=== PATIENT | male | born 1965 | race American Indian/Alaskan Native ===

== ENCOUNTER 2020-07-04 21:43 | Emergency (ER) | payer SELFPAY ==
--- NOTE | 2020-07-04 21:45 | Event Note ---
ED Screening Note Date of service: 07/04/20 Time: 21:45 ED Screening Note: Patient complains of shortness of breath, cough, body aches, and diarrhea x3 days History of hypertension This initial assessment/diagnostic orders/clinical plan/treatment(s) is/are subject to change based on patients health status, clinical progression and re- assessment by fellow clinical providers in the ED. Further treatment and workup at subsequent clinical providers discretion. Patient/guardian urged not to elope from the ED as their condition may be serious if not clinically assessed and managed. Initial orders include: Labs Chest x-ray
[2020-07-04 22:15] LABS: Basophils # (Auto) 0.1 K/mm3 (0.0-0.1); Basophils % (Auto) 0.8 % (0.0-1.8); Hematocrit 46.7 % (35.5-45.6); Hemoglobin 15.5 gm/dl (11.8-15.2); Lymphocytes # (Auto) 2.1 K/mm3 (1.2-5.4); Lymphocytes % (Auto) 32.4 % (13.4-35.0); Mean Corpuscular HGB Conc 33 % (32-34); Mean Corpuscular Volume 95 fl (84-94); Monocytes # (Auto) 0.3 K/mm3 (0.0-0.8); Platelet Count 154 K/mm3 (140-440); Red Cell Distribution Width 12.5 % (13.2-15.2)
[2020-07-04 22:35] LABS: Alanine Aminotransferase 66 units/L (7-56); Albumin 4.4 g/dL (3.9-5); BUN/Creatinine Ratio 13; Blood Urea Nitrogen 17 mg/dL (9-20); Calcium 9.2 mg/dL (8.4-10.2); Hemolysis Index 24
--- NOTE | 2020-07-04 22:54 | XRay Report ---
CHEST 2 VIEWS, 07/04/2020 10:16 PM INDICATION: Shortness of breath COMPARISON: None FINDINGS: Support devices: None. Heart: The cardiac silhouette is normal in size. Lungs/pleura: Low lung volumes are noted bilaterally without focal airspace consolidation or signific ant pleural effusion. Additional findings: No significant acute abnormality. IMPRESSION: 1. No evidence of acute cardiopulmonary process. Signer Name: Ruma Yañez MD Signed: 07/04/2020 10:49 PM Workstation Name: [id number]
--- NOTE | 2020-07-05 06:33 | Emergency Department Report ---
ED General Adult HPI - General Chief complaint: Dyspnea/Respdistress Stated complaint: COVID SYMP Time Seen by Provider: 07/04/20 21:44 Source: patient Mode of arrival: Ambulatory Limitations: No Limitations - History of Present Illness Initial comments: Patient is a 54-year-old hypertensive male presents to emergency department for evaluation of 4 days of nonproductive cough, body aches, and intermittent dyspnea exclusively while coughing. Patient denies chest pain, denies fever. Patient's tested positive for Covid, patient has COVID-19 test scheduled for later today. Patient denies calf pain or swelling. Severity scale (0 -10): 10 - Related Data Previous Rx's Medication Instructions Recorded Last Taken Type Cholecalciferol (Vitamin D3) 1,000 units PO DAILY #10 capsule 07/05/20 Unknown Rx [Vitamin D3] Melatonin [Melatonin 5MG CAP] 5 mg PO QHS #10 capsule 07/05/20 Unknown Rx Zinc Sulfate Heptahydrate [Zinc 1,000 gm MC DAILY #10 tab 07/05/20 Unknown Rx Sulfate] Allergies Allergy/AdvReac Type Severity Reaction Status Date / Time No Known Allergies Allergy Verified 04/08/15 17:46 ED Review of Systems ROS: Stated complaint: COVID SYMP Other details as noted in HPI Comment: All other systems reviewed and negative ED Past Medical Hx - Past Medical History Hx Hypertension: Yes Hx Psychiatric Treatment: No Additional medical history: deejay - Surgical History Additional Surgical History: deejay - Social History Smoking Status: Never Smoker - Medications Home Medications: Home Medications Medication Instructions Recorded Confirmed Last Taken Type Cholecalciferol (Vitamin D3) 1,000 units PO DAILY #10 capsule 07/05/20 Unknown Rx [Vitamin D3] Melatonin [Melatonin 5MG CAP] 5 mg PO QHS #10 capsule 07/05/20 Unknown Rx Zinc Sulfate Heptahydrate [Zinc 1,000 gm MC DAILY #10 tab 07/05/20 Unknown Rx Sulfate] ED Physical Exam - General Limitations: No Limitations General appearance: alert, in no apparent distress - Head Head exam: Present: atraumatic, normocephalic - Eye Eye exam: Present: normal appearance - ENT ENT exam: Present: mucous membranes moist - Neck Neck exam: Present: normal inspection - Respiratory Respiratory exam: Present: normal lung sounds bilaterally. Absent: respiratory distress - Cardiovascular Cardiovascular Exam: Present: regular rate, normal rhythm. Absent: systolic murmur, diastolic murmur, rubs, gallop - GI/Abdominal GI/Abdominal exam: Present: soft, normal bowel sounds - Rectal Rectal exam: Present: deferred - Extremities Exam Extremities exam: Present: normal inspection - Back Exam Back exam: Present: normal inspection - Neurological Exam Neurological exam: Present: alert, oriented X3 - Psychiatric Psychiatric exam: Present: normal affect, normal mood - Skin Skin exam: Present: warm, dry, intact, normal color. Absent: rash ED Course Vital Signs 07/04/20 07/05/20 07/05/20 21:46 06:09 06:16 Temperature 100.6 F H 99.5 F Pulse Rate 107 H 95 H Respiratory 18 24 Rate Blood Pressure 151/89 130/81 [Right] O2 Sat by Pulse 100 96 Oximetry - Reevaluation(s) Reevaluation #1: Patient treated with IV NS for dehydration per lab work and Tylenol 650 p.o. x1 for fever in ER. 07/05/20 06:34 07/05/20 06:35 Reevaluation #2: 07/05/20 06:35 On reevaluation, patient in no acute distress, lungs remain clear to auscultation bilaterally, patient nontoxic-appearing, advised to follow-up with Covid test today as scheduled. ED Medical Decision Making - Lab Data Result diagrams: 07/04/20 22:01 07/04/20 22:01 - EKG Data -: EKG Interpreted by Me (Sinus rhythm at 87, no ST-T changes, normal QRS as read by me) - Radiology Data Radiology results: report reviewed CHEST 2 VIEWS, 07/04/2020 10:16 PM INDICATION: Shortness of breath COMPARISON: None FINDINGS: Support devices: None. Heart: The cardiac silhouette is normal in size. Lungs/pleura: Low lung volumes are noted bilaterally without focal airspace consolidation or significant pleural effusion. Additional findings: No significant acute abnormality. IMPRESSION: 1. No evidence of acute cardiopulmonary process. Signer Name: Ruma Yañez MD Signed: 07/04/2020 10:49 PM Workstation Name: [id number] Transcribed By: EB Dictated By: Ruma Yañez MD Electronically Authenticated By: Ruma Yañez MD Signed Date/Time: 07/04/20 1068 Critical care attestation.: If time is entered above; I have spent that time in minutes in the direct care of this critically ill patient, excluding procedure time. ED Disposition Clinical Impression: Upper respiratory infection Disposition: DC-01 TO HOME OR SELFCARE Is pt being admited?: No Condition: Stable Instructions: COVID-19 Frequently Asked Questions, Upper Respiratory Infection, Adult, [id number] Additional Instructions: Follow-up for COVID-19 testing today as initially scheduled. Return to the emergency department for worsening symptoms. Prescriptions: Melatonin [Melatonin 5MG CAP] 5 mg PO QHS #10 capsule Cholecalciferol (Vitamin D3) [Vitamin D3] 1,000 units PO DAILY #10 capsule Zinc Sulfate Heptahydrate [Zinc Sulfate] 1,000 gm MC DAILY #10 tab Referrals: PRIMARY CARE, [Primary Care Provider] - 3-5 Days
[2020-07-05] MEDS ORDERED: ACETAMINOPHEN 325 MG TAB PO ONE (06:34)
[2020-07-05] MEDS ORDERED: SODIUM CHLORIDE 0.9% 1000 ML 1,000 ML ONE (06:50)
[2020-07-05] MEDS ORDERED: SODIUM CHLORIDE 0.9% 1000 ML 1,000 ML IV ONE (06:53)
[2020-07-05 09:04] VITALS: BP 131/74
== END 2020-07-05 09:02 | disposition home or self-care (01) ==
LOC: ED 21:43
DX: J06.9 Acute upper respiratory infection, unspecified (principal); I10 Essential (primary) hypertension; Z79.899 Other long term (current) drug therapy; Z98.890 Other specified postprocedural states
CPT/HCPCS: 36415; 71046; 80053; 83880; 84484; 85025; 93005; 96360; 96361; 99284; J7030

== ENCOUNTER 2020-07-08 17:26 | Inpatient (IN) | payer OTHER ==
[2020-07-08] MEDS ORDERED: SODIUM CHLORIDE 0.9% 1000 ML IV SOLN IV ONE (17:30)
[2020-07-08] MEDS ORDERED: dexAMETHasone 4 MG/ML VIAL IV ONE (17:33)
[2020-07-08] MEDS ORDERED: ACETAMINOPHEN 325 MG TAB PO ONE (17:33)
[2020-07-08] MEDS ORDERED: cefTRIAXone/NS 2 GM/100 ML 2 GM/100 ML BAG IV ONE (17:33)
--- NOTE | 2020-07-08 17:34 | Event Note ---
ED Screening Note ED Screening Note: Patient was diagnosed with Covid few days ago Now presenting for shortness of breath Patient is hypoxic, tachypneic, febrile, hypotensive This initial assessment/diagnostic orders/clinical plan/treatment(s) is/are subject to change based on patients health status, clinical progression and re-assessment by fellow clinical providers in the ED. Further treatment and workup at subsequent clinical providers discretion. Patient/guardian urged not to elope from the ED as their condition may be serious if not clinically assessed and managed. Initial orders include: Code sepsis initiated Charge nurse notified patient needs room now
--- NOTE | 2020-07-08 17:59 | Emergency Department Report ---
ED Shortness of Breath HPI - General Chief Complaint: Dyspnea/Respdistress Stated Complaint: POSS COVID Time Seen by Provider: 07/08/20 17:30 Source: patient, family Mode of arrival: Wheelchair Limitations: No Limitations - History of Present Illness Initial Comments: Patient is 54 years old male with history of hypertension. Patient presented to the ER complaining of shortness of breath, difficulty in breathing and generalized weakness for the last few days. Patient stated that symptoms get worse today. Patient tested positive for COVID-19 few days ago. Upon arrival to triage patient found to have a blood pressure of 96/50, temperature of 103, respiratory of 60 and an oxygen saturation of 76% on room air. Patient immediately moved to main ED and his oxygen saturation improved to 100% on 3 L of oxygen and respiratory rate came down to 26 after Tylenol and oxygen. Sepsis protocol immediately initiated and patient started on IV fluids, Rocephin, Zithromax and received Decadron 8mg IV. MD Complaint: shortness of breath, cough, chest pain -: days(s) Severity: severe Consistency: constant - Related Data Previous Rx's Medication Instructions Recorded Last Taken Type Cholecalciferol (Vitamin D3) 1,000 units PO DAILY #10 capsule 07/05/20 Unknown Rx [Vitamin D3] Melatonin [Melatonin 5MG CAP] 5 mg PO QHS #10 capsule 07/05/20 Unknown Rx Zinc Sulfate Heptahydrate [Zinc 1,000 gm MC DAILY #10 tab 07/05/20 Unknown Rx Sulfate] Allergies Allergy/AdvReac Type Severity Reaction Status Date / Time No Known Allergies Allergy Verified 04/08/15 17:46 ED Review of Systems ROS: Stated complaint: POSS COVID Other details as noted in HPI Comment: All other systems reviewed and negative Constitutional: chills, fever Respiratory: cough, shortness of breath, SOB with exertion, SOB at rest Cardiovascular: palpitations. denies: chest pain Gastrointestinal: denies: abdominal pain, nausea, vomiting Musculoskeletal: denies: back pain Neurological: denies: headache, weakness ED Past Medical Hx - Past Medical History Previous Medical History?: Yes Hx Hypertension: Yes Hx Psychiatric Treatment: No Additional medical history: deejay - Surgical History Additional Surgical History: deejay - Social History Smoking Status: Never Smoker - Medications Home Medications: Home Medications Medication Instructions Recorded Confirmed Last Taken Type Cholecalciferol (Vitamin D3) 1,000 units PO DAILY #10 capsule 07/05/20 Unknown Rx [Vitamin D3] Melatonin [Melatonin 5MG CAP] 5 mg PO QHS #10 capsule 07/05/20 Unknown Rx Zinc Sulfate Heptahydrate [Zinc 1,000 gm MC DAILY #10 tab 07/05/20 Unknown Rx Sulfate] ED Physical Exam - General Limitations: No Limitations General appearance: alert, in distress - Head Head exam: Present: atraumatic, normocephalic, normal inspection - Eye Eye exam: Present: normal appearance - ENT ENT exam: Present: mucous membranes dry - Neck Neck exam: Present: normal inspection, full ROM. Absent: tenderness, meningismus, lymphadenopathy, thyromegaly - Respiratory Respiratory exam: Present: respiratory distress, rales, accessory muscle use. Absent: wheezes, rhonchi, stridor, decreased breath sounds, prolonged expiratory - Cardiovascular Cardiovascular Exam: Present: tachycardia - GI/Abdominal GI/Abdominal exam: Present: soft, normal bowel sounds. Absent: distended, tenderness, guarding, rebound, rigid, organomegaly, mass, bruit, pulsatile mass, hernia - Extremities Exam Extremities exam: Present: normal inspection, full ROM, normal capillary refill. Absent: pedal edema, calf tenderness - Back Exam Back exam: Present: normal inspection, full ROM. Absent: CVA tenderness (R), CVA tenderness (L) - Neurological Exam Neurological exam: Present: alert, oriented X3, CN II-XII intact, normal gait, reflexes normal. Absent: motor sensory deficit - Psychiatric Psychiatric exam: Present: anxious - Skin Skin exam: Present: warm, dry, intact, normal color ED Course Vital Signs 07/08/20 07/08/20 07/08/20 17:30 17:34 17:50 Temperature 103 F H Pulse Rate 132 H 126 H Respiratory 60 H 60 H 40 H Rate Blood Pressure 130/92 Blood Pressure 96/69 [Right] O2 Sat by Pulse 72 L 92 Oximetry 07/08/20 07/08/20 07/08/20 18:00 18:30 18:44 Temperature Pulse Rate 126 H 127 H Respiratory 40 H 43 H 37 H Rate Blood Pressure 104/85 Blood Pressure 136/96 [Right] O2 Sat by Pulse 94 94 100 Oximetry ED Medical Decision Making - Lab Data Result diagrams: 07/08/20 17:38 12/20/20 17:38 - Radiology Data Radiology results: report reviewed - Medical Decision Making Patient is 54 years old male with history of hypertension. Patient presented to the ER complaining of shortness of breath, difficulty in breathing and generalized weakness for the last few days. Patient stated that symptoms get worse today. Patient tested positive for COVID-19 few days ago. Upon arrival to triage patient found to have a blood pressure of 96/50, temperature of 103, respiratory of 60 and an oxygen saturation of 76% on room air. Patient immediately moved to main ED and his oxygen saturation improved to 100% on 3 L of oxygen and respiratory rate came down to 26 after Tylenol and oxygen. Sepsis protocol immediately initiated and patient started on IV fluids, Rocephin, Zithromax and received Decadron 8mg IV. Chest x-ray showed bilateral diffuse infiltrate. Patient stated that he is feeling better. I discussed the patient with Dr. Núñez, He agreed to admit the patient to medical service for further management. Critical Care Time: Yes Critical care time in (mins) excluding proc time.: 30 Critical care attestation.: If time is entered above; I have spent that time in minutes in the direct care of this critically ill patient, excluding procedure time. ED Disposition Clinical Impression: Acute respiratory failure due to COVID-19, Bilateral pneumonia, Sepsis Disposition: DC-09 OP ADMIT IP TO THIS HOSP Is pt being admited?: Yes Condition: Stable Instructions: Bacterial Pneumonia (ED)
[2020-07-08] MEDS ORDERED: AZITHROMYCIN 500 MG in SODIUM CHLORIDE 0.9% 250ML 250 ML IV ONE (18:00)
--- NOTE | 2020-07-08 18:16 | XRay Report ---
CHEST 1 VIEW 07/08/2020 6:00 PM INDICATION / CLINICAL INFORMATION: SOB, COVID +, hypoxia. COMPARISON: 07/04/2020 FINDINGS: SUPPORT DEVICES: None. HEART / MEDIASTINUM: No significant abnormality. LUNGS / PLEURA: There are patchy airspace opacities bilaterally.. No pneumothorax. ADDITIONAL FINDINGS: No significant additional findings. IMPRESSION: 1. There are patchy airspace opacities bilaterally characteristic of pneumonia. Signer Name: Darrell Vinson MD Signed: 07/08/2020 6:11 PM Workstation Name: [id number]
[2020-07-08 18:49] LABS: Alanine Aminotransferase 32 units/L (7-56); Albumin 3.5 g/dL (3.9-5); BUN/Creatinine Ratio 17; Bilirubin,Direct < 0.2 mg/dL (0-0.2); Blood Urea Nitrogen 22 mg/dL (9-20); Calcium 9.4 mg/dL (8.4-10.2); Hemolysis Index 46
[2020-07-08 18:50] LABS: Bilirubin,Urine NEG (Negative); Blood,Urine NEG (Negative); Color,Urine Amber (Yellow); Mucus,Urine FEW /HPF
[2020-07-08 18:51] LABS: Basophils % (Auto) 0.2 % (0.0-1.8); Hematocrit 47.8 % (35.5-45.6); Hemoglobin 16.1 gm/dl (11.8-15.2); Mean Corpuscular HGB Conc 34 % (32-34); Mean Corpuscular Volume 95 fl (84-94); Monocytes # (Auto) 0.4 K/mm3 (0.0-0.8); Monocytes % (Auto) 4.2 % (0.0-7.3); Platelet Count 214 K/mm3 (140-440); Red Blood Count 5.01 M/mm3 (3.65-5.03); Red Cell Distribution Width 12.4 % (13.2-15.2)
[2020-07-08 19:00] LABS: Protein,Urine >500 mg/dL (Negative)
[2020-07-08] MEDS ORDERED: MORPHINE 2 MG/1 ML INJ IV PRN (21:33)
--- NOTE | 2020-07-08 21:40 | History and Physical Report ---
History of Present Illness Date of examination: 07/08/20 Date of admission: 07/08/2020 Chief complaint: Shortness of breath Cough Fever History of present illness: 54-year-old male with known history of hypertension who tested Covid positive about 3 days ago presenting to the emergency room today complaining of shortness of breath and generalized weakness over the past few days. Shortness of breath is said to have gotten worse today and therefore decided to report to the emergency room. Upon arrival in the emergency room he had a blood pressure of 96/50, temperature of 1 103 F, tachypneic with an O2 saturation of 76% on room air. He was subsequently placed on oxygen 3 L and oxygen saturation improved to about 100%. Work-up in the emergency room today shows bilateral pneumonia on chest x-ray. Lactic acid also elevated at 2.40 Patient was placed on IV fluid per sepsis protocol, IV antibiotics and steroid. He has been admitted with pneumonia possibly secondary to COVID-19. Past History Past Medical History: hypertension Past Surgical History: No surgical history Social history: no significant social history Family history: no significant family history Medications and Allergies Allergies Allergy/AdvReac Type Severity Reaction Status Date / Time No Known Allergies Allergy Verified 04/08/15 17:46 Home Medications Medication Instructions Recorded Confirmed Last Taken Type Cholecalciferol (Vitamin D3) 1,000 units PO DAILY #10 capsule 07/05/20 Unknown Rx [Vitamin D3] Melatonin [Melatonin 5MG CAP] 5 mg PO QHS #10 capsule 07/05/20 Unknown Rx Zinc Sulfate Heptahydrate [Zinc 1,000 gm MC DAILY #10 tab 07/05/20 Unknown Rx Sulfate] Review of Systems Constitutional: fever, chills, fatigue Ears, nose, mouth and throat: no nasal congestion, no sore throat Cardiovascular: no chest pain, no palpitations Respiratory: cough, shortness of breath Gastrointestinal: no abdominal pain, no nausea, no vomiting, no diarrhea Genitourinary Male: no dysuria, no hematuria, no flank pain Musculoskeletal: no neck pain, no low back pain Integumentary: no rash, no pruritis Neurological: no headaches, no confusion Psychiatric: no anxiety, no depression Exam - Constitutional Vitals: Temp Pulse Resp BP Pulse Ox 103 F H 105 H 31 H 114/66 97 07/08/20 17:30 07/08/20 20:39 07/08/20 20:39 07/08/20 20:39 07/08/20 20:39 General appearance: Present: no acute distress, well-nourished - EENT Eyes: Present: PERRL, EOM intact. Absent: scleral icterus ENT: hearing intact, clear oral mucosa, dentition normal - Neck Neck: Present: supple, normal ROM - Respiratory Respiratory effort: normal Respiratory: bilateral: diminished - Cardiovascular Rhythm: regular Heart Sounds: Present: S1 & S2. Absent: gallop, systolic murmur, diastolic murmur, rub - Extremities Extremities: no ischemia, pulses intact, pulses symmetrical, No edema, Full ROM Peripheral Pulses: within normal limits - Abdominal General gastrointestinal: Present: soft, non-tender, non-distended, normal bowel sounds. Absent: mass - Integumentary Integumentary: Present: clear, warm, dry. Absent: rash - Musculoskeletal Musculoskeletal: strength equal bilaterally - Psychiatric Psychiatric: appropriate mood/affect, intact judgment & insight, memory intact, cooperative - Neurologic Neurologic: CNII-XII intact, no focal deficits, moves all extremities Results - Labs CBC & Chem 7: 07/08/20 17:38 07/08/20 17:38 Labs: Abnormal lab results 07/08/20 07/08/20 07/08/20 Range/Units 17:38 17:38 17:38 Hgb 16.1 H (11.8-15.2) gm/dl Hct 47.8 H (35.5-45.6) % MCV 95 H (84-94) fl RDW 12.4 L (13.2-15.2) % Lymph % (Auto) 12.0 L (13.4-35.0) % Lymph # (Auto) 1.0 L (1.2-5.4) K/mm3 Seg Neutrophils % 83.6 H (40.0-70.0) % D-Dimer 284.74 H (0-234) ng/mlDDU Sodium (137-145) mmol/L Chloride (98-107) mmol/L BUN (9-20) mg/dL Glucose (75-100) mg/dL Lactic Acid 2.40 H* (0.7-2.0) mmol/L Ferritin (30.0-300.0) ng/mL AST (5-40) units/L Lactate Dehydrogenase (91-180) units/L C-Reactive Protein (0.00-1.30) mg/dL Total Protein (6.3-8.2) g/dL Albumin (3.9-5) g/dL 07/08/20 07/08/20 07/08/20 Range/Units 17:38 17:38 17:38 Hgb (11.8-15.2) gm/dl Hct (35.5-45.6) % MCV (84-94) fl RDW (13.2-15.2) % Lymph % (Auto) (13.4-35.0) % Lymph # (Auto) (1.2-5.4) K/mm3 Seg Neutrophils % (40.0-70.0) % D-Dimer (0-234) ng/mlDDU Sodium 133 L (137-145) mmol/L Chloride 92.8 L (98-107) mmol/L BUN 22 H (9-20) mg/dL Glucose 131 H 128 H (75-100) mg/dL Lactic Acid (0.7-2.0) mmol/L Ferritin > 2000.0 H (30.0-300.0) ng/mL AST 56 H (5-40) units/L Lactate Dehydrogenase 604 H (91-180) units/L C-Reactive Protein 29.00 H (0.00-1.30) mg/dL Total Protein 8.4 H (6.3-8.2) g/dL Albumin 3.5 L (3.9-5) g/dL Assessment and Plan - Patient Problems (1) Bilateral pneumonia Current Visit: Yes Status: Acute Plan to address problem: Patient started on empiric IV antibiotics. We will await culture results. He however tested positive for COVID-19 few days ago. (2) Acute respiratory failure due to COVID-19 Current Visit: Yes Status: Acute Plan to address problem: Possibly due to the Covid pneumonia. Patient placed on oxygen by nasal cannula and will keep O2 saturation greater or equal to 94%. We will continue on IV antibiotics, placed on IV steroid. Patient also placed on isolation precautions. Infectious disease has been consulted for evaluation. (3) Sepsis Current Visit: Yes Status: Acute Plan to address problem: Secondary to the underlying pneumonia. Patient has been given some IV fluid and IV antibiotics. (4) DVT prophylaxis Current Visit: Yes Status: Acute Plan to address problem: Patient placed on subcutaneous Lovenox. (5) Full code status Current Visit: Yes Status: Acute Plan to address problem: Patient is full code.
[2020-07-08] MEDS ORDERED: SODIUM CHLORIDE 0.9% 1000 ML 1,000 ML IV SCH (21:45)
[2020-07-08] MEDS: ENOXAPARIN 40 MG/0.4 ML INJ SUB-Q SCH (22:42)
[2020-07-09] MEDS: ONDANSETRON 4 MG/2 ML INJ IV PRN (04:37)
[2020-07-09 06:26] LABS: Hematocrit 40.3 % (35.5-45.6); Hemoglobin 13.4 gm/dl (11.8-15.2); Lymphocytes # (Auto) 0.4 K/mm3 (1.2-5.4); Lymphocytes % (Auto) 5.4 % (13.4-35.0); Mean Corpuscular HGB Conc 33 % (32-34); Mean Corpuscular Volume 94 fl (84-94); Monocytes # (Auto) 0.3 K/mm3 (0.0-0.8); Monocytes % (Auto) 5.2 % (0.0-7.3); Red Blood Count 4.28 M/mm3 (3.65-5.03); Red Cell Distribution Width 12.3 % (13.2-15.2)
[2020-07-09 06:41] LABS: INR 1.03 (0.87-1.13)
[2020-07-09 06:43] LABS: BUN/Creatinine Ratio 23; Blood Urea Nitrogen 23 mg/dL (9-20); Calcium 8.4 mg/dL (8.4-10.2); Hemolysis Index 16
[2020-07-09 06:44] LABS: Platelet Count 227 K/mm3 (140-440)
--- NOTE | 2020-07-09 07:44 | Progress Note ---
Assessment and Plan Assessment and plan: 1) Bilateral pneumonia Current Visit: Yes Status: Acute Plan to address problem: Patient started on empiric IV antibiotics. We will await culture results. He however tested positive for COVID-19 few days ago. (2) Acute respiratory failure due to COVID-19 Current Visit: Yes Status: Acute Plan to address problem: Possibly due to the Covid pneumonia. Patient placed on oxygen by nasal cannula and will keep O2 saturation greater or equal to 94%. We will continue on IV antibiotics, placed on IV steroid. Patient also placed on isolation precautions. Infectious disease has been consulted for evaluation. (3) Sepsis Current Visit: Yes Status: Acute Plan to address problem: Secondary to the underlying pneumonia. Patient has been given some IV fluid and IV antibiotics. (4) DVT prophylaxis Current Visit: Yes Status: Acute Plan to address problem: Patient placed on subcutaneous Lovenox. (5) Full code status Current Visit: Yes Status: Acute Plan to address problem: Patient is full code. 07/09/2020; patient is admitted for sepsis secondary to Covid-19 pneumonia versus bacterial pneumonia. Patient is on IV Decadron and ID is consulted for remdesivir treatment. Patient is still short of breath, on 10 L of high flow o xygen. History Interval history: Patient was seen and evaluated this morning Patient is on 15 L of high flow oxygen Hospitalist Physical - Physical exam Narrative exam: Not in cardiopulmonary distress. The patient appeared well nourished and normally developed. Vital signs as documented. Head exam is unremarkable. No scleral icterus . Neck is without jugular venous distension, thyromegaly, or carotid bruits. Lungs are clear to auscultation. Cardiac exam reveals regular rate and Rhythm. Abdominal exam reveals normal bowel sounds, nontender, no organomegaly. Extremities are nonedematous and both femoral and pedal pulses are normal. [employer]: Alert and oriented 3. No focal weakness. - Constitutional Vitals: Temp Pulse Resp BP Pulse Ox 97.6 F 70 26 H 122/75 94 07/09/20 02:00 07/09/20 04:02 07/09/20 04:02 07/09/20 04:02 07/09/20 05:27 General appearance: Present: no acute distress, well-nourished Results - Labs CBC & Chem 7: 07/09/20 06:00 07/09/20 06:00 Labs: Laboratory Last Values WBC 6.7 K/mm3 (4.5-11.0) 07/09/20 06:00 RBC 4.28 M/mm3 (3.65-5.03) 07/09/20 06:00 Hgb 13.4 gm/dl (11.8-15.2) 07/09/20 06:00 Hct 40.3 % (35.5-45.6) D 07/09/20 06:00 MCV 94 fl (84-94) 07/09/20 06:00 MCH 31 pg (28-32) 07/09/20 06:00 MCHC 33 % (32-34) 07/09/20 06:00 RDW 12.3 % (13.2-15.2) L 07/09/20 06:00 Plt Count 227 K/mm3 (140-440) 07/09/20 06:00 Lymph % (Auto) 5.4 % (13.4-35.0) L 07/09/20 06:00 [place] % (Auto) 5.2 % (0.0-7.3) 07/09/20 06:00 Eos % (Auto) 0.0 % (0.0-4.3) 07/09/20 06:00 Baso % (Auto) 0.0 % (0.0-1.8) 07/09/20 06:00 Lymph # (Auto) 0.4 K/mm3 (1.2-5.4) L 07/09/20 06:00 [place] # (Auto) 0.3 K/mm3 (0.0-0.8) 07/09/20 06:00 Eos # (Auto) 0.0 K/mm3 (0.0-0.4) 07/09/20 06:00 Baso # (Auto) 0.0 K/mm3 (0.0-0.1) 07/09/20 06:00 Seg Neutrophils % 89.4 % (40.0-70.0) H 07/09/20 06:00 Seg Neutrophils # 6.0 K/mm3 (1.8-7.7) 07/09/20 06:00 PT 13.3 Sec. (12.2-14.9) 07/09/20 06:00 INR 1.03 (0.87-1.13) 07/09/20 06:00 D-Dimer 284.74 ng/mlDDU (0-234) H 07/08/20 17:38 Sodium 138 mmol/L (137-145) 07/09/20 06:00 Potassium 4.8 mmol/L (3.6-5.0) 07/09/20 06:00 Chloride 101.6 mmol/L (98-107) 07/09/20 06:00 Carbon Dioxide 24 mmol/L (22-30) 07/09/20 06:00 Anion Gap 17 mmol/L 07/09/20 06:00 BUN 23 mg/dL (9-20) H 07/09/20 06:00 Creatinine 1.0 mg/dL (0.8-1.3) 07/09/20 06:00 Estimated GFR > 60 ml/min 07/09/20 06:00 BUN/Creatinine Ratio 23 % 07/09/20 06:00 Glucose 179 mg/dL (75-100) H 07/09/20 06:00 Lactic Acid 1.00 mmol/L (0.7-2.0) 07/08/20 20:58 Calcium 8.4 mg/dL (8.4-10.2) 07/09/20 06:00 Ferritin > 2000.0 ng/mL (30.0-300.0) H 07/08/20 17:38 Total Bilirubin 0.40 mg/dL (0.1-1.2) 07/08/20 17:38 Direct Bilirubin < 0.2 mg/dL (0-0.2) 07/08/20 17:38 Indirect Bilirubin 0.2 mg/dL 07/08/20 17:38 AST 56 units/L (5-40) H 07/08/20 17:38 ALT 32 units/L (7-56) 07/08/20 17:38 Alkaline Phosphatase 57 units/L (35-129) 07/08/20 17:38 Lactate Dehydrogenase 604 units/L (91-180) H 07/08/20 17:38 C-Reactive Protein 29.00 mg/dL (0.00-1.30) H 07/08/20 17:38 Total Protein 8.4 g/dL (6.3-8.2) H 07/08/20 17:38 Albumin 3.5 g/dL (3.9-5) L 07/08/20 17:38 Albumin/Globulin Ratio 0.7 % 07/08/20 17:38 Urine Color Jaclyn (Yellow) 07/08/20 18:30 Urine Turbidity Clear (Clear) 07/08/20 18:30 Urine pH 5.0 (5.0-7.0) 07/08/20 18:30 Ur Specific [place] 1.027 (1.003-1.030) 07/08/20 18:30 Urine Protein >500 mg/dL (Negative) 07/08/20 18:30 Urine Glucose (UA) Neg mg/dL (Negative) 07/08/20 18:30 Urine Ketones Neg mg/dL (Negative) 07/08/20 18:30 Urine Blood Neg (Negative) 07/08/20 18:30 Urine Nitrite Neg (Negative) 07/08/20 18:30 Urine Bilirubin Neg (Negative) 07/08/20 18:30 Urine Urobilinogen 4.0 mg/dL (<2.0) 07/08/20 18:30 Ur Leukocyte Esterase Neg (Negative) 07/08/20 18:30 Urine WBC (Auto) 2.0 /HPF (0.0-6.0) 07/08/20 18:30 Urine RBC (Auto) 2.0 /HPF (0.0-6.0) 07/08/20 18:30 U Epithel Cells (Auto) 1.0 /HPF (0-13.0) 07/08/20 18:30 Urine Mucus Few /HPF 07/08/20 18:30 Microbiology: Microbiology 07/08/20 17:38 Peripheral/Venous Blood Culture - Preliminary Culture in Progress 07/08/20 17:38 Peripheral/Venous Blood Culture - Preliminary Culture in Progress Qiu/IV: IV Catheter Type [Right Peripheral IV Antecubital] IV Catheter Type [Left Peripheral IV Antecubital] Active Medications - Current Medications Current Medications: Generic Name Dose Route Start Last Admin Trade Name Freq PRN Reason Stop Dose Admin Acetaminophen 650 mg 07/08/20 21:33 Acetaminophen 325 Mg Tab PO Q4H PRN Pain MILD(1-3)/Fever >100.5/MORENO Dexamethasone 6 mg 07/09/20 10:00 Dexamethasone 4 Mg/Ml Vial IV Q24HR [facility] Enoxaparin Sodium 40 mg 07/08/20 22:00 07/08/20 22:42 Enoxaparin 40 Mg/0.4 Ml Inj SUB-Q 40 mg QDAY@2200 BRIANNA Administration Protocol Sodium Chloride 1,000 mls @ 75 mls/hr 07/08/20 21:45 Nacl 0.9% 1000 Ml IV DIRECT BRIANNA Ceftriaxone Sodium 2 gm in 100 mls @ 200 mls/hr 07/09/20 10:00 Rocephin/Ns 2 Gm/100 Ml IV Q24HR [facility] Protocol Azithromycin 500 mg/ Sodium 250 mls @ 250 mls/hr 07/09/20 10:00 Chloride IV Q24HR [facility] Protocol Magnesium Hydroxide 30 ml 07/08/20 21:33 Magnesium Hydroxide (Mom) Oral Liqd Udc PO Q4H PRN Constipation Morphine Sulfate 2 mg 07/08/20 21:33 07/09/20 04:37 Morphine 2 Mg/1 Ml Inj IV 2 mg Q4H PRN Administration Pain, Moderate (4-6) Ondansetron HCl 4 mg 07/08/20 21:33 07/09/20 04:37 Ondansetron 4 Mg/2 Ml Inj IV 4 mg Q8H PRN Administration Nausea And Vomiting Sodium Chloride 10 ml 07/08/20 22:00 07/08/20 22:45 Sodium Chloride 0.9% 10 Ml Flush Syringe IV 10 ml BID BRIANNA Administration Sodium Chloride 10 ml 07/08/20 21:33 Sodium Chloride 0.9% 10 Ml Flush Syringe IV PRN PRN LINE FLUSH
[2020-07-09] MEDS ORDERED: dexAMETHasone 4 MG/ML VIAL IV SCH (10:00)
[2020-07-09] MEDS ORDERED: AZITHROMYCIN 500 MG in SODIUM CHLORIDE 0.9% 250ML 250 ML IV SCH (10:00)
[2020-07-09] MEDS: cefTRIAXone/NS 2 GM/100 ML 2 GM/100 ML BAG IV SCH (10:03)
--- NOTE | 2020-07-09 13:37 | Consultation ---
History of Present Illness Consult date: 07/09/20 Requesting physician: JEANETTE BEACH Past History Past Medical History: hypertension Past Surgical History: No surgical history Social history: no significant social history Family history: no significant family history Medications and Allergies Allergies Allergy/AdvReac Type Severity Reaction Status Date / Time No Known Allergies Allergy Verified 04/08/15 17:46 Home Medications Medication Instructions Recorded Confirmed Last Taken Type Cholecalciferol (Vitamin D3) 1,000 units PO DAILY #10 capsule 07/05/20 Unknown Rx [Vitamin D3] Melatonin [Melatonin 5MG CAP] 5 mg PO QHS #10 capsule 07/05/20 Unknown Rx Zinc Sulfate Heptahydrate [Zinc 1,000 gm MC DAILY #10 tab 07/05/20 Unknown Rx Sulfate] Active Meds: Active Medications Acetaminophen (Acetaminophen 325 Mg Tab) 650 mg PO Q4H PRN PRN Reason: Pain MILD(1-3)/Fever >100.5/MORENO Azithromycin (Azithromycin 250 Mg Tab) 500 mg PO QDAY BRIANNA Stop: 07/12/20 10:01 Dexamethasone (Dexamethasone 4 Mg Tab) 6 mg PO DAILY BRIANNA Stop: 07/17/20 10:01 Enoxaparin Sodium (Enoxaparin 40 Mg/0.4 Ml Inj) 40 mg SUB-Q QDAY@2200 BRIANNA; Protocol Last Admin: 07/08/20 22:42 Dose: 40 mg Documented by: Sodium Chloride (Nacl 0.9% 1000 Ml) 1,000 mls @ 75 mls/hr IV DIRECT BRIANNA Ceftriaxone Sodium (Rocephin/Ns 2 Gm/100 Ml) 2 gm in 100 mls @ 200 mls/hr IV Q24HR RBIANNA; Protocol Last Admin: 07/09/20 10:03 Dose: 200 mls/hr Documented by: Azithromycin 500 mg/ Sodium (Chloride) 250 mls @ 250 mls/hr IV Q24HR BRIANNA; Protocol Stop: 07/09/20 14:00 Last Admin: 07/09/20 10:56 Dose: 250 mls/hr Documented by: Magnesium Hydroxide (Magnesium Hydroxide (Mom) Oral Liqd Udc) 30 ml PO Q4H PRN PRN Reason: Constipation Morphine Sulfate (Morphine 2 Mg/1 Ml Inj) 2 mg IV Q4H PRN PRN Reason: Pain, Moderate (4-6) Last Admin: 07/09/20 04:37 Dose: 2 mg Documented by: Ondansetron HCl (Ondansetron 4 Mg/2 Ml Inj) 4 mg IV Q8H PRN PRN Reason: Nausea And Vomiting Last Admin: 07/09/20 04:37 Dose: 4 mg Documented by: Pseudoephedrine/Acetam/Chlorphenir (Guaifenesin/Codeine 100-10mg Oral Liqd 5 Ml) 15 ml PO Q4H PRN PRN Reason: Cough Sodium Chloride (Sodium Chloride 0.9% 10 Ml Flush Syringe) 10 ml IV BID BRIANNA Last Admin: 07/09/20 10:02 Dose: 10 ml Documented by: Sodium Chloride (Sodium Chloride 0.9% 10 Ml Flush Syringe) 10 ml IV PRN PRN PRN Reason: LINE FLUSH Physical Examination Vital signs: Vital Signs Temp Pulse Resp BP Pulse Ox 103 F H 132 H 60 H 96/69 72 L 07/08/20 17:30 07/08/20 17:30 07/08/20 17:30 07/08/20 17:30 07/08/20 17:30 Results - Laboratory Findings CBC and BMP: 07/09/20 06:00 07/09/20 06:00 PT/INR, D-dimer PT 13.3 Sec. (12.2-14.9) 07/09/20 06:00 INR 1.03 (0.87-1.13) 07/09/20 06:00 D-Dimer 284.74 ng/mlDDU (0-234) H 07/08/20 17:38 Abnormal lab findings: Abnormal Labs 07/08/20 07/08/20 07/08/20 17:38 17:38 17:38 Hgb 16.1 H Hct 47.8 H MCV 95 H RDW 12.4 L Lymph % (Auto) 12.0 L Lymph # (Auto) 1.0 L Seg Neutrophils % 83.6 H D-Dimer 284.74 H Sodium Chloride BUN Glucose Lactic Acid 2.40 H* Ferritin AST Lactate Dehydrogenase C-Reactive Protein Total Protein Albumin 07/08/20 07/08/20 07/08/20 17:38 17:38 17:38 Hgb Hct MCV RDW Lymph % (Auto) Lymph # (Auto) Seg Neutrophils % D-Dimer Sodium 133 L Chloride 92.8 L BUN 22 H Glucose 131 H 128 H Lactic Acid Ferritin > 2000.0 H AST 56 H Lactate Dehydrogenase 604 H C-Reactive Protein 29.00 H Total Protein 8.4 H Albumin 3.5 L 07/09/20 07/09/20 06:00 06:00 Hgb Hct MCV RDW 12.3 L Lymph % (Auto) 5.4 L Lymph # (Auto) 0.4 L Seg Neutrophils % 89.4 H D-Dimer Sodium Chloride BUN 23 H Glucose 179 H Lactic Acid Ferritin AST Lactate Dehydrogenase C-Reactive Protein Total Protein Albumin Assessment and Plan 54 y/o male with acute respiratory failure found to be COVID positive. Prone as tolerated during the day, and sleep prone at night No additional IVF's, need to keep as dry as possible Agree with steroids, Remdesivir if candidate Wean FiO2 for sats >88% Appears patient was given about 2 liters in the ED but will await for final total for I/O tomorrow then assess need for lasix.
--- NOTE | 2020-07-09 14:57 | Consultation ---
History of Present Illness - Reason for Consult Consult date: 07/09/20 COVID-19 Requesting physician: BAR ADAMS - History of Present Illness The patient is a 53-year-old male with hypertension admitted to the hospital with COVID-19, hypoxia. He was noted to have a fever on admission, hypoxic on admission and currently requiring high flow. Initially required BiPAP. Review of Systems: reviewed in the chart, unable to obtain, minimize risk of transmission Past History Past Medical History: hypertension Past Surgical History: No surgical history Social history: no significant social history Family history: no significant family history Medications and Allergies Allergies Allergy/AdvReac Type Severity Reaction Status Date / Time No Known Allergies Allergy Verified 04/08/15 17:46 Home Medications Medication Instructions Recorded Confirmed Last Taken Type Cholecalciferol (Vitamin D3) 1,000 units PO DAILY #10 capsule 07/05/20 Unknown Rx [Vitamin D3] Melatonin [Melatonin 5MG CAP] 5 mg PO QHS #10 capsule 07/05/20 Unknown Rx Zinc Sulfate Heptahydrate [Zinc 1,000 gm MC DAILY #10 tab 07/05/20 Unknown Rx Sulfate] Active Meds: Active Medications Acetaminophen (Acetaminophen 325 Mg Tab) 650 mg PO Q4H PRN PRN Reason: Pain MILD(1-3)/Fever >100.5/MORENO Azithromycin (Azithromycin 250 Mg Tab) 500 mg PO QDAY BRIANNA Stop: 07/12/20 10:01 Dexamethasone (Dexamethasone 4 Mg Tab) 6 mg PO DAILY BRIANNA Stop: 07/17/20 10:01 Enoxaparin Sodium (Enoxaparin 40 Mg/0.4 Ml Inj) 40 mg SUB-Q QDAY@2200 BRIANNA; Protocol Last Admin: 07/08/20 22:42 Dose: 40 mg Documented by: Ceftriaxone Sodium (Rocephin/Ns 2 Gm/100 Ml) 2 gm in 100 mls @ 200 mls/hr IV Q24HR BRIANNA; Protocol Last Admin: 07/09/20 10:03 Dose: 200 mls/hr Documented by: REMDESIVIR 200 mg/ Sodium (Chloride) 250 mls @ 500 mls/hr IV ONCE ONE Stop: 07/09/20 15:29 REMDESIVIR 100 mg/ Sodium (Chloride) 250 mls @ 500 mls/hr IV Q24HR@2100 BRIANNA Stop: 07/13/20 21:29 Magnesium Hydroxide (Magnesium Hydroxide (Mom) Oral Liqd Udc) 30 ml PO Q4H PRN PRN Reason: Constipation Morphine Sulfate (Morphine 2 Mg/1 Ml Inj) 2 mg IV Q4H PRN PRN Reason: Pain, Moderate (4-6) Last Admin: 07/09/20 04:37 Dose: 2 mg Documented by: Ondansetron HCl (Ondansetron 4 Mg/2 Ml Inj) 4 mg IV Q8H PRN PRN Reason: Nausea And Vomiting Last Admin: 07/09/20 04:37 Dose: 4 mg Documented by: Pseudoephedrine/Acetam/Chlorphenir (Guaifenesin/Codeine 100-10mg Oral Liqd 5 Ml) 15 ml PO Q4H PRN PRN Reason: Cough Sodium Chloride (Sodium Chloride 0.9% 10 Ml Flush Syringe) 10 ml IV BID [facility] Last Admin: 07/09/20 10:02 Dose: 10 ml Documented by: Sodium Chloride (Sodium Chloride 0.9% 10 Ml Flush Syringe) 10 ml IV PRN PRN PRN Reason: LINE FLUSH Sodium Chloride (Sodium Chloride 0.9% 50 Ml Ivpb) 50 ml IV Q24HR@2100 [facility] Stop: 07/12/20 21:01 Physical Examination - Physical Exam Narrative exam: Physical Exam (reviewed in chart to minimize risk of transmission) Constitutional: deferred Head, Ears, Nose: deferred Eyes: deferred Neck: deferred Oral: deferred Cardiovascular: deferred Respiratory: deferred GI: deferred Musculoskeletal: deferred Skin: deferred Hem/Lymphatic: deferred Psych: deferred Neurological: deferred - Constitutional Vitals: Vital Signs Temp Pulse Resp BP Pulse Ox 97.8 F 92 H 35 H 130/91 93 07/09/20 07:55 07/09/20 13:00 07/09/20 13:00 07/09/20 13:00 07/09/20 13:00 Temperature -Last 24 Hours Temperature 97.8 F Temperature 97.6 F Temperature 103 F Results - Labs CBC & Chem 7: 07/09/20 06:00 07/09/20 06:00 Labs: Abnormal lab results 07/08/20 07/08/20 07/08/20 Range/Units 17:38 17:38 17:38 Hgb 16.1 H (11.8-15.2) gm/dl Hct 47.8 H (35.5-45.6) % MCV 95 H (84-94) fl RDW 12.4 L (13.2-15.2) % Lymph % (Auto) 12.0 L (13.4-35.0) % Lymph # (Auto) 1.0 L (1.2-5.4) K/mm3 Seg Neutrophils % 83.6 H (40.0-70.0) % D-Dimer 284.74 H (0-234) ng/mlDDU Sodium (137-145) mmol/L Chloride (98-107) mmol/L BUN (9-20) mg/dL Glucose (75-100) mg/dL Lactic Acid 2.40 H* (0.7-2.0) mmol/L Ferritin (30.0-300.0) ng/mL AST (5-40) units/L Lactate Dehydrogenase (91-180) units/L C-Reactive Protein (0.00-1.30) mg/dL Total Protein (6.3-8.2) g/dL Albumin (3.9-5) g/dL Coronavirus (PCR) (Negative) 07/08/20 07/08/20 07/08/20 Range/Units 17:38 17:38 17:38 Hgb (11.8-15.2) gm/dl Hct (35.5-45.6) % MCV (84-94) fl RDW (13.2-15.2) % Lymph % (Auto) (13.4-35.0) % Lymph # (Auto) (1.2-5.4) K/mm3 Seg Neutrophils % (40.0-70.0) % D-Dimer (0-234) ng/mlDDU Sodium 133 L (137-145) mmol/L Chloride 92.8 L (98-107) mmol/L BUN 22 H (9-20) mg/dL Glucose 131 H 128 H (75-100) mg/dL Lactic Acid (0.7-2.0) mmol/L Ferritin > 2000.0 H (30.0-300.0) ng/mL AST 56 H (5-40) units/L Lactate Dehydrogenase 604 H (91-180) units/L C-Reactive Protein 29.00 H (0.00-1.30) mg/dL Total Protein 8.4 H (6.3-8.2) g/dL Albumin 3.5 L (3.9-5) g/dL Coronavirus (PCR) (Negative) 07/09/20 07/09/20 07/09/20 Range/Units 06:00 06:00 08:38 Hgb (11.8-15.2) gm/dl Hct (35.5-45.6) % MCV (84-94) fl RDW 12.3 L (13.2-15.2) % Lymph % (Auto) 5.4 L (13.4-35.0) % Lymph # (Auto) 0.4 L (1.2-5.4) K/mm3 Seg Neutrophils % 89.4 H (40.0-70.0) % D-Dimer (0-234) ng/mlDDU Sodium (137-145) mmol/L Chloride (98-107) mmol/L BUN 23 H (9-20) mg/dL Glucose 179 H (75-100) mg/dL Lactic Acid (0.7-2.0) mmol/L Ferritin (30.0-300.0) ng/mL AST (5-40) units/L Lactate Dehydrogenase (91-180) units/L C-Reactive Protein (0.00-1.30) mg/dL Total Protein (6.3-8.2) g/dL Albumin (3.9-5) g/dL Coronavirus (PCR) Positive A (Negative) - Imaging and Cardiology Chest x-ray: report reviewed, image reviewed (patchy b/l airspace opacities) Assessment and Plan Cultures: SARS CoV2 PCR: Positive Blood culture: No growth A/P: 53-year-old male with hypertension: #Bilateral pneumonia: Secondary to COVID-19. Inflammatory markers elevated. #Acute hypoxic respiratory failure: On HFNC Recs: -IV/PO Dexamethasone 6 mg daily x 10 days -Ordered Remdesivir for 5 days -prophylactic anticoagulation based on d-dimer per hospital protocol -trend ferritin, LDH, d-dimer, CRP every 2-3 days for risk stratification and to assess disease progression Umang Healy MD, FACP [facility] O: [phone] F: [phone]
[2020-07-09] MEDS ORDERED: REMDESIVIR 100 MG VIAL IV ONE (15:00)
[2020-07-09] MEDS ORDERED: REMDESIVIR 200 MG in SODIUM CHLORIDE 0.9% 250ML 250 ML IV ONE (15:00)
[2020-07-09] MEDS: SODIUM CHLORIDE 0.9% 50 ML IVPB IV SCH ×2 (16:35→22:18)
[2020-07-09] MEDS ORDERED: oxyCODONE 5 MG TAB PO PRN (17:00)
[2020-07-09] MEDS: guaiFENesin/CODEINE 100-10MG ORAL LIQD 5 ML PO PRN (17:23)
[2020-07-09] MEDS: ENOXAPARIN 40 MG/0.4 ML INJ SUB-Q SCH (22:17)
[2020-07-10 05:05] LABS: Basophils % (Auto) 0.3 % (0.0-1.8); Hemoglobin 12.7 gm/dl (11.8-15.2); Lymphocytes # (Auto) 0.8 K/mm3 (1.2-5.4); Lymphocytes % (Auto) 6.7 % (13.4-35.0); Mean Corpuscular HGB Conc 33 % (32-34); Mean Corpuscular Volume 94 fl (84-94); Monocytes # (Auto) 0.4 K/mm3 (0.0-0.8); Monocytes % (Auto) 3.8 % (0.0-7.3); Platelet Count 265 K/mm3 (140-440); Red Blood Count 4.06 M/mm3 (3.65-5.03); Red Cell Distribution Width 12.3 % (13.2-15.2)
[2020-07-10 05:23] LABS: BUN/Creatinine Ratio 21; Blood Urea Nitrogen 19 mg/dL (9-20); Calcium 8.8 mg/dL (8.4-10.2); Hemolysis Index 8
--- NOTE | 2020-07-10 08:03 | Progress Note ---
Assessment and Plan Assessment and plan: 1) Bilateral pneumonia Current Visit: Yes Status: Acute Plan to address problem: Patient started on empiric IV antibiotics. We will await culture results. He however tested positive for COVID-19 few days ago. (2) Acute respiratory failure due to COVID-19 Current Visit: Yes Status: Acute Plan to address problem: Possibly due to the Covid pneumonia. Patient placed on oxygen by nasal cannula and will keep O2 saturation greater or equal to 94%. We will continue on IV antibiotics, placed on IV steroid. Patient also placed on isolation precautions. Infectious disease has been consulted for evaluation. (3) Sepsis Current Visit: Yes Status: Acute Plan to address problem: Secondary to the underlying pneumonia. Patient has been given some IV fluid and IV antibiotics. (4) DVT prophylaxis Current Visit: Yes Status: Acute Plan to address problem: Patient placed on subcutaneous Lovenox. (5) Full code status Current Visit: Yes Status: Acute Plan to address problem: Patient is full code. 07/09/2020; patient is admitted for sepsis secondary to Covid-19 pneumonia versus bacterial pneumonia. Patient is on IV Decadron and ID is consulted for remdesivir treatment. Patient is still short of breath, on 10 L of high flow o xygen. 07/10/2020; patient is on high flow oxygen, hyper etc. secondary to COVID-19 pneumonia versus bacterial pneumonia. Continue with IV antibiotics, remdesivir and Decadron. Pulmonary and ID consult appreciated. Patient is on intermediate dose of Lovenox for COVID-19 pneumonia. History Interval history: Patient was seen and evaluated this morning Patient is on 15 L of high flow oxygen Hospitalist Physical - Physical exam Narrative exam: Not in cardiopulmonary distress. The patient appeared well nourished and normally developed. Vital signs as documented. Head exam is unremarkable. No scleral icterus . Neck is without jugular venous distension, thyromegaly, or carotid bruits. Lungs are clear to auscultation. Cardiac exam reveals regular rate and Rhythm. Abdominal exam reveals normal bowel sounds, nontender, no organomegaly. Extremities are nonedematous and both femoral and pedal pulses are normal. FISHER CRAB: Alert and oriented 3. No focal weakness. - Constitutional Vitals: Temp Pulse Resp BP Pulse Ox 97.8 F 78 33 H 138/79 96 07/09/20 07:55 07/10/20 06:00 07/10/20 06:00 07/10/20 06:00 07/10/20 06:00 General appearance: Present: no acute distress, well-nourished Results - Labs CBC & Chem 7: 07/10/20 04:52 07/10/20 04:52 Labs: Laboratory Last Values WBC 11.3 K/mm3 (4.5-11.0) H 07/10/20 04:52 RBC 4.06 M/mm3 (3.65-5.03) 07/10/20 04:52 Hgb 12.7 gm/dl (11.8-15.2) 07/10/20 04:52 Hct 38.0 % (35.5-45.6) 07/10/20 04:52 MCV 94 fl (84-94) 07/10/20 04:52 MCH 31 pg (28-32) 07/10/20 04:52 MCHC 33 % (32-34) 07/10/20 04:52 RDW 12.3 % (13.2-15.2) L 07/10/20 04:52 Plt Count 265 K/mm3 (140-440) 07/10/20 04:52 Lymph % (Auto) 6.7 % (13.4-35.0) L 07/10/20 04:52 [place] % (Auto) 3.8 % (0.0-7.3) 07/10/20 04:52 Eos % (Auto) 0.0 % (0.0-4.3) 07/10/20 04:52 Baso % (Auto) 0.3 % (0.0-1.8) 07/10/20 04:52 Lymph # (Auto) 0.8 K/mm3 (1.2-5.4) L 07/10/20 04:52 [place] # (Auto) 0.4 K/mm3 (0.0-0.8) 07/10/20 04:52 Eos # (Auto) 0.0 K/mm3 (0.0-0.4) 07/10/20 04:52 Baso # (Auto) 0.0 K/mm3 (0.0-0.1) 07/10/20 04:52 Seg Neutrophils % 89.2 % (40.0-70.0) H 07/10/20 04:52 Seg Neutrophils # 10.1 K/mm3 (1.8-7.7) H 07/10/20 04:52 PT 13.3 Sec. (12.2-14.9) 07/09/20 06:00 INR 1.03 (0.87-1.13) 07/09/20 06:00 D-Dimer 284.74 ng/mlDDU (0-234) H 07/08/20 17:38 Sodium 136 mmol/L (137-145) L 07/10/20 04:52 Potassium 4.7 mmol/L (3.6-5.0) 07/10/20 04:52 Chloride 99.3 mmol/L (98-107) 07/10/20 04:52 Carbon Dioxide 27 mmol/L (22-30) 07/10/20 04:52 Anion Gap 14 mmol/L 07/10/20 04:52 BUN 19 mg/dL (9-20) 07/10/20 04:52 Creatinine 0.9 mg/dL (0.8-1.3) 07/10/20 04:52 Estimated GFR > 60 ml/min 07/10/20 04:52 BUN/Creatinine Ratio 21 % 07/10/20 04:52 Glucose 134 mg/dL (75-100) H 07/10/20 04:52 Lactic Acid 1.00 mmol/L (0.7-2.0) 07/08/20 20:58 Calcium 8.8 mg/dL (8.4-10.2) 07/10/20 04:52 Ferritin > 2000.0 ng/mL (30.0-300.0) H 07/08/20 17:38 Total Bilirubin 0.40 mg/dL (0.1-1.2) 07/08/20 17:38 Direct Bilirubin < 0.2 mg/dL (0-0.2) 07/08/20 17:38 Indirect Bilirubin 0.2 mg/dL 07/08/20 17:38 AST 56 units/L (5-40) H 07/08/20 17:38 ALT 32 units/L (7-56) 07/08/20 17:38 Alkaline Phosphatase 57 units/L (35-129) 07/08/20 17:38 Lactate Dehydrogenase 604 units/L (91-180) H 07/08/20 17:38 C-Reactive Protein 29.00 mg/dL (0.00-1.30) H 07/08/20 17:38 Total Protein 8.4 g/dL (6.3-8.2) H 07/08/20 17:38 Albumin 3.5 g/dL (3.9-5) L 07/08/20 17:38 Albumin/Globulin Ratio 0.7 % 07/08/20 17:38 Procalcitonin 0.22 ng/mL (<0.15) 07/08/20 17:38 Urine Color Jaclyn (Yellow) 07/08/20 18:30 Urine Turbidity Clear (Clear) 07/08/20 18:30 Urine pH 5.0 (5.0-7.0) 07/08/20 18:30 Ur Specific [place] 1.027 (1.003-1.030) 07/08/20 18:30 Urine Protein >500 mg/dL (Negative) 07/08/20 18:30 Urine Glucose (UA) Neg mg/dL (Negative) 07/08/20 18:30 Urine Ketones Neg mg/dL (Negative) 07/08/20 18:30 Urine Blood Neg (Negative) 07/08/20 18:30 Urine Nitrite Neg (Negative) 07/08/20 18:30 Urine Bilirubin Neg (Negative) 07/08/20 18:30 Urine Urobilinogen 4.0 mg/dL (<2.0) 07/08/20 18:30 Ur Leukocyte Esterase Neg (Negative) 07/08/20 18:30 Urine WBC (Auto) 2.0 /HPF (0.0-6.0) 07/08/20 18:30 Urine RBC (Auto) 2.0 /HPF (0.0-6.0) 07/08/20 18:30 U Epithel Cells (Auto) 1.0 /HPF (0-13.0) 07/08/20 18:30 Urine Mucus Few /HPF 07/08/20 18:30 Coronavirus (PCR) Positive (Negative) A 07/09/20 08:38 Microbiology: Microbiology 07/08/20 17:38 Peripheral/Venous Blood Culture - Preliminary NO GROWTH AFTER 24 HOURS 07/08/20 17:38 Peripheral/Venous Blood Culture - Preliminary NO GROWTH AFTER 24 HOURS Qiu/IV: IV Catheter Type [Right Peripheral IV Antecubital] IV Catheter Type [Left Peripheral IV Antecubital] Active Medications - Current Medications Current Medications: Generic Name Dose Route Start Last Admin Trade Name Freq PRN Reason Stop Dose Admin Acetaminophen 650 mg 07/08/20 21:33 Acetaminophen 325 Mg Tab PO Q4H PRN Pain MILD(1-3)/Fever >100.5/MORENO Azithromycin 500 mg 07/10/20 10:00 Azithromycin 250 Mg Tab PO 07/12/20 10:01 QDAY [facility] Dexamethasone 6 mg 07/10/20 10:00 Dexamethasone 4 Mg Tab PO 07/17/20 10:01 DAILY [facility] Enoxaparin Sodium 40 mg 07/10/20 10:00 Enoxaparin 40 Mg/0.4 Ml Inj SUB-Q BID [facility] Protocol Ceftriaxone Sodium 2 gm in 100 mls @ 200 mls/hr 07/09/20 10:00 07/09/20 10:03 Rocephin/Ns 2 Gm/100 Ml IV 200 mls/hr Q24HR BRIANNA Administration Protocol REMDESIVIR 100 mg/ Sodium 250 mls @ 500 mls/hr 07/10/20 21:00 Chloride IV 07/13/20 21:29 Q24HR@2100 [facility] Magnesium Hydroxide 30 ml 07/08/20 21:33 Magnesium Hydroxide (Mom) Oral Liqd Udc PO Q4H PRN Constipation Ondansetron HCl 4 mg 07/08/20 21:33 07/09/20 04:37 Ondansetron 4 Mg/2 Ml Inj IV 4 mg Q8H PRN Administration Nausea And Vomiting Oxycodone HCl 5 mg 07/09/20 17:00 Oxycodone 5 Mg Tab PO Q6H PRN Pain, Moderate (4-6) Pseudoephedrine/Acetam/Chlorphenir 15 ml 07/09/20 12:00 07/09/20 17:23 Guaifenesin/Codeine 100-10mg Oral Liqd 5 Ml PO 15 ml Q4H PRN Administration Cough Sodium Chloride 10 ml 07/08/20 22:00 07/09/20 22:18 Sodium Chloride 0.9% 10 Ml Flush Syringe IV 10 ml BID BRIANNA Administration Sodium Chloride 10 ml 07/08/20 21:33 Sodium Chloride 0.9% 10 Ml Flush Syringe IV PRN PRN LINE FLUSH Sodium Chloride 50 ml 07/10/20 21:00 Sodium Chloride 0.9% 50 Ml Ivpb IV 07/13/20 21:01 Q24HR@2100 BRIANNA
[2020-07-10] MEDS ORDERED: AZITHROMYCIN 250 MG TAB PO SCH (10:00)
[2020-07-10] MEDS: ENOXAPARIN 40 MG/0.4 ML INJ SUB-Q SCH ×2 (10:14→22:32)
[2020-07-10] MEDS: DEXAMETHASONE 4 MG TAB PO SCH (10:14)
--- NOTE | 2020-07-10 11:09 | Progress Note ---
Assessment and Plan Cultures: SARS CoV2 PCR: Positive Blood culture: No growth A/P: 53-year-old male with hypertension: #Bilateral pneumonia: Secondary to COVID-19. Inflammatory markers elevated. #Acute hypoxic respiratory failure: On HFNC Recs: -IV/PO Dexamethasone 6 mg daily x 10 days -continue Remdesivir, D2 -prophylactic anticoagulation based on d-dimer per hospital protocol -trend ferritin, LDH, d-dimer, CRP every 2-3 days for risk stratification and to assess disease progression -antibiotics discontinued Umang Healy MD, FACP [facility] ([facility] O: [phone] F: [phone] Subjective Date of service: 07/10/20 Interval history: No fever. remains on HFNC. Objective - Exam Narrative Exam: Physical Exam (reviewed in chart to minimize risk of transmission) Constitutional: deferred Head, Ears, Nose: deferred Eyes: deferred Neck: deferred Oral: deferred Cardiovascular: deferred Respiratory: deferred GI: deferred Musculoskeletal: deferred Skin: deferred Hem/Lymphatic: deferred Psych: deferred Neurological: deferred - Constitutional Vitals: Vital Signs Temp Pulse Resp BP Pulse Ox 97.8 F 83 29 H 136/85 92 07/09/20 07:55 07/10/20 08:00 07/10/20 08:00 07/10/20 08:00 07/10/20 09:42 - Labs CBC & Chem 7: 07/10/20 04:52 07/10/20 04:52 Labs: Abnormal lab results 07/09/20 07/10/20 07/10/20 Range/Units 08:38 04:52 04:52 WBC 11.3 H (4.5-11.0) K/mm3 RDW 12.3 L (13.2-15.2) % Lymph % (Auto) 6.7 L (13.4-35.0) % Lymph # (Auto) 0.8 L (1.2-5.4) K/mm3 Seg Neutrophils % 89.2 H (40.0-70.0) % Seg Neutrophils # 10.1 H (1.8-7.7) K/mm3 Sodium 136 L (137-145) mmol/L Glucose 134 H (75-100) mg/dL Coronavirus (PCR) Positive A (Negative)
--- NOTE | 2020-07-10 13:12 | Progress Note ---
Assessment and Plan 54 y/o male with acute respiratory failure found to be COVID positive. Prone as tolerated during the day, and sleep prone at night Will given lasix 40mg IV x1 today. Agree with steroids, Remdesivir if candidate Wean FiO2 for sats >88% Please do not give IVF's unless absolutely needed. Subjective Date of service: 07/10/20 Interval history: Now on 15 liters of oxygen. Sats in the mid 90's. I/O are not accurate. Objective Vital Signs - 12hr 07/10/20 07/10/20 07/10/20 01:41 02:00 03:00 Pulse Rate 72 69 Respiratory 32 H 32 H Rate Blood Pressure 131/83 124/78 O2 Sat by Pulse 98 99 96 Oximetry 07/10/20 07/10/20 07/10/20 04:00 05:00 06:00 Pulse Rate 86 84 78 Respiratory 38 H 30 H 33 H Rate Blood Pressure 127/79 137/87 138/79 O2 Sat by Pulse 95 97 96 Oximetry 07/10/20 07/10/20 07/10/20 07:00 08:00 09:42 Pulse Rate 80 83 Respiratory 33 H 29 H Rate Blood Pressure 126/74 136/85 O2 Sat by Pulse 91 95 92 Oximetry CBC and BMP: 07/10/20 04:52 07/10/20 04:52 ABG, PT/INR, D-dimer: PT/INR, D-dimer PT 13.3 Sec. (12.2-14.9) 07/09/20 06:00 INR 1.03 (0.87-1.13) 07/09/20 06:00 D-Dimer 284.74 ng/mlDDU (0-234) H 07/08/20 17:38 Abnormal lab findings: Abnormal Labs 07/08/20 07/08/20 07/08/20 17:38 17:38 17:38 WBC Hgb 16.1 H Hct 47.8 H MCV 95 H RDW 12.4 L Lymph % (Auto) 12.0 L Lymph # (Auto) 1.0 L Seg Neutrophils % 83.6 H Seg Neutrophils # D-Dimer 284.74 H Sodium Chloride BUN Glucose Lactic Acid 2.40 H* Ferritin AST Lactate Dehydrogenase C-Reactive Protein Total Protein Albumin Coronavirus (PCR) 07/08/20 07/08/20 07/08/20 17:38 17:38 17:38 WBC Hgb Hct MCV RDW Lymph % (Auto) Lymph # (Auto) Seg Neutrophils % Seg Neutrophils # D-Dimer Sodium 133 L Chloride 92.8 L BUN 22 H Glucose 131 H 128 H Lactic Acid Ferritin > 2000.0 H AST 56 H Lactate Dehydrogenase 604 H C-Reactive Protein 29.00 H Total Protein 8.4 H Albumin 3.5 L Coronavirus (PCR) 07/09/20 07/09/20 07/09/20 06:00 06:00 08:38 WBC Hgb Hct MCV RDW 12.3 L Lymph % (Auto) 5.4 L Lymph # (Auto) 0.4 L Seg Neutrophils % 89.4 H Seg Neutrophils # D-Dimer Sodium Chloride BUN 23 H Glucose 179 H Lactic Acid Ferritin AST Lactate Dehydrogenase C-Reactive Protein Total Protein Albumin Coronavirus (PCR) Positive A 07/10/20 07/10/20 04:52 04:52 WBC 11.3 H Hgb Hct MCV RDW 12.3 L Lymph % (Auto) 6.7 L Lymph # (Auto) 0.8 L Seg Neutrophils % 89.2 H Seg Neutrophils # 10.1 H D-Dimer Sodium 136 L Chloride BUN Glucose 134 H Lactic Acid Ferritin AST Lactate Dehydrogenase C-Reactive Protein Total Protein Albumin Coronavirus (PCR)
[2020-07-10] MEDS ORDERED: FUROSEMIDE 40 MG/4 ML INJ IV SCH (14:00)
[2020-07-10 16:04] LABS: C-Reactive Protein 8.3 mg/dL (0.00-1.30)
[2020-07-10] MEDS: cefTRIAXone/NS 2 GM/100 ML 2 GM/100 ML BAG IV SCH (20:02)
[2020-07-10] MEDS: SODIUM CHLORIDE 0.9% 50 ML IVPB IV SCH (22:32)
[2020-07-10] MEDS: REMDESIVIR 100 MG in SODIUM CHLORIDE 0.9% 250ML 250 ML IV SCH (22:32)
[2020-07-11 05:28] LABS: Alanine Aminotransferase 26 units/L (7-56); Albumin 3.2 g/dL (3.9-5); BUN/Creatinine Ratio 24; Blood Urea Nitrogen 19 mg/dL (9-20); Calcium 8.7 mg/dL (8.4-10.2); Hemolysis Index 1
[2020-07-11 05:54] LABS: Bilirubin,Direct < 0.2 mg/dL (0-0.2)
[2020-07-11] MEDS: ENOXAPARIN 40 MG/0.4 ML INJ SUB-Q SCH ×2 (12:01→21:40)
[2020-07-11] MEDS: DEXAMETHASONE 4 MG TAB PO SCH (12:01)
--- NOTE | 2020-07-11 12:46 | Progress Note ---
Assessment and Plan 54 y/o male with acute respiratory failure found to be COVID positive. Prone as tolerated during the day, and sleep prone at night Will give lasix 40mg IV x1 again today. I/O not documented since 07/09 Agree with steroids, Remdesivir has been started Wean FiO2 for sats >88% Please do not give IVF's unless absolutely needed. Subjective Date of service: 07/11/20 Interval history: Tolerated lasix yesterday. oxygen requirement decreasing. Objective Vital Signs - 12hr 07/11/20 07/11/20 07/11/20 01:00 02:00 03:00 Pulse Rate 64 69 71 Respiratory 25 H 25 H 21 Rate Blood Pressure 156/82 139/86 149/88 O2 Sat by Pulse 95 97 97 Oximetry 07/11/20 07/11/20 07/11/20 04:00 05:01 08:10 Pulse Rate 61 62 Respiratory 22 24 Rate Blood Pressure 159/87 151/89 O2 Sat by Pulse 97 94 97 Oximetry 07/11/20 11:36 Pulse Rate Respiratory Rate Blood Pressure O2 Sat by Pulse 95 Oximetry CBC and BMP: 07/10/20 04:52 07/11/20 04:36 ABG, PT/INR, D-dimer: PT/INR, D-dimer PT 13.3 Sec. (12.2-14.9) 07/09/20 06:00 INR 1.03 (0.87-1.13) 07/09/20 06:00 D-Dimer 371.35 ng/mlDDU (0-234) H 07/10/20 14:59 Abnormal lab findings: Abnormal Labs 07/08/20 07/08/20 07/08/20 17:38 17:38 17:38 WBC Hgb 16.1 H Hct 47.8 H MCV 95 H RDW 12.4 L Lymph % (Auto) 12.0 L Lymph # (Auto) 1.0 L Seg Neutrophils % 83.6 H Seg Neutrophils # D-Dimer 284.74 H Sodium Potassium Chloride BUN Glucose Lactic Acid 2.40 H* Ferritin AST Lactate Dehydrogenase C-Reactive Protein Total Protein Albumin Coronavirus (PCR) 07/08/20 07/08/20 07/08/20 17:38 17:38 17:38 WBC Hgb Hct MCV RDW Lymph % (Auto) Lymph # (Auto) Seg Neutrophils % Seg Neutrophils # D-Dimer Sodium 133 L Potassium Chloride 92.8 L BUN 22 H Glucose 131 H 128 H Lactic Acid Ferritin > 2000.0 H AST 56 H Lactate Dehydrogenase 604 H C-Reactive Protein 29.00 H Total Protein 8.4 H Albumin 3.5 L Coronavirus (PCR) 07/09/20 07/09/20 07/09/20 06:00 06:00 08:38 WBC Hgb Hct MCV RDW 12.3 L Lymph % (Auto) 5.4 L Lymph # (Auto) 0.4 L Seg Neutrophils % 89.4 H Seg Neutrophils # D-Dimer Sodium Potassium Chloride BUN 23 H Glucose 179 H Lactic Acid Ferritin AST Lactate Dehydrogenase C-Reactive Protein Total Protein Albumin Coronavirus (PCR) Positive A 07/10/20 07/10/20 07/10/20 04:52 04:52 14:59 WBC 11.3 H Hgb Hct MCV RDW 12.3 L Lymph % (Auto) 6.7 L Lymph # (Auto) 0.8 L Seg Neutrophils % 89.2 H Seg Neutrophils # 10.1 H D-Dimer 371.35 H Sodium 136 L Potassium Chloride BUN Glucose 134 H Lactic Acid Ferritin AST Lactate Dehydrogenase C-Reactive Protein Total Protein Albumin Coronavirus (PCR) 07/10/20 07/10/20 07/11/20 14:59 14:59 04:36 WBC Hgb Hct MCV RDW Lymph % (Auto) Lymph # (Auto) Seg Neutrophils % Seg Neutrophils # D-Dimer Sodium 136 L Potassium 5.4 H Chloride BUN Glucose 140 H Lactic Acid Ferritin 2974.0 H AST Lactate Dehydrogenase 440 H C-Reactive Protein 8.30 H Total Protein Albumin 3.2 L Coronavirus (PCR)
[2020-07-11] MEDS ORDERED: FUROSEMIDE 40 MG/4 ML INJ IV SCH (13:00)
--- NOTE | 2020-07-11 14:23 | Progress Note ---
Assessment and Plan Cultures: SARS CoV2 PCR: Positive Blood culture: No growth A/P: 53-year-old male with hypertension: #Bilateral pneumonia: Secondary to COVID-19. Inflammatory markers elevated. #Acute hypoxic respiratory failure: On HFNC Recs: -IV/PO Dexamethasone 6 mg daily x 10 days -continue Remdesivir, D3 -prophylactic anticoagulation based on d-dimer per hospital protocol -trend ferritin, LDH, d-dimer, CRP every 2-3 days for risk stratification and to assess disease progression Umang Healy MD, FACP [facility] O: [phone] F: [phone] Subjective Date of service: 07/11/20 Interval history: No fever. Remains on HFNC. Objective - Exam Narrative Exam: Physical Exam (reviewed in chart to minimize risk of transmission) Constitutional: deferred Head, Ears, Nose: deferred Eyes: deferred Neck: deferred Oral: deferred Cardiovascular: deferred Respiratory: deferred GI: deferred Musculoskeletal: deferred Skin: deferred Hem/Lymphatic: deferred Psych: deferred Neurological: deferred - Constitutional Vitals: Vital Signs Temp Pulse Resp BP Pulse Ox 100.3 F H 78 30 H 153/80 97 07/10/20 19:53 07/11/20 13:01 07/11/20 13:01 07/11/20 13:01 07/11/20 13:01 Temperature -Last 24 Hours Temperature 100.3 F - Labs CBC & Chem 7: 07/10/20 04:52 07/11/20 04:36 Labs: Abnormal lab results 07/10/20 07/10/20 07/10/20 Range/Units 14:59 14:59 14:59 D-Dimer 371.35 H (0-234) ng/mlDDU Sodium (137-145) mmol/L Potassium (3.6-5.0) mmol/L Glucose (75-100) mg/dL Ferritin 2974.0 H (30.0-300.0) ng/mL Lactate Dehydrogenase 440 H (91-180) units/L C-Reactive Protein 8.30 H (0.00-1.30) mg/dL Albumin (3.9-5) g/dL 07/11/20 Range/Units 04:36 D-Dimer (0-234) ng/mlDDU Sodium 136 L (137-145) mmol/L Potassium 5.4 H (3.6-5.0) mmol/L Glucose 140 H (75-100) mg/dL Ferritin (30.0-300.0) ng/mL Lactate Dehydrogenase (91-180) units/L C-Reactive Protein (0.00-1.30) mg/dL Albumin 3.2 L (3.9-5) g/dL
--- NOTE | 2020-07-11 14:43 | Progress Note ---
Assessment and Plan Assessment and plan: 54-year-old male with known history of hypertension who tested Covid positive about 3 days ago presenting to the emergency room today complaining of shortness of breath and generalized weakness over the past few days. Shortness of breath is said to have gotten worse today and therefore decided to report to the emergency room. Upon arrival in the emergency room he had a blood pressure of 96/50, temperature of 1 103 F, tachypneic with an O2 saturation of 76% on room air. He was subsequently placed on oxygen 3 L and oxygen saturation improved to about 100%. Work-up in the emergency room today shows bilateral pneumonia on chest x-ray. Lactic acid also elevated at 2.40 Patient was placed on IV fluid per sepsis protocol, IV antibiotics and steroid. He has been admitted with pneumonia possibly secondary to COVID-19. 1) Bilateral pneumonia Current Visit: Yes Status: Acute Plan to address problem: Patient started on empiric IV antibiotics. We will await culture results. He however tested positive for COVID-19 few days ago. (2) Acute respiratory failure due to COVID-19 Current Visit: Yes Status: Acute Plan to address problem: Possibly due to the Covid pneumonia. Patient placed on oxygen by nasal cannula and will keep O2 saturation greater or equal to 94%. We will continue on IV antibiotics, placed on IV steroid. Patient also placed on isolation precautions. Infectious disease has been consulted for evaluation. (3) Sepsis Current Visit: Yes Status: Acute Plan to address problem: Secondary to the underlying pneumonia. Patient has been given some IV fluid and IV antibiotics. (4) DVT prophylaxis Current Visit: Yes Status: Acute Plan to address problem: Patient placed on subcutaneous Lovenox. (5) Full code status Current Visit: Yes Status: Acute Plan to address problem: Patient is full code. 07/09/2020; patient is admitted for sepsis secondary to Covid-19 pneumonia versus bacterial pneumonia. Patient is on IV Decadron and ID is consulted for remdesivir treatment. Patient is still short of breath, on 10 L of high flow oxygen. 07/10/2020; patient is on high flow oxygen, hyper etc. secondary to COVID-19 pneumonia versus bacterial pneumonia. Continue with IV antibiotics, remdesivir and Decadron. Pulmonary and ID consult appreciated. Patient is on intermediate dose of Lovenox for COVID-19 pneumonia. 12/23: Continue to wean high flow as tolerated. Continue COVID-19 protocol per [facility] policy. ID and pulmonary input noted. History Interval history: Patient seen and examined resting comfortably still in mild distress on high flow. Hospitalist Physical - Physical exam Narrative exam: Still with mild respiratory distress on high flow The patient appeared well nourished and normally developed. Vital signs as documented. Head exam is unremarkable. No scleral icterus . Neck is without jugular venous distension, thyromegaly, or carotid bruits. Lungs are clear to auscultation. Cardiac exam reveals regular rate and Rhythm. Abdominal exam reveals normal bowel sounds, nontender, no organomegaly. Extremities are nonedematous and both femoral and pedal pulses are normal. 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 No focal weakness. - Constitutional Vitals: Temp Pulse Resp BP Pulse Ox 100.3 F H 78 30 H 153/80 97 07/10/20 19:53 07/11/20 13:01 07/11/20 13:01 07/11/20 13:01 07/11/20 13:01 General appearance: Present: no acute distress, well-nourished Results - Labs CBC & Chem 7: 07/10/20 04:52 07/11/20 04:36 Labs: Laboratory Last Values WBC 11.3 K/mm3 (4.5-11.0) H 07/10/20 04:52 RBC 4.06 M/mm3 (3.65-5.03) 07/10/20 04:52 Hgb 12.7 gm/dl (11.8-15.2) 07/10/20 04:52 Hct 38.0 % (35.5-45.6) 07/10/20 04:52 MCV 94 fl (84-94) 07/10/20 04:52 MCH 31 pg (28-32) 07/10/20 04:52 MCHC 33 % (32-34) 07/10/20 04:52 RDW 12.3 % (13.2-15.2) L 07/10/20 04:52 Plt Count 265 K/mm3 (140-440) 07/10/20 04:52 Lymph % (Auto) 6.7 % (13.4-35.0) L 07/10/20 04:52 [place] % (Auto) 3.8 % (0.0-7.3) 07/10/20 04:52 Eos % (Auto) 0.0 % (0.0-4.3) 07/10/20 04:52 Baso % (Auto) 0.3 % (0.0-1.8) 07/10/20 04:52 Lymph # (Auto) 0.8 K/mm3 (1.2-5.4) L 07/10/20 04:52 [place] # (Auto) 0.4 K/mm3 (0.0-0.8) 07/10/20 04:52 Eos # (Auto) 0.0 K/mm3 (0.0-0.4) 07/10/20 04:52 Baso # (Auto) 0.0 K/mm3 (0.0-0.1) 07/10/20 04:52 Seg Neutrophils % 89.2 % (40.0-70.0) H 07/10/20 04:52 Seg Neutrophils # 10.1 K/mm3 (1.8-7.7) H 07/10/20 04:52 PT 13.3 Sec. (12.2-14.9) 07/09/20 06:00 INR 1.03 (0.87-1.13) 07/09/20 06:00 D-Dimer 371.35 ng/mlDDU (0-234) H 07/10/20 14:59 Sodium 136 mmol/L (137-145) L 07/11/20 04:36 Potassium 5.4 mmol/L (3.6-5.0) H 07/11/20 04:36 Chloride 99.0 mmol/L (98-107) 07/11/20 04:36 Carbon Dioxide 27 mmol/L (22-30) 07/11/20 04:36 Anion Gap 15 mmol/L 07/11/20 04:36 BUN 19 mg/dL (9-20) 07/11/20 04:36 Creatinine 0.8 mg/dL (0.8-1.3) 07/11/20 04:36 Estimated GFR > 60 ml/min 07/11/20 04:36 BUN/Creatinine Ratio 24 % 07/11/20 04:36 Glucose 140 mg/dL (75-100) H 07/11/20 04:36 Lactic Acid 1.00 mmol/L (0.7-2.0) 07/08/20 20:58 Calcium 8.7 mg/dL (8.4-10.2) 07/11/20 04:36 Ferritin 2974.0 ng/mL (30.0-300.0) H 07/10/20 14:59 Total Bilirubin 0.20 mg/dL (0.1-1.2) 07/11/20 04:36 Direct Bilirubin < 0.2 mg/dL (0-0.2) 07/11/20 04:36 Indirect Bilirubin 0.0 mg/dL 07/11/20 04:36 AST 33 units/L (5-40) 07/11/20 04:36 ALT 26 units/L (7-56) 07/11/20 04:36 Alkaline Phosphatase 51 units/L (35-129) 07/11/20 04:36 Lactate Dehydrogenase 440 units/L (91-180) H 07/10/20 14:59 C-Reactive Protein 8.30 mg/dL (0.00-1.30) H 07/10/20 14:59 Total Protein 6.3 g/dL (6.3-8.2) D 07/11/20 04:36 Albumin 3.2 g/dL (3.9-5) L 07/11/20 04:36 Albumin/Globulin Ratio 1.0 % 07/11/20 04:36 Procalcitonin 0.22 ng/mL (<0.15) 07/08/20 17:38 Urine Color Jaclyn (Yellow) 07/08/20 18:30 Urine Turbidity Clear (Clear) 07/08/20 18:30 Urine pH 5.0 (5.0-7.0) 07/08/20 18:30 Ur Specific [place] 1.027 (1.003-1.030) 07/08/20 18:30 Urine Protein >500 mg/dL (Negative) 07/08/20 18:30 Urine Glucose (UA) Neg mg/dL (Negative) 07/08/20 18:30 Urine Ketones Neg mg/dL (Negative) 07/08/20 18:30 Urine Blood Neg (Negative) 07/08/20 18:30 Urine Nitrite Neg (Negative) 07/08/20 18:30 Urine Bilirubin Neg (Negative) 07/08/20 18:30 Urine Urobilinogen 4.0 mg/dL (<2.0) 07/08/20 18:30 Ur Leukocyte Esterase Neg (Negative) 07/08/20 18:30 Urine WBC (Auto) 2.0 /HPF (0.0-6.0) 07/08/20 18:30 Urine RBC (Auto) 2.0 /HPF (0.0-6.0) 07/08/20 18:30 U Epithel Cells (Auto) 1.0 /HPF (0-13.0) 07/08/20 18:30 Urine Mucus Few /HPF 07/08/20 18:30 Coronavirus (PCR) Positive (Negative) A 07/09/20 08:38 Microbiology: Microbiology 07/08/20 17:38 Peripheral/Venous Blood Culture - Preliminary NO GROWTH AFTER 48 HOURS 07/08/20 17:38 Peripheral/Venous Blood Culture - Preliminary NO GROWTH AFTER 48 HOURS Qiu/IV: IV Catheter Type [Right Peripheral IV Antecubital] IV Catheter Type [Left Peripheral IV Antecubital] Active Medications - Current Medications Current Medications: Generic Name Dose Route Start Last Admin Trade Name Freq PRN Reason Stop Dose Admin Acetaminophen 650 mg 07/08/20 21:33 Acetaminophen 325 Mg Tab PO Q4H PRN Pain MILD(1-3)/Fever >100.5/MORENO Dexamethasone 6 mg 07/10/20 10:00 07/11/20 12:01 Dexamethasone 4 Mg Tab PO 07/17/20 10:01 6 mg DAILY BRIANNA Administration Enoxaparin Sodium 40 mg 07/10/20 10:00 07/11/20 12:01 Enoxaparin 40 Mg/0.4 Ml Inj SUB-Q 40 mg BID BRIANNA Administration Protocol Furosemide 40 mg 07/11/20 13:00 Furosemide 40 Mg/4 Ml Inj IV 07/11/20 16:00 ONCE BRIANNA REMDESIVIR 100 mg/ Sodium 250 mls @ 500 mls/hr 07/10/20 21:00 07/10/20 22:32 Chloride IV 07/13/20 21:29 500 mls/hr Q24HR@2100 BRIANNA Administration Magnesium Hydroxide 30 ml 07/08/20 21:33 Magnesium Hydroxide (Mom) Oral Liqd Udc PO Q4H PRN Constipation Ondansetron HCl 4 mg 07/08/20 21:33 07/09/20 04:37 Ondansetron 4 Mg/2 Ml Inj IV 4 mg Q8H PRN Administration Nausea And Vomiting Oxycodone HCl 5 mg 07/09/20 17:00 07/10/20 17:13 Oxycodone 5 Mg Tab PO 5 mg Q6H PRN Administration Pain, Moderate (4-6) Pseudoephedrine/Acetam/Chlorphenir 15 ml 07/09/20 12:00 07/09/20 17:23 Guaifenesin/Codeine 100-10mg Oral Liqd 5 Ml PO 15 ml Q4H PRN Administration Cough Sodium Chloride 10 ml 07/08/20 22:00 07/11/20 12:02 Sodium Chloride 0.9% 10 Ml Flush Syringe IV 10 ml BID BRIANNA Administration Sodium Chloride 10 ml 07/08/20 21:33 Sodium Chloride 0.9% 10 Ml Flush Syringe IV PRN PRN LINE FLUSH Sodium Chloride 50 ml 07/10/20 21:00 07/10/20 22:32 Sodium Chloride 0.9% 50 Ml Ivpb IV 07/13/20 21:01 50 ml Q24HR@2100 BRIANNA Administration
[2020-07-11] MEDS: ACETAMINOPHEN 325 MG TAB PO PRN (18:40)
[2020-07-11] MEDS: SODIUM CHLORIDE 0.9% 50 ML IVPB IV SCH (21:40)
[2020-07-11] MEDS: REMDESIVIR 100 MG in SODIUM CHLORIDE 0.9% 250ML 250 ML IV SCH (21:40)
[2020-07-12 08:04] LABS: C-Reactive Protein 11.1 mg/dL (0.00-1.30)
--- NOTE | 2020-07-12 09:21 | Progress Note ---
Assessment and Plan Assessment and plan: 54-year-old male with known history of hypertension who tested Covid positive about 3 days ago presenting to the emergency room today complaining of shortness of breath and generalized weakness over the past few days. Shortness of breath is said to have gotten worse today and therefore decided to report to the emergency room. Upon arrival in the emergency room he had a blood pressure of 96/50, temperature of 1 103 F, tachypneic with an O2 saturation of 76% on room air. He was subsequently placed on oxygen 3 L and oxygen saturation improved to about 100%. Work-up in the emergency room today shows bilateral pneumonia on chest x-ray. Lactic acid also elevated at 2.40 Patient was placed on IV fluid per sepsis protocol, IV antibiotics and steroid. He has been admitted with pneumonia possibly secondary to COVID-19. 1) Bilateral pneumonia Current Visit: Yes Status: Acute Plan to address problem: Patient started on empiric IV antibiotics. We will await culture results. He however tested positive for COVID-19 few days ago. (2) Acute respiratory failure due to COVID-19 Current Visit: Yes Status: Acute Plan to address problem: Possibly due to the Covid pneumonia. Patient placed on oxygen by nasal cannula and will keep O2 saturation greater or equal to 94%. We will continue on IV antibiotics, placed on IV steroid. Patient also placed on isolation precautions. Infectious disease has been consulted for evaluation. (3) Sepsis Current Visit: Yes Status: Acute Plan to address problem: Secondary to the underlying pneumonia. Patient has been given some IV fluid and IV antibiotics. (4) DVT prophylaxis Current Visit: Yes Status: Acute Plan to address problem: Patient placed on subcutaneous Lovenox. (5) Full code status Current Visit: Yes Status: Acute Plan to address problem: Patient is full code. 07/09/2020; patient is admitted for sepsis secondary to Covid-19 pneumonia versus bacterial pneumonia. Patient is on IV Decadron and ID is consulted for remdesivir treatment. Patient is still short of breath, on 10 L of high flow oxygen. 07/10/2020; patient is on high flow oxygen, hyper etc. secondary to COVID-19 pneumonia versus bacterial pneumonia. Continue with IV antibiotics, remdesivir and Decadron. Pulmonary and ID consult appreciated. Patient is on intermediate dose of Lovenox for COVID-19 pneumonia. 12/23: Continue to wean high flow as tolerated. Continue COVID-19 protocol per [facility] policy. ID and pulmonary input noted. 07/12: Continue current management wean as tolerated. Continues on remdesivir and Decadron. We will give a dose of Lasix today. Continue to monitor I's and O's. Patient wants cough suppressant discussed the effectiveness of good cough to help keep the airways open. Trial of Robitussin for comfort measures. Patient remains critically ill. We will also check a serum muscularity we will add some vitamins supplementation. The high probability of a clinically significant, sudden or life threatening deterioration of the [pulmonary] system(s) required my full and direct attention, intervention and personal management. The aggregate critical care time was [35] minutes. This time is in addition to time spent performing repor rm procedures but includes the following: [x] Data Review and interpretation [x] Patient assessment and monitoring of vital signs [x] Documentation [x] Medication orders and management History Interval history: Patient seen and examined resting comfortably still in mild distress on high flow. Reports that he slept prone. Hospitalist Physical - Physical exam Narrative exam: Still with mild respiratory distress on high flow The patient appeared well nourished and normally developed. Vital signs as documented. Head exam is unremarkable. No scleral icterus . Neck is without jugular venous distension, thyromegaly, or carotid bruits. Lungs are clear to auscultation. Cardiac exam reveals regular rate and Rhythm. Abdominal exam reveals normal bowel sounds, nontender, no organomegaly. Extremities are nonedematous and both femoral and pedal pulses are normal. 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 No focal weakness. - Constitutional Vitals: Temp Pulse Resp BP Pulse Ox 97.7 F 81 18 165/94 96 07/12/20 05:44 07/12/20 05:44 07/12/20 05:44 07/12/20 05:44 07/12/20 08:19 General appearance: Present: no acute distress, well-nourished Results - Labs CBC & Chem 7: 07/10/20 04:52 07/11/20 04:36 Labs: Laboratory Last Values WBC 11.3 K/mm3 (4.5-11.0) H 07/10/20 04:52 RBC 4.06 M/mm3 (3.65-5.03) 07/10/20 04:52 Hgb 12.7 gm/dl (11.8-15.2) 07/10/20 04:52 Hct 38.0 % (35.5-45.6) 07/10/20 04:52 MCV 94 fl (84-94) 07/10/20 04:52 MCH 31 pg (28-32) 07/10/20 04:52 MCHC 33 % (32-34) 07/10/20 04:52 RDW 12.3 % (13.2-15.2) L 07/10/20 04:52 Plt Count 265 K/mm3 (140-440) 07/10/20 04:52 Lymph % (Auto) 6.7 % (13.4-35.0) L 07/10/20 04:52 [place] % (Auto) 3.8 % (0.0-7.3) 07/10/20 04:52 Eos % (Auto) 0.0 % (0.0-4.3) 07/10/20 04:52 Baso % (Auto) 0.3 % (0.0-1.8) 07/10/20 04:52 Lymph # (Auto) 0.8 K/mm3 (1.2-5.4) L 07/10/20 04:52 [place] # (Auto) 0.4 K/mm3 (0.0-0.8) 07/10/20 04:52 Eos # (Auto) 0.0 K/mm3 (0.0-0.4) 07/10/20 04:52 Baso # (Auto) 0.0 K/mm3 (0.0-0.1) 07/10/20 04:52 Seg Neutrophils % 89.2 % (40.0-70.0) H 07/10/20 04:52 Seg Neutrophils # 10.1 K/mm3 (1.8-7.7) H 07/10/20 04:52 PT 13.3 Sec. (12.2-14.9) 07/09/20 06:00 INR 1.03 (0.87-1.13) 07/09/20 06:00 D-Dimer 4581.64 ng/mlDDU (0-234) H 07/12/20 07:19 Sodium 136 mmol/L (137-145) L 07/11/20 04:36 Potassium 5.4 mmol/L (3.6-5.0) H 07/11/20 04:36 Chloride 99.0 mmol/L (98-107) 07/11/20 04:36 Carbon Dioxide 27 mmol/L (22-30) 07/11/20 04:36 Anion Gap 15 mmol/L 07/11/20 04:36 BUN 19 mg/dL (9-20) 07/11/20 04:36 Creatinine 0.8 mg/dL (0.8-1.3) 07/11/20 04:36 Estimated GFR > 60 ml/min 07/11/20 04:36 BUN/Creatinine Ratio 24 % 07/11/20 04:36 Glucose 140 mg/dL (75-100) H 07/11/20 04:36 Lactic Acid 1.00 mmol/L (0.7-2.0) 07/08/20 20:58 Calcium 8.7 mg/dL (8.4-10.2) 07/11/20 04:36 Ferritin 2974.0 ng/mL (30.0-300.0) H 07/10/20 14:59 Total Bilirubin 0.20 mg/dL (0.1-1.2) 07/11/20 04:36 Direct Bilirubin < 0.2 mg/dL (0-0.2) 07/11/20 04:36 Indirect Bilirubin 0.0 mg/dL 07/11/20 04:36 AST 33 units/L (5-40) 07/11/20 04:36 ALT 26 units/L (7-56) 07/11/20 04:36 Alkaline Phosphatase 51 units/L (35-129) 07/11/20 04:36 Lactate Dehydrogenase 406 units/L (91-180) H 07/12/20 07:19 C-Reactive Protein 11.10 mg/dL (0.00-1.30) H 07/12/20 07:19 Total Protein 6.3 g/dL (6.3-8.2) D 07/11/20 04:36 Albumin 3.2 g/dL (3.9-5) L 07/11/20 04:36 Albumin/Globulin Ratio 1.0 % 07/11/20 04:36 Procalcitonin 0.22 ng/mL (<0.15) 07/08/20 17:38 Urine Color Jaclyn (Yellow) 07/08/20 18:30 Urine Turbidity Clear (Clear) 07/08/20 18:30 Urine pH 5.0 (5.0-7.0) 07/08/20 18:30 Ur Specific [place] 1.027 (1.003-1.030) 07/08/20 18:30 Urine Protein >500 mg/dL (Negative) 07/08/20 18:30 Urine Glucose (UA) Neg mg/dL (Negative) 07/08/20 18:30 Urine Ketones Neg mg/dL (Negative) 07/08/20 18:30 Urine Blood Neg (Negative) 07/08/20 18:30 Urine Nitrite Neg (Negative) 07/08/20 18:30 Urine Bilirubin Neg (Negative) 07/08/20 18:30 Urine Urobilinogen 4.0 mg/dL (<2.0) 07/08/20 18:30 Ur Leukocyte Esterase Neg (Negative) 07/08/20 18:30 Urine WBC (Auto) 2.0 /HPF (0.0-6.0) 07/08/20 18:30 Urine RBC (Auto) 2.0 /HPF (0.0-6.0) 07/08/20 18:30 U Epithel Cells (Auto) 1.0 /HPF (0-13.0) 07/08/20 18:30 Urine Mucus Few /HPF 07/08/20 18:30 Coronavirus (PCR) Positive (Negative) A 07/09/20 08:38 Microbiology: Microbiology 07/08/20 17:38 Peripheral/Venous Blood Culture - Preliminary NO GROWTH AFTER 72 HOURS 07/08/20 17:38 Peripheral/Venous Blood Culture - Preliminary NO GROWTH AFTER 72 HOURS Qiu/IV: Voiding Method Urinal IV Catheter Type [Right Peripheral IV Antecubital] IV Catheter Type [Left Peripheral IV Antecubital] Active Medications - Current Medications Current Medications: Generic Name Dose Route Start Last Admin Trade Name Freq PRN Reason Stop Dose Admin Acetaminophen 650 mg 07/08/20 21:33 07/11/20 18:40 Acetaminophen 325 Mg Tab PO 650 mg Q4H PRN Administration Pain MILD(1-3)/Fever >100.5/MORENO Dexamethasone 6 mg 07/10/20 10:00 07/11/20 12:01 Dexamethasone 4 Mg Tab PO 07/17/20 10:01 6 mg DAILY BRIANNA Administration Enoxaparin Sodium 40 mg 07/10/20 10:00 07/11/20 21:40 Enoxaparin 40 Mg/0.4 Ml Inj SUB-Q 40 mg BID BRIANNA Administration Protocol REMDESIVIR 100 mg/ Sodium 250 mls @ 500 mls/hr 07/10/20 21:00 07/11/20 21:40 Chloride IV 07/13/20 21:29 500 mls/hr Q24HR@2100 BRIANNA Administration Magnesium Hydroxide 30 ml 07/08/20 21:33 Magnesium Hydroxide (Mom) Oral Liqd Udc PO Q4H PRN Constipation Ondansetron HCl 4 mg 07/08/20 21:33 07/09/20 04:37 Ondansetron 4 Mg/2 Ml Inj IV 4 mg Q8H PRN Administration Nausea And Vomiting Oxycodone HCl 5 mg 07/09/20 17:00 07/10/20 17:13 Oxycodone 5 Mg Tab PO 5 mg Q6H PRN Administration Pain, Moderate (4-6) Pseudoephedrine/Acetam/Chlorphenir 15 ml 07/09/20 12:00 07/09/20 17:23 Guaifenesin/Codeine 100-10mg Oral Liqd 5 Ml PO 15 ml Q4H PRN Administration Cough Sodium Chloride 10 ml 07/08/20 22:00 07/11/20 21:40 Sodium Chloride 0.9% 10 Ml Flush Syringe IV 10 ml BID BRIANNA Administration Sodium Chloride 10 ml 07/08/20 21:33 Sodium Chloride 0.9% 10 Ml Flush Syringe IV PRN PRN LINE FLUSH Sodium Chloride 50 ml 07/10/20 21:00 07/11/20 21:40 Sodium Chloride 0.9% 50 Ml Ivpb IV 07/13/20 21:01 50 ml Q24HR@2100 BRIANNA Administration
[2020-07-12] MEDS ORDERED: FUROSEMIDE 40 MG/4 ML INJ IV NR (10:15)
[2020-07-12] MEDS: DEXAMETHASONE 4 MG TAB PO SCH (11:32)
[2020-07-12] MEDS: ZINC SULFATE 220 MG CAP PO SCH (11:32)
[2020-07-12] MEDS: ASCORBIC ACID 500 MG TAB PO SCH ×2 (11:33→21:39)
[2020-07-12] MEDS: CHOLECALCIFEROL (VIT D3) 5,000 UNIT TAB PO SCH (11:33)
[2020-07-12] MEDS: ENOXAPARIN 40 MG/0.4 ML INJ SUB-Q SCH ×2 (11:33→21:37)
--- NOTE | 2020-07-12 11:37 | Progress Note ---
Assessment and Plan 54 y/o male with acute respiratory failure found to be COVID positive. Prone as tolerated during the day, and sleep prone at night. Please document if patient is not or is doing this. Will give lasix 40mg IV x1 again today. I/O documented now, not sure how accurate this is. Agree with steroids, Remdesivir has been started Wean FiO2 for sats >88% Please do not give IVF's unless absolutely needed. Please repeat chemistry to follow up K and renal function. Subjective Date of service: 07/12/20 Interval history: Oxygen requirement increased yesterday. Patient encouraged to prone but based on documentation has not been doing so. I/O I am not sure how accurate these are. Objective Vital Signs - 12hr 07/12/20 07/12/20 07/12/20 03:02 05:44 08:19 Temperature 97.7 F Pulse Rate 81 Respiratory 18 Rate Blood Pressure 165/94 O2 Sat by Pulse 94 91 96 Oximetry 07/12/20 10:51 Temperature 101.5 F H Pulse Rate 102 H Respiratory 24 Rate Blood Pressure 139/84 O2 Sat by Pulse 91 Oximetry CBC and BMP: 07/10/20 04:52 07/11/20 04:36 ABG, PT/INR, D-dimer: PT/INR, D-dimer PT 13.3 Sec. (12.2-14.9) 07/09/20 06:00 INR 1.03 (0.87-1.13) 07/09/20 06:00 D-Dimer 4581.64 ng/mlDDU (0-234) H 07/12/20 07:19 Abnormal lab findings: Abnormal Labs 07/08/20 07/08/20 07/08/20 17:38 17:38 17:38 WBC Hgb 16.1 H Hct 47.8 H MCV 95 H RDW 12.4 L Lymph % (Auto) 12.0 L Lymph # (Auto) 1.0 L Seg Neutrophils % 83.6 H Seg Neutrophils # D-Dimer 284.74 H Sodium Potassium Chloride BUN Glucose Lactic Acid 2.40 H* Ferritin AST Lactate Dehydrogenase C-Reactive Protein Total Protein Albumin Coronavirus (PCR) 07/08/20 07/08/20 07/08/20 17:38 17:38 17:38 WBC Hgb Hct MCV RDW Lymph % (Auto) Lymph # (Auto) Seg Neutrophils % Seg Neutrophils # D-Dimer Sodium 133 L Potassium Chloride 92.8 L BUN 22 H Glucose 131 H 128 H Lactic Acid Ferritin > 2000.0 H AST 56 H Lactate Dehydrogenase 604 H C-Reactive Protein 29.00 H Total Protein 8.4 H Albumin 3.5 L Coronavirus (PCR) 07/09/20 07/09/20 07/09/20 06:00 06:00 08:38 WBC Hgb Hct MCV RDW 12.3 L Lymph % (Auto) 5.4 L Lymph # (Auto) 0.4 L Seg Neutrophils % 89.4 H Seg Neutrophils # D-Dimer Sodium Potassium Chloride BUN 23 H Glucose 179 H Lactic Acid Ferritin AST Lactate Dehydrogenase C-Reactive Protein Total Protein Albumin Coronavirus (PCR) Positive A 07/10/20 07/10/20 07/10/20 04:52 04:52 14:59 WBC 11.3 H Hgb Hct MCV RDW 12.3 L Lymph % (Auto) 6.7 L Lymph # (Auto) 0.8 L Seg Neutrophils % 89.2 H Seg Neutrophils # 10.1 H D-Dimer 371.35 H Sodium 136 L Potassium Chloride BUN Glucose 134 H Lactic Acid Ferritin AST Lactate Dehydrogenase C-Reactive Protein Total Protein Albumin Coronavirus (PCR) 07/10/20 07/10/20 07/11/20 14:59 14:59 04:36 WBC Hgb Hct MCV RDW Lymph % (Auto) Lymph # (Auto) Seg Neutrophils % Seg Neutrophils # D-Dimer Sodium 136 L Potassium 5.4 H Chloride BUN Glucose 140 H Lactic Acid Ferritin 2974.0 H AST Lactate Dehydrogenase 440 H C-Reactive Protein 8.30 H Total Protein Albumin 3.2 L Coronavirus (PCR) 07/12/20 07/12/20 07/12/20 07:19 07:19 07:19 WBC Hgb Hct MCV RDW Lymph % (Auto) Lymph # (Auto) Seg Neutrophils % Seg Neutrophils # D-Dimer 4581.64 H Sodium Potassium Chloride BUN Glucose Lactic Acid Ferritin > 950.0 H AST Lactate Dehydrogenase 406 H C-Reactive Protein 11.10 H Total Protein Albumin Coronavirus (PCR)
--- NOTE | 2020-07-12 12:56 | Vascular Lab Report ---
DUPLEX DOPPLER LOWER EXTREMITY VEINS, BILATERAL INDICATION / CLINICAL INFORMATION: Shortness of breath/hypoxia. COVID positive. TECHNIQUE: Duplex doppler imaging was performed through the veins of both lower extremities using venous [place] and other maneuvers. COMPARISON: None available. FINDINGS: RIGHT COMMON FEMORAL VEIN: Negative. RIGHT FEMORAL VEIN: Negative. RIGHT POPLITEAL VEIN: Negative. RIGHT CALF VEINS: Negative. LEFT COMMON FEMORAL VEIN: Negative. LEFT FEMORAL VEIN: Negative. LEFT POPLITEAL VEIN: Negative. LEFT CALF VEINS: Negative. ADDITIONAL FINDINGS: There is no evidence of a popliteal cyst or other significant abnormality IMPRESSION: No sonographic evidence for DVT in either lower extremity. Signer Name: Rainer Arthur MD Signed: 07/12/2020 12:52 PM Workstation Name: [id number]
--- NOTE | 2020-07-12 14:19 | Progress Note ---
Assessment and Plan Cultures: SARS CoV2 PCR: Positive Blood culture: No growth A/P: 53-year-old male with hypertension: #Bilateral pneumonia: Secondary to COVID-19. Inflammatory markers elevated. #Acute hypoxic respiratory failure: On HFNC Recs: -IV/PO Dexamethasone 6 mg daily x 10 days -continue Remdesivir, D4 -prophylactic anticoagulation based on d-dimer per hospital protocol -trend ferritin, LDH, d-dimer, CRP every 2-3 days for risk stratification and to assess disease progression Umang Healy MD, FACP [facility], [place], [facility] ([facility] O: [phone] F: [phone] Subjective Date of service: 07/12/20 Interval history: Febrile. Remains on HFNC. Objective - Exam Narrative Exam: Physical Exam (reviewed in chart to minimize risk of transmission) Constitutional: deferred Head, Ears, Nose: deferred Eyes: deferred Neck: deferred Oral: deferred Cardiovascular: deferred Respiratory: deferred GI: deferred Musculoskeletal: deferred Skin: deferred Hem/Lymphatic: deferred Psych: deferred Neurological: deferred - Constitutional Vitals: Vital Signs Temp Pulse Resp BP Pulse Ox 101.5 F H 102 H 24 139/84 91 07/12/20 10:51 07/12/20 10:51 07/12/20 10:51 07/12/20 10:51 07/12/20 10:51 Temperature -Last 24 Hours Temperature 101.5 F Temperature 97.7 F Temperature 97.5 F Temperature 97.6 F - Labs CBC & Chem 7: 07/10/20 04:52 07/11/20 04:36 Labs: Abnormal lab results 07/12/20 07/12/20 07/12/20 Range/Units 07:19 07:19 07:19 D-Dimer 4581.64 H (0-234) ng/mlDDU Ferritin > 950.0 H (30.0-300.0) ng/mL Lactate Dehydrogenase 406 H (91-180) units/L C-Reactive Protein 11.10 H (0.00-1.30) mg/dL
[2020-07-12] MEDS: ACETAMINOPHEN 325 MG TAB PO PRN (15:29)
[2020-07-12] MEDS: guaiFENesin/CODEINE 100-10MG ORAL LIQD 5 ML PO PRN (15:29)
[2020-07-12] MEDS: SODIUM CHLORIDE 0.9% 50 ML IVPB IV SCH (21:37)
[2020-07-12] MEDS: REMDESIVIR 100 MG in SODIUM CHLORIDE 0.9% 250ML 250 ML IV SCH (21:37)
[2020-07-13 05:13] LABS: Hematocrit 40.8 % (35.5-45.6); Hemoglobin 13.7 gm/dl (11.8-15.2); Mean Corpuscular HGB Conc 34 % (32-34); Mean Corpuscular Volume 94 fl (84-94); Red Blood Count 4.36 M/mm3 (3.65-5.03); Red Cell Distribution Width 12.4 % (13.2-15.2)
[2020-07-13 05:18] LABS: Platelet Count 309 K/mm3 (140-440)
[2020-07-13 05:20] LABS: Blood Urea Nitrogen 18 mg/dL (9-20); Calcium 8.9 mg/dL (8.4-10.2); Hemolysis Index 9
[2020-07-13 05:24] LABS: BUN/Creatinine Ratio 26
--- NOTE | 2020-07-13 07:56 | Progress Note ---
Assessment and Plan Assessment and plan: 54-year-old male with known history of hypertension who tested Covid positive about 3 days ago presenting to the emergency room today complaining of shortness of breath and generalized weakness over the past few days. Shortness of breath is said to have gotten worse today and therefore decided to report to the emergency room. Upon arrival in the emergency room he had a blood pressure of 96/50, temperature of 1 103 F, tachypneic with an O2 saturation of 76% on room air. He was subsequently placed on oxygen 3 L and oxygen saturation improved to about 100%. Work-up in the emergency room today shows bilateral pneumonia on chest x-ray. Lactic acid also elevated at 2.40 Patient was placed on IV fluid per sepsis protocol, IV antibiotics and steroid. He has been admitted with pneumonia possibly secondary to COVID-19. 1) Bilateral pneumonia Current Visit: Yes Status: Acute Plan to address problem: Patient started on empiric IV antibiotics. We will await culture results. He however tested positive for COVID-19 few days ago. (2) Acute respiratory failure due to COVID-19 Current Visit: Yes Status: Acute Plan to address problem: Possibly due to the Covid pneumonia. Patient placed on oxygen by nasal cannula and will keep O2 saturation greater or equal to 94%. We will continue on IV antibiotics, placed on IV steroid. Patient also placed on isolation precautions. Infectious disease has been consulted for evaluation. (3) Sepsis Current Visit: Yes Status: Acute Plan to address problem: Secondary to the underlying pneumonia. Patient has been given some IV fluid and IV antibiotics. (4) DVT prophylaxis Current Visit: Yes Status: Acute Plan to address problem: Patient placed on subcutaneous Lovenox. (5) Full code status Current Visit: Yes Status: Acute Plan to address problem: Patient is full code. 07/09/2020; patient is admitted for sepsis secondary to Covid-19 pneumonia versus bacterial pneumonia. Patient is on IV Decadron and ID is consulted for remdesivir treatment. Patient is still short of breath, on 10 L of high flow oxygen. 07/10/2020; patient is on high flow oxygen, hyper etc. secondary to COVID-19 pneumonia versus bacterial pneumonia. Continue with IV antibiotics, remdesivir and Decadron. Pulmonary and ID consult appreciated. Patient is on intermediate dose of Lovenox for COVID-19 pneumonia. 12/23: Continue to wean high flow as tolerated. Continue COVID-19 protocol per [facility] policy. ID and pulmonary input noted. 07/12: Continue current management wean as tolerated. Continues on remdesivir and Decadron. We will give a dose of Lasix today. Continue to monitor I's and O's. Patient wants cough suppressant discussed the effectiveness of good cough to help keep the airways open. Trial of Robitussin for comfort measures. Patient remains critically ill. We will also check a serum muscularity we will add some vitamins supplementation. 07/13; still with fever, unfortunately appears that the oxygen demand went up. Patient received a dose of Lasix yesterday. Cough is slightly improving. We will continue current management. Prognosis remains guarded The high probability of a clinically significant, sudden or life threatening deterioration of the [pulmonary] system(s) required my full and direct attention, intervention and personal management. The aggregate critical care time was [35] minutes. This time is in addition to time spent performing reported procedures but includes the following: [x] Data Review and interpretation [x] Patient assessment and monitoring of vital signs [x] Documentation [x] Medication orders and management History Interval history: Patient seen and examined sitting up today states that he continues to stay prone. Palpation remains on high flow oxygen. Hospitalist Physical - Physical exam Narrative exam: Still with mild respiratory distress on high flow sitting on chair at bedside The patient appeared well nourished and normally developed. Vital signs as documented. Head exam is unremarkable. No scleral icterus . Neck is without jugular venous distension, thyromegaly, or carotid bruits. Lungs are clear to auscultation. Cardiac exam reveals regular rate and Rhythm. Abdominal exam reveals normal bowel sounds, nontender, no organomegaly. Extremities are nonedematous and both femoral and pedal pulses are normal. HOT ROOM ATTENDANT: Alert and oriented 3. No focal weakness. - Constitutional Vitals: Temp Pulse Resp BP Pulse Ox 98.0 F 73 16 125/66 89 07/13/20 05:47 07/13/20 05:47 07/13/20 05:47 07/13/20 05:47 07/13/20 05:47 General appearance: Present: no acute distress, well-nourished Results - Labs CBC & Chem 7: 07/13/20 04:26 07/13/20 04:26 Labs: Laboratory Last Values WBC 10.6 K/mm3 (4.5-11.0) 07/13/20 04:26 RBC 4.36 M/mm3 (3.65-5.03) 07/13/20 04:26 Hgb 13.7 gm/dl (11.8-15.2) 07/13/20 04:26 Hct 40.8 % (35.5-45.6) 07/13/20 04:26 MCV 94 fl (84-94) 07/13/20 04:26 MCH 31 pg (28-32) 07/13/20 04:26 MCHC 34 % (32-34) 07/13/20 04:26 RDW 12.4 % (13.2-15.2) L 07/13/20 04:26 Plt Count 309 K/mm3 (140-440) 07/13/20 04:26 Lymph % (Auto) 6.7 % (13.4-35.0) L 07/10/20 04:52 [place] % (Auto) 3.8 % (0.0-7.3) 07/10/20 04:52 Eos % (Auto) 0.0 % (0.0-4.3) 07/10/20 04:52 Baso % (Auto) 0.3 % (0.0-1.8) 07/10/20 04:52 Lymph # (Auto) 0.8 K/mm3 (1.2-5.4) L 07/10/20 04:52 [place] # (Auto) 0.4 K/mm3 (0.0-0.8) 07/10/20 04:52 Eos # (Auto) 0.0 K/mm3 (0.0-0.4) 07/10/20 04:52 Baso # (Auto) 0.0 K/mm3 (0.0-0.1) 07/10/20 04:52 Seg Neutrophils % 89.2 % (40.0-70.0) H 07/10/20 04:52 Seg Neutrophils # 10.1 K/mm3 (1.8-7.7) H 07/10/20 04:52 PT 13.3 Sec. (12.2-14.9) 07/09/20 06:00 INR 1.03 (0.87-1.13) 07/09/20 06:00 D-Dimer 4581.64 ng/mlDDU (0-234) H 07/12/20 07:19 Sodium 136 mmol/L (137-145) L 07/13/20 04:26 Potassium 4.2 mmol/L (3.6-5.0) D 07/13/20 04:26 Chloride 98.8 mmol/L (98-107) 07/13/20 04:26 Carbon Dioxide 25 mmol/L (22-30) 07/13/20 04:26 Anion Gap 16 mmol/L 07/13/20 04:26 BUN 18 mg/dL (9-20) 07/13/20 04:26 Creatinine 0.7 mg/dL (0.8-1.3) L 07/13/20 04:26 Estimated GFR > 60 ml/min 07/13/20 04:26 BUN/Creatinine Ratio 26 % 07/13/20 04:26 Glucose 119 mg/dL (75-100) H 07/13/20 04:26 Osmolality 288 Mosm/kg 07/12/20 13:42 Lactic Acid 1.00 mmol/L (0.7-2.0) 07/08/20 20:58 Calcium 8.9 mg/dL (8.4-10.2) 07/13/20 04:26 Ferritin > 950.0 ng/mL (30.0-300.0) H 07/12/20 07:19 Total Bilirubin 0.20 mg/dL (0.1-1.2) 07/11/20 04:36 Direct Bilirubin < 0.2 mg/dL (0-0.2) 07/11/20 04:36 Indirect Bilirubin 0.0 mg/dL 07/11/20 04:36 AST 33 units/L (5-40) 07/11/20 04:36 ALT 26 units/L (7-56) 07/11/20 04:36 Alkaline Phosphatase 51 units/L (35-129) 07/11/20 04:36 Lactate Dehydrogenase 406 units/L (91-180) H 07/12/20 07:19 C-Reactive Protein 11.10 mg/dL (0.00-1.30) H 07/12/20 07:19 Total Protein 6.3 g/dL (6.3-8.2) D 07/11/20 04:36 Albumin 3.2 g/dL (3.9-5) L 07/11/20 04:36 Albumin/Globulin Ratio 1.0 % 07/11/20 04:36 Procalcitonin 0.22 ng/mL (<0.15) 07/08/20 17:38 Urine Color Jaclyn (Yellow) 07/08/20 18:30 Urine Turbidity Clear (Clear) 07/08/20 18:30 Urine pH 5.0 (5.0-7.0) 07/08/20 18:30 Ur Specific [place] 1.027 (1.003-1.030) 07/08/20 18:30 Urine Protein >500 mg/dL (Negative) 07/08/20 18:30 Urine Glucose (UA) Neg mg/dL (Negative) 07/08/20 18:30 Urine Ketones Neg mg/dL (Negative) 07/08/20 18:30 Urine Blood Neg (Negative) 07/08/20 18:30 Urine Nitrite Neg (Negative) 07/08/20 18:30 Urine Bilirubin Neg (Negative) 07/08/20 18:30 Urine Urobilinogen 4.0 mg/dL (<2.0) 07/08/20 18:30 Ur Leukocyte Esterase Neg (Negative) 07/08/20 18:30 Urine WBC (Auto) 2.0 /HPF (0.0-6.0) 07/08/20 18:30 Urine RBC (Auto) 2.0 /HPF (0.0-6.0) 07/08/20 18:30 U Epithel Cells (Auto) 1.0 /HPF (0-13.0) 07/08/20 18:30 Urine Mucus Few /HPF 07/08/20 18:30 Nasal Screen MRSA (PCR) Negative (Negative) 07/11/20 18:05 Coronavirus (PCR) Positive (Negative) A 07/09/20 08:38 Microbiology: Microbiology 07/08/20 17:38 Peripheral/Venous Blood Culture - Preliminary NO GROWTH AFTER 4 DAYS 07/08/20 17:38 Peripheral/Venous Blood Culture - Preliminary NO GROWTH AFTER 4 DAYS Qiu/IV: Voiding Method Toilet IV Catheter Type [Right Peripheral IV Antecubital] IV Catheter Type [Left Peripheral IV Antecubital] Active Medications - Current Medications Current Medications: Generic Name Dose Route Start Last Admin Trade Name Freq PRN Reason Stop Dose Admin Acetaminophen 650 mg 07/08/20 21:33 07/12/20 15:29 Acetaminophen 325 Mg Tab PO 650 mg Q4H PRN Administration Pain MILD(1-3)/Fever >100.5/MORENO Ascorbic Acid 1,000 mg 07/12/20 10:00 07/12/20 21:39 Ascorbic Acid 500 Mg Tab PO 1,000 mg BID BRIANNA Administration Cholecalciferol 5,000 unit 07/12/20 10:00 07/12/20 11:33 Cholecalciferol (Vit D3) 5,000 Unit Tab PO 5,000 unit DAILY BRIANNA Administration Dexamethasone 6 mg 07/10/20 10:00 07/12/20 11:32 Dexamethasone 4 Mg Tab PO 07/17/20 10:01 6 mg DAILY BRIANNA Administration Enoxaparin Sodium 40 mg 07/10/20 10:00 07/12/20 21:37 Enoxaparin 40 Mg/0.4 Ml Inj SUB-Q 40 mg BID BRIANNA Administration Protocol REMDESIVIR 100 mg/ Sodium 250 mls @ 500 mls/hr 07/10/20 21:00 07/12/20 21:37 Chloride IV 07/13/20 21:29 500 mls/hr Q24HR@2100 BRIANNA Administration Magnesium Hydroxide 30 ml 07/08/20 21:33 Magnesium Hydroxide (Mom) Oral Liqd Udc PO Q4H PRN Constipation Ondansetron HCl 4 mg 07/08/20 21:33 07/09/20 04:37 Ondansetron 4 Mg/2 Ml Inj IV 4 mg Q8H PRN Administration Nausea And Vomiting Oxycodone HCl 5 mg 07/09/20 17:00 07/10/20 17:13 Oxycodone 5 Mg Tab PO 5 mg Q6H PRN Administration Pain, Moderate (4-6) Pseudoephedrine/Acetam/Chlorphenir 15 ml 07/09/20 12:00 07/12/20 15:29 Guaifenesin/Codeine 100-10mg Oral Liqd 5 Ml PO 15 ml Q4H PRN Administration Cough Sodium Chloride 10 ml 07/08/20 22:00 07/12/20 21:38 Sodium Chloride 0.9% 10 Ml Flush Syringe IV 10 ml BID BRIANNA Administration Sodium Chloride 10 ml 07/08/20 21:33 Sodium Chloride 0.9% 10 Ml Flush Syringe IV PRN PRN LINE FLUSH Sodium Chloride 50 ml 07/10/20 21:00 07/12/20 21:37 Sodium Chloride 0.9% 50 Ml Ivpb IV 07/13/20 21:01 50 ml Q24HR@2100 BRIANNA Administration Zinc Sulfate 220 mg 07/12/20 10:00 07/12/20 11:32 Zinc Sulfate 220 Mg Cap PO 220 mg QDAY BRIANNA Administration Nutrition/Malnutrition Assess - Dietary Evaluation Nutrition/Malnutrition Findings: Nutrition Notes Start: 07/12/20 10:48 Freq: Status: Active Protocol: Document 07/12/20 10:49 (Rec: 07/12/20 10:55 [id number]) Nutrition Notes Need for Assessment generated from: second steward,MST Initial or Follow up Brief Note Current Diagnosis Sepsis,Hypertension Other Pertinent Diagnosis COVID, pneuumonia Current Diet Cardiac Subjective/Other Information RN screen for MST. Pt did not answer phone x2. Per chart, pt ate 75% of breakfast 07/11. Nutrition Intervention Follow-Up By: 07/16/20 Additional Comments FU for MST assessment
[2020-07-13] MEDS: ENOXAPARIN 40 MG/0.4 ML INJ SUB-Q SCH ×2 (10:18→21:41)
[2020-07-13] MEDS: ASCORBIC ACID 500 MG TAB PO SCH ×2 (10:18→21:39)
[2020-07-13] MEDS: DEXAMETHASONE 4 MG TAB PO SCH (10:18)
[2020-07-13] MEDS: CHOLECALCIFEROL (VIT D3) 5,000 UNIT TAB PO SCH (10:19)
[2020-07-13] MEDS: ZINC SULFATE 220 MG CAP PO SCH (10:19)
--- NOTE | 2020-07-13 13:12 | Cat Scan Report ---
CT ANGIOGRAPHY OF THE CHEST WITH INTRAVENOUS CONTRAST AND MULTIPLANAR MIP RECONSTRUCTIONS INDICATION / CLINICAL INFORMATION: Shortness of breath/hypoxemia. COVID positive. TECHNIQUE: Axial CT images were obtained after injection of 100 cc Omnipaque 350 IV contrast using CTA protocol. 3 plane MIP / 3D reconstructions were produced. All CT scans at this location are performed using CT dose reduction for ALARA by means of automated exposure control. COMPARISON: None available. FINDINGS: There is good opacification of the pulmonary arterial system bilaterally without intraluminal filling defect suggest acute PTE. The thoracic aorta is normal in caliber without dissection. There is mild coronary artery calcification. There is moderately severe multifocal patchy parenchymal disease bilaterally. Disease is predominantl y groundglass in appearance and peripheral with basilar predominance. There is associated septal thic kening. A few minimal patchy areas of consolidation are present in the lower lobes. There is no evide nce of pleural effusion or adenopathy. The visualized upper abdomen is unremarkable. No acute osseous abnormality is present. IMPRESSION: 1. No evidence of acute PTE. 2. Moderately severe patchy areas of groundglass parenchymal disease and associated septal thickening throughout both lungs with a basilar predominance. The findings are likely related to atypical pneum onia, including viral pneumonia (COVID-19). 3. Mild coronary artery calcification. Signer Name: Rainer Arthur MD Signed: 07/13/2020 1:07 PM Workstation Name: [id number]
--- NOTE | 2020-07-13 20:17 | Progress Note ---
Assessment and Plan Imp: 1. Covid-19/Viral pneumonia/ARDS 2. Acute respiratory failure, hypoxia 3. AKILAH, better Rec: 1. Decadron x 10 days 2. Remdesivir x 5 days 3. Lovenox for VTE PPx; CTA chest negative for PE 4. Avoid volume overload 5. Proning as tolerated 6. Incentive [place] 10x per hour while awake 7. Wean FiO2, then flow, to keep sats 88% or > 8. CCT 31 minutes Plan of care reviewed w/ patient, he understands/agrees Subjective Date of service: 07/13/20 Principal diagnosis: Covid Interval history: No events. CTA chest done. Remains on 95% FiO2 and 35LPM. SOB may be a little better. He is currently proning and using Incentive Sigifredo. Cough similar. Active Medications Acetaminophen (Acetaminophen 325 Mg Tab) 650 mg PO Q4H PRN PRN Reason: Pain MILD(1-3)/Fever >100.5/MORENO Last Admin: 07/12/20 15:29 Dose: 650 mg Documented by: Ascorbic Acid (Ascorbic Acid 500 Mg Tab) 1,000 mg PO BID [facility] Last Admin: 07/13/20 10:18 Dose: 1,000 mg Documented by: Cholecalciferol (Cholecalciferol (Vit D3) 5,000 Unit Tab) 5,000 unit PO DAILY [facility] Last Admin: 07/13/20 10:19 Dose: 5,000 unit Documented by: Dexamethasone (Dexamethasone 4 Mg Tab) 6 mg PO DAILY [facility] Stop: 07/17/20 10:01 Last Admin: 07/13/20 10:18 Dose: 6 mg Documented by: Enoxaparin Sodium (Enoxaparin 40 Mg/0.4 Ml Inj) 40 mg SUB-Q BID [facility]; Protocol Last Admin: 07/13/20 10:18 Dose: 40 mg Documented by: REMDESIVIR 100 mg/ Sodium (Chloride) 250 mls @ 500 mls/hr IV Q24HR@2100 [facility] Stop: 07/13/20 21:29 Last Admin: 07/12/20 21:37 Dose: 500 mls/hr Documented by: Magnesium Hydroxide (Magnesium Hydroxide (Mom) Oral Liqd Udc) 30 ml PO Q4H PRN PRN Reason: Constipation Ondansetron HCl (Ondansetron 4 Mg/2 Ml Inj) 4 mg IV Q8H PRN PRN Reason: Nausea And Vomiting Last Admin: 07/09/20 04:37 Dose: 4 mg Documented by: Oxycodone HCl (Oxycodone 5 Mg Tab) 5 mg PO Q6H PRN PRN Reason: Pain, Moderate (4-6) Last Admin: 07/10/20 17:13 Dose: 5 mg Documented by: Pseudoephedrine/Acetam/Chlorphenir (Guaifenesin/Codeine 100-10mg Oral Liqd 5 Ml) 15 ml PO Q4H PRN PRN Reason: Cough Last Admin: 07/12/20 15:29 Dose: 15 ml Documented by: Sodium Chloride (Sodium Chloride 0.9% 10 Ml Flush Syringe) 10 ml IV BID [facility] Last Admin: 07/13/20 10:19 Dose: 10 ml Documented by: Sodium Chloride (Sodium Chloride 0.9% 10 Ml Flush Syringe) 10 ml IV PRN PRN PRN Reason: LINE FLUSH Sodium Chloride (Sodium Chloride 0.9% 50 Ml Ivpb) 50 ml IV Q24HR@2100 [facility] Stop: 07/13/20 21:01 Last Admin: 07/12/20 21:37 Dose: 50 ml Documented by: Zinc Sulfate (Zinc Sulfate 220 Mg Cap) 220 mg PO QDAY [facility] Last Admin: 07/13/20 10:19 Dose: 220 mg Documented by: Objective Vital Signs - 12hr 07/13/20 07/13/20 14:50 16:34 Temperature 100.2 F H Pulse Rate 94 H Respiratory 20 Rate Blood Pressure 127/75 O2 Sat by Pulse 94 96 Oximetry Constitutional: alert, other (critically ill on HFNC) Eyes: non-icteric ENT: oropharynx moist Neck: supple Effort: normal Ascultation: Bilateral: clear Cardiovascular: regular rate and rhythm (no mrg) Gastrointestinal: normoactive bowel sounds, soft, non-distended Integumentary: normal Extremities: no cyanosis, no edema, pink and warm Neurologic: normal mental status, non-focal exam Psychiatric: mood appropriate, affect normal CBC and BMP: 07/13/20 04:26 07/13/20 04:26 ABG, PT/INR, D-dimer: PT/INR, D-dimer PT 13.3 Sec. (12.2-14.9) 07/09/20 06:00 INR 1.03 (0.87-1.13) 07/09/20 06:00 D-Dimer 4581.64 ng/mlDDU (0-234) H 07/12/20 07:19 Abnormal lab findings: Abnormal Labs 07/08/20 07/08/20 07/08/20 17:38 17:38 17:38 WBC Hgb 16.1 H Hct 47.8 H MCV 95 H RDW 12.4 L Lymph % (Auto) 12.0 L Lymph # (Auto) 1.0 L Seg Neutrophils % 83.6 H Seg Neutrophils # D-Dimer 284.74 H Sodium Potassium Chloride BUN Creatinine Glucose Lactic Acid 2.40 H* Ferritin AST Lactate Dehydrogenase C-Reactive Protein Total Protein Albumin Coronavirus (PCR) 07/08/20 07/08/20 07/08/20 17:38 17:38 17:38 WBC Hgb Hct MCV RDW Lymph % (Auto) Lymph # (Auto) Seg Neutrophils % Seg Neutrophils # D-Dimer Sodium 133 L Potassium Chloride 92.8 L BUN 22 H Creatinine Glucose 131 H 128 H Lactic Acid Ferritin > 2000.0 H AST 56 H Lactate Dehydrogenase 604 H C-Reactive Protein 29.00 H Total Protein 8.4 H Albumin 3.5 L Coronavirus (PCR) 07/09/20 07/09/20 07/09/20 06:00 06:00 08:38 WBC Hgb Hct MCV RDW 12.3 L Lymph % (Auto) 5.4 L Lymph # (Auto) 0.4 L Seg Neutrophils % 89.4 H Seg Neutrophils # D-Dimer Sodium Potassium Chloride BUN 23 H Creatinine Glucose 179 H Lactic Acid Ferritin AST Lactate Dehydrogenase C-Reactive Protein Total Protein Albumin Coronavirus (PCR) Positive A 07/10/20 07/10/20 07/10/20 04:52 04:52 14:59 WBC 11.3 H Hgb Hct MCV RDW 12.3 L Lymph % (Auto) 6.7 L Lymph # (Auto) 0.8 L Seg Neutrophils % 89.2 H Seg Neutrophils # 10.1 H D-Dimer 371.35 H Sodium 136 L Potassium Chloride BUN Creatinine Glucose 134 H Lactic Acid Ferritin AST Lactate Dehydrogenase C-Reactive Protein Total Protein Albumin Coronavirus (PCR) 07/10/20 07/10/20 07/11/20 14:59 14:59 04:36 WBC Hgb Hct MCV RDW Lymph % (Auto) Lymph # (Auto) Seg Neutrophils % Seg Neutrophils # D-Dimer Sodium 136 L Potassium 5.4 H Chloride BUN Creatinine Glucose 140 H Lactic Acid Ferritin 2974.0 H AST Lactate Dehydrogenase 440 H C-Reactive Protein 8.30 H Total Protein Albumin 3.2 L Coronavirus (PCR) 07/12/20 07/12/20 07/12/20 07:19 07:19 07:19 WBC Hgb Hct MCV RDW Lymph % (Auto) Lymph # (Auto) Seg Neutrophils % Seg Neutrophils # D-Dimer 4581.64 H Sodium Potassium Chloride BUN Creatinine Glucose Lactic Acid Ferritin > 950.0 H AST Lactate Dehydrogenase 406 H C-Reactive Protein 11.10 H Total Protein Albumin Coronavirus (PCR) 07/13/20 07/13/20 04:26 04:26 WBC Hgb Hct MCV RDW 12.4 L Lymph % (Auto) Lymph # (Auto) Seg Neutrophils % Seg Neutrophils # D-Dimer Sodium 136 L Potassium Chloride BUN Creatinine 0.7 L Glucose 119 H Lactic Acid Ferritin AST Lactate Dehydrogenase C-Reactive Protein Total Protein Albumin Coronavirus (PCR) Chest x-ray: report reviewed, image reviewed CT scan - chest: report reviewed, image reviewed (no PE, severe bilateral infiltrates)
[2020-07-13] MEDS: REMDESIVIR 100 MG in SODIUM CHLORIDE 0.9% 250ML 250 ML IV SCH (22:07)
[2020-07-13] MEDS: SODIUM CHLORIDE 0.9% 50 ML IVPB IV SCH (22:39)
[2020-07-14] MEDS: CHOLECALCIFEROL (VIT D3) 5,000 UNIT TAB PO SCH (09:35)
[2020-07-14] MEDS: ZINC SULFATE 220 MG CAP PO SCH (09:35)
[2020-07-14] MEDS: ENOXAPARIN 40 MG/0.4 ML INJ SUB-Q SCH ×2 (09:35→21:33)
[2020-07-14] MEDS: ASCORBIC ACID 500 MG TAB PO SCH ×2 (09:35→21:34)
[2020-07-14] MEDS: DEXAMETHASONE 4 MG TAB PO SCH (09:35)
--- NOTE | 2020-07-14 10:13 | Progress Note ---
Assessment and Plan Assessment and plan: 54-year-old male with known history of hypertension who tested Covid positive about 3 days ago presenting to the emergency room today complaining of shortness of breath and generalized weakness over the past few days. Shortness of breath is said to have gotten worse today and therefore decided to report to the emergency room. Upon arrival in the emergency room he had a blood pressure of 96/50, temperature of 1 103 F, tachypneic with an O2 saturation of 76% on room air. He was subsequently placed on oxygen 3 L and oxygen saturation improved to about 100%. Work-up in the emergency room today shows bilateral pneumonia on chest x-ray. Lactic acid also elevated at 2.40 Patient was placed on IV fluid per sepsis protocol, IV antibiotics and steroid. He has been admitted with pneumonia possibly secondary to COVID-19. 1) Bilateral pneumonia Current Visit: Yes Status: Acute Plan to address problem: Patient started on empiric IV antibiotics. We will await culture results. He however tested positive for COVID-19 few days ago. (2) Acute respiratory failure due to COVID-19 Current Visit: Yes Status: Acute Plan to address problem: Possibly due to the Covid pneumonia. Patient placed on oxygen by nasal cannula and will keep O2 saturation greater or equal to 94%. We will continue on IV antibiotics, placed on IV steroid. Patient also placed on isolation precautions. Infectious disease has been consulted for evaluation. (3) Sepsis Current Visit: Yes Status: Acute Plan to address problem: Secondary to the underlying pneumonia. Patient has been given some IV fluid and IV antibiotics. (4) DVT prophylaxis Current Visit: Yes Status: Acute Plan to address problem: Patient placed on subcutaneous Lovenox. (5) Full code status Current Visit: Yes Status: Acute Plan to address problem: Patient is full code. 07/09/2020; patient is admitted for sepsis secondary to Covid-19 pneumonia versus bacterial pneumonia. Patient is on IV Decadron and ID is consulted for remdesivir treatment. Patient is still short of breath, on 10 L of high flow oxygen. 07/10/2020; patient is on high flow oxygen, hyper etc. secondary to COVID-19 pneumonia versus bacterial pneumonia. Continue with IV antibiotics, remdesivir and Decadron. Pulmonary and ID consult appreciated. Patient is on intermediate dose of Lovenox for COVID-19 pneumonia. 12/23: Continue to wean high flow as tolerated. Continue COVID-19 protocol per [facility] policy. ID and pulmonary input noted. 07/12: Continue current management wean as tolerated. Continues on remdesivir and Decadron. We will give a dose of Lasix today. Continue to monitor I's and O's. Patient wants cough suppressant discussed the effectiveness of good cough to help keep the airways open. Trial of Robitussin for comfort measures. Patient remains critically ill. We will also check a serum muscularity we will add some vitamins supplementation. 07/13; still with fever, unfortunately appears that the oxygen demand went up. Patient received a dose of Lasix yesterday. Cough is slightly improving. We will continue current management. Prognosis remains guarded 07/14: Continue supportive care, will give additional lasix today. Oxygen FIO2 down to 80% with sat 94% The high probability of a clinically significant, sudden or life threatening deterioration of the [pulmonary] system(s) required my full and direct attention, intervention and personal management. The aggregate critical care time was [35] minutes. This time is in addition to time spent performing reported procedures but includes the following: [x] Data Review and interpretation [x] Patient assessment and monitoring of vital signs [x] Documentation [x] Medication orders and management History Interval history: Patient seen and examined sitting up today states that he continues to stay prone. Palpation remains on high flow oxygen. Hospitalist Physical - Physical exam Narrative exam: Still with mild respiratory distress on high flow sitting at bedside The patient appeared well nourished and normally developed. Vital signs as documented. Head exam is unremarkable. No scleral icterus . Neck is without jugular venous distension, thyromegaly, or carotid bruits. Lungs are clear to auscultation. Cardiac exam reveals regular rate and Rhythm. Abdominal exam reveals normal bowel sounds, nontender, no organomegaly. Extremities are nonedematous and both femoral and pedal pulses are normal. CUSTOMER SERVICE ADVISOR: Alert and oriented 3. No focal weakness. - Constitutional Vitals: Temp Pulse Resp BP Pulse Ox 98.4 F 79 18 116/66 95 07/13/20 21:59 07/13/20 21:59 07/13/20 21:59 07/13/20 21:59 07/14/20 08:44 General appearance: Present: no acute distress, well-nourished Results - Labs CBC & Chem 7: 07/13/20 04:26 07/13/20 04:26 Labs: Laboratory Last Values WBC 10.6 K/mm3 (4.5-11.0) 07/13/20 04:26 RBC 4.36 M/mm3 (3.65-5.03) 07/13/20 04:26 Hgb 13.7 gm/dl (11.8-15.2) 07/13/20 04:26 Hct 40.8 % (35.5-45.6) 07/13/20 04:26 MCV 94 fl (84-94) 07/13/20 04:26 MCH 31 pg (28-32) 07/13/20 04:26 MCHC 34 % (32-34) 07/13/20 04:26 RDW 12.4 % (13.2-15.2) L 07/13/20 04:26 Plt Count 309 K/mm3 (140-440) 07/13/20 04:26 Lymph % (Auto) 6.7 % (13.4-35.0) L 07/10/20 04:52 Rich % (Auto) 3.8 % (0.0-7.3) 07/10/20 04:52 Eos % (Auto) 0.0 % (0.0-4.3) 07/10/20 04:52 Baso % (Auto) 0.3 % (0.0-1.8) 07/10/20 04:52 Lymph # (Auto) 0.8 K/mm3 (1.2-5.4) L 07/10/20 04:52 Rich # (Auto) 0.4 K/mm3 (0.0-0.8) 07/10/20 04:52 Eos # (Auto) 0.0 K/mm3 (0.0-0.4) 07/10/20 04:52 Baso # (Auto) 0.0 K/mm3 (0.0-0.1) 07/10/20 04:52 Seg Neutrophils % 89.2 % (40.0-70.0) H 07/10/20 04:52 Seg Neutrophils # 10.1 K/mm3 (1.8-7.7) H 07/10/20 04:52 PT 13.3 Sec. (12.2-14.9) 07/09/20 06:00 INR 1.03 (0.87-1.13) 07/09/20 06:00 D-Dimer 4581.64 ng/mlDDU (0-234) H 07/12/20 07:19 Sodium 136 mmol/L (137-145) L 07/13/20 04:26 Potassium 4.2 mmol/L (3.6-5.0) D 07/13/20 04:26 Chloride 98.8 mmol/L (98-107) 07/13/20 04:26 Carbon Dioxide 25 mmol/L (22-30) 07/13/20 04:26 Anion Gap 16 mmol/L 07/13/20 04:26 BUN 18 mg/dL (9-20) 07/13/20 04:26 Creatinine 0.7 mg/dL (0.8-1.3) L 07/13/20 04:26 Estimated GFR > 60 ml/min 07/13/20 04:26 BUN/Creatinine Ratio 26 % 07/13/20 04:26 Glucose 119 mg/dL (75-100) H 07/13/20 04:26 Osmolality 288 Mosm/kg 07/12/20 13:42 Lactic Acid 1.00 mmol/L (0.7-2.0) 07/08/20 20:58 Calcium 8.9 mg/dL (8.4-10.2) 07/13/20 04:26 Ferritin > 950.0 ng/mL (30.0-300.0) H 07/12/20 07:19 Total Bilirubin 0.20 mg/dL (0.1-1.2) 07/11/20 04:36 Direct Bilirubin < 0.2 mg/dL (0-0.2) 07/11/20 04:36 Indirect Bilirubin 0.0 mg/dL 07/11/20 04:36 AST 33 units/L (5-40) 07/11/20 04:36 ALT 26 units/L (7-56) 07/11/20 04:36 Alkaline Phosphatase 51 units/L (35-129) 07/11/20 04:36 Lactate Dehydrogenase 406 units/L (91-180) H 07/12/20 07:19 C-Reactive Protein 11.10 mg/dL (0.00-1.30) H 07/12/20 07:19 Total Protein 6.3 g/dL (6.3-8.2) D 07/11/20 04:36 Albumin 3.2 g/dL (3.9-5) L 07/11/20 04:36 Albumin/Globulin Ratio 1.0 % 07/11/20 04:36 Procalcitonin 0.22 ng/mL (<0.15) 07/08/20 17:38 Urine Color Jaclyn (Yellow) 07/08/20 18:30 Urine Turbidity Clear (Clear) 07/08/20 18:30 Urine pH 5.0 (5.0-7.0) 07/08/20 18:30 Ur Specific [place] 1.027 (1.003-1.030) 07/08/20 18:30 Urine Protein >500 mg/dL (Negative) 07/08/20 18:30 Urine Glucose (UA) Neg mg/dL (Negative) 07/08/20 18:30 Urine Ketones Neg mg/dL (Negative) 07/08/20 18:30 Urine Blood Neg (Negative) 07/08/20 18:30 Urine Nitrite Neg (Negative) 07/08/20 18:30 Urine Bilirubin Neg (Negative) 07/08/20 18:30 Urine Urobilinogen 4.0 mg/dL (<2.0) 07/08/20 18:30 Ur Leukocyte Esterase Neg (Negative) 07/08/20 18:30 Urine WBC (Auto) 2.0 /HPF (0.0-6.0) 07/08/20 18:30 Urine RBC (Auto) 2.0 /HPF (0.0-6.0) 07/08/20 18:30 U Epithel Cells (Auto) 1.0 /HPF (0-13.0) 07/08/20 18:30 Urine Mucus Few /HPF 07/08/20 18:30 Nasal Screen MRSA (PCR) Negative (Negative) 07/11/20 18:05 Coronavirus (PCR) Positive (Negative) A 07/09/20 08:38 Microbiology: Microbiology 07/08/20 17:38 Peripheral/Venous Blood Culture - Final NO GROWTH AFTER 5 DAYS 07/08/20 17:38 Peripheral/Venous Blood Culture - Final NO GROWTH AFTER 5 DAYS Qiu/IV: Voiding Method Toilet IV Catheter Type [Right Peripheral IV Antecubital] IV Catheter Type [Left Peripheral IV Antecubital] Active Medications - Current Medications Current Medications: Generic Name Dose Route Start Last Admin Trade Name Freq PRN Reason Stop Dose Admin Acetaminophen 650 mg 07/08/20 21:33 07/12/20 15:29 Acetaminophen 325 Mg Tab PO 650 mg Q4H PRN Administration Pain MILD(1-3)/Fever >100.5/MORENO Ascorbic Acid 1,000 mg 07/12/20 10:00 07/14/20 09:35 Ascorbic Acid 500 Mg Tab PO 1,000 mg BID BRIANNA Administration Cholecalciferol 5,000 unit 07/12/20 10:00 07/14/20 09:35 Cholecalciferol (Vit D3) 5,000 Unit Tab PO 5,000 unit DAILY BRIANNA Administration Dexamethasone 6 mg 07/10/20 10:00 07/14/20 09:35 Dexamethasone 4 Mg Tab PO 07/17/20 10:01 6 mg DAILY BRIANNA Administration Enoxaparin Sodium 40 mg 07/10/20 10:00 07/14/20 09:35 Enoxaparin 40 Mg/0.4 Ml Inj SUB-Q 40 mg BID BRIANNA Administration Protocol Magnesium Hydroxide 30 ml 07/08/20 21:33 Magnesium Hydroxide (Mom) Oral Liqd Udc PO Q4H PRN Constipation Ondansetron HCl 4 mg 07/08/20 21:33 07/09/20 04:37 Ondansetron 4 Mg/2 Ml Inj IV 4 mg Q8H PRN Administration Nausea And Vomiting Oxycodone HCl 5 mg 07/09/20 17:00 07/10/20 17:13 Oxycodone 5 Mg Tab PO 5 mg Q6H PRN Administration Pain, Moderate (4-6) Pseudoephedrine/Acetam/Chlorphenir 15 ml 07/09/20 12:00 07/12/20 15:29 Guaifenesin/Codeine 100-10mg Oral Liqd 5 Ml PO 15 ml Q4H PRN Administration Cough Sodium Chloride 10 ml 07/08/20 22:00 07/14/20 09:36 Sodium Chloride 0.9% 10 Ml Flush Syringe IV 10 ml BID BRIANNA Administration Sodium Chloride 10 ml 07/08/20 21:33 Sodium Chloride 0.9% 10 Ml Flush Syringe IV PRN PRN LINE FLUSH Zinc Sulfate 220 mg 07/12/20 10:00 07/14/20 09:35 Zinc Sulfate 220 Mg Cap PO 220 mg QDAY BRIANNA Administration Nutrition/Malnutrition Assess - Dietary Evaluation Nutrition/Malnutrition Findings: Nutrition Notes Start: 07/12/20 10:48 Freq: Status: Active Protocol: Document 07/12/20 10:49 MK (Rec: 07/12/20 10:55 MK [id number]) Nutrition Notes Need for Assessment generated from: social services counselor,MST Initial or Follow up Brief Note Current Diagnosis Sepsis,Hypertension Other Pertinent Diagnosis COVID, pneuumonia Current Diet Cardiac Subjective/Other Information RN screen for MST. Pt did not answer phone x2. Per chart, pt ate 75% of breakfast 07/11. Nutrition Intervention Follow-Up By: 07/16/20 Additional Comments FU for MST assessment
--- NOTE | 2020-07-14 22:03 | Progress Note ---
Assessment and Plan Imp: 1. Covid-19/Viral pneumonia/ARDS 2. Acute respiratory failure, hypoxia 3. AKILAH, better Rec: 1. Decadron x 10 days 2. Remdesivir x 5 days 3. Lovenox BID for VTE PPx; CTA chest negative for PE 4. Avoid volume overload 5. Proning as tolerated 6. Incentive Sigifredo 10x per hour while awake 7. Wean FiO2, then flow, to keep sats 88% or > 8. Trend inflammatory markers 9. Complex decision-making Plan of care reviewed w/ patient, he understands/agrees Subjective Date of service: 07/14/20 Principal diagnosis: Covid Interval history: No events. He is on 100% FiO2 and 40LPM. SOB may be a little better. He is currently proning and using Incentive Sigifredo. Cough similar. Active Medications Acetaminophen (Acetaminophen 325 Mg Tab) 650 mg PO Q4H PRN PRN Reason: Pain MILD(1-3)/Fever >100.5/MORENO Last Admin: 07/12/20 15:29 Dose: 650 mg Documented by: Ascorbic Acid (Ascorbic Acid 500 Mg Tab) 1,000 mg PO BID [facility] Last Admin: 07/14/20 21:34 Dose: 1,000 mg Documented by: Cholecalciferol (Cholecalciferol (Vit D3) 5,000 Unit Tab) 5,000 unit PO DAILY [facility] Last Admin: 07/14/20 09:35 Dose: 5,000 unit Documented by: Dexamethasone (Dexamethasone 4 Mg Tab) 6 mg PO DAILY [facility] Stop: 07/17/20 10:01 Last Admin: 07/14/20 09:35 Dose: 6 mg Documented by: Enoxaparin Sodium (Enoxaparin 40 Mg/0.4 Ml Inj) 40 mg SUB-Q BID [facility]; Protocol Last Admin: 07/14/20 21:33 Dose: 40 mg Documented by: Magnesium Hydroxide (Magnesium Hydroxide (Mom) Oral Liqd Udc) 30 ml PO Q4H PRN PRN Reason: Constipation Ondansetron HCl (Ondansetron 4 Mg/2 Ml Inj) 4 mg IV Q8H PRN PRN Reason: Nausea And Vomiting Last Admin: 07/09/20 04:37 Dose: 4 mg Documented by: Oxycodone HCl (Oxycodone 5 Mg Tab) 5 mg PO Q6H PRN PRN Reason: Pain, Moderate (4-6) Last Admin: 07/10/20 17:13 Dose: 5 mg Documented by: Pseudoephedrine/Acetam/Chlorphenir (Guaifenesin/Codeine 100-10mg Oral Liqd 5 Ml) 15 ml PO Q4H PRN PRN Reason: Cough Last Admin: 07/12/20 15:29 Dose: 15 ml Documented by: Sodium Chloride (Sodium Chloride 0.9% 10 Ml Flush Syringe) 10 ml IV BID [facility] Last Admin: 07/14/20 21:34 Dose: 10 ml Documented by: Sodium Chloride (Sodium Chloride 0.9% 10 Ml Flush Syringe) 10 ml IV PRN PRN PRN Reason: LINE FLUSH Zinc Sulfate (Zinc Sulfate 220 Mg Cap) 220 mg PO QDAY [facility] Last Admin: 07/14/20 09:35 Dose: 220 mg Documented by: Objective Vital Signs - 12hr 07/14/20 07/14/20 07/14/20 11:32 13:23 18:20 Temperature 99.1 F 99.1 F Pulse Rate 96 H 81 Respiratory 20 22 Rate Blood Pressure 113/75 110/64 O2 Sat by Pulse 95 95 95 Oximetry Constitutional: alert, other (critically ill on HFNC) Eyes: non-icteric ENT: oropharynx moist Neck: supple Effort: normal Ascultation: Bilateral: clear Cardiovascular: regular rate and rhythm (no mrg) Gastrointestinal: normoactive bowel sounds, soft, non-distended Integumentary: normal Extremities: no cyanosis, no edema, pink and warm Neurologic: normal mental status, non-focal exam Psychiatric: mood appropriate, affect normal CBC and BMP: 07/13/20 04:26 07/13/20 04:26 ABG, PT/INR, D-dimer: PT/INR, D-dimer PT 13.3 Sec. (12.2-14.9) 07/09/20 06:00 INR 1.03 (0.87-1.13) 07/09/20 06:00 D-Dimer 4581.64 ng/mlDDU (0-234) H 07/12/20 07:19 Abnormal lab findings: Abnormal Labs 07/08/20 07/08/20 07/08/20 17:38 17:38 17:38 WBC Hgb 16.1 H Hct 47.8 H MCV 95 H RDW 12.4 L Lymph % (Auto) 12.0 L Lymph # (Auto) 1.0 L Seg Neutrophils % 83.6 H Seg Neutrophils # D-Dimer 284.74 H Sodium Potassium Chloride BUN Creatinine Glucose Lactic Acid 2.40 H* Ferritin AST Lactate Dehydrogenase C-Reactive Protein Total Protein Albumin Coronavirus (PCR) 07/08/20 07/08/20 07/08/20 17:38 17:38 17:38 WBC Hgb Hct MCV RDW Lymph % (Auto) Lymph # (Auto) Seg Neutrophils % Seg Neutrophils # D-Dimer Sodium 133 L Potassium Chloride 92.8 L BUN 22 H Creatinine Glucose 131 H 128 H Lactic Acid Ferritin > 2000.0 H AST 56 H Lactate Dehydrogenase 604 H C-Reactive Protein 29.00 H Total Protein 8.4 H Albumin 3.5 L Coronavirus (PCR) 07/09/20 07/09/20 07/09/20 06:00 06:00 08:38 WBC Hgb Hct MCV RDW 12.3 L Lymph % (Auto) 5.4 L Lymph # (Auto) 0.4 L Seg Neutrophils % 89.4 H Seg Neutrophils # D-Dimer Sodium Potassium Chloride BUN 23 H Creatinine Glucose 179 H Lactic Acid Ferritin AST Lactate Dehydrogenase C-Reactive Protein Total Protein Albumin Coronavirus (PCR) Positive A 07/10/20 07/10/20 07/10/20 04:52 04:52 14:59 WBC 11.3 H Hgb Hct MCV RDW 12.3 L Lymph % (Auto) 6.7 L Lymph # (Auto) 0.8 L Seg Neutrophils % 89.2 H Seg Neutrophils # 10.1 H D-Dimer 371.35 H Sodium 136 L Potassium Chloride BUN Creatinine Glucose 134 H Lactic Acid Ferritin AST Lactate Dehydrogenase C-Reactive Protein Total Protein Albumin Coronavirus (PCR) 07/10/20 07/10/20 07/11/20 14:59 14:59 04:36 WBC Hgb Hct MCV RDW Lymph % (Auto) Lymph # (Auto) Seg Neutrophils % Seg Neutrophils # D-Dimer Sodium 136 L Potassium 5.4 H Chloride BUN Creatinine Glucose 140 H Lactic Acid Ferritin 2974.0 H AST Lactate Dehydrogenase 440 H C-Reactive Protein 8.30 H Total Protein Albumin 3.2 L Coronavirus (PCR) 07/12/20 07/12/20 07/12/20 07:19 07:19 07:19 WBC Hgb Hct MCV RDW Lymph % (Auto) Lymph # (Auto) Seg Neutrophils % Seg Neutrophils # D-Dimer 4581.64 H Sodium Potassium Chloride BUN Creatinine Glucose Lactic Acid Ferritin > 950.0 H AST Lactate Dehydrogenase 406 H C-Reactive Protein 11.10 H Total Protein Albumin Coronavirus (PCR) 07/13/20 07/13/20 04:26 04:26 WBC Hgb Hct MCV RDW 12.4 L Lymph % (Auto) Lymph # (Auto) Seg Neutrophils % Seg Neutrophils # D-Dimer Sodium 136 L Potassium Chloride BUN Creatinine 0.7 L Glucose 119 H Lactic Acid Ferritin AST Lactate Dehydrogenase C-Reactive Protein Total Protein Albumin Coronavirus (PCR) Chest x-ray: report reviewed, image reviewed CT scan - chest: report reviewed, image reviewed
[2020-07-14] MEDS: guaiFENesin 100 MG/5 ML ORAL LIQD PO PRN (23:00)
[2020-07-15] MEDS: DEXAMETHASONE 4 MG TAB PO SCH (09:43)
[2020-07-15] MEDS: ZINC SULFATE 220 MG CAP PO SCH (09:43)
[2020-07-15] MEDS: ENOXAPARIN 40 MG/0.4 ML INJ SUB-Q SCH ×2 (09:43→21:21)
[2020-07-15] MEDS: ASCORBIC ACID 500 MG TAB PO SCH ×2 (09:43→21:25)
[2020-07-15] MEDS: CHOLECALCIFEROL (VIT D3) 5,000 UNIT TAB PO SCH (09:44)
--- NOTE | 2020-07-15 12:02 | Progress Note ---
Assessment and Plan Assessment and plan: 54-year-old male with known history of hypertension who tested Covid positive about 3 days ago presenting to the emergency room today complaining of shortness of breath and generalized weakness over the past few days. Shortness of breath is said to have gotten worse today and therefore decided to report to the emergency room. Upon arrival in the emergency room he had a blood pressure of 96/50, temperature of 1 103 F, tachypneic with an O2 saturation of 76% on room air. He was subsequently placed on oxygen 3 L and oxygen saturation improved to about 100%. Work-up in the emergency room today shows bilateral pneumonia on chest x-ray. Lactic acid also elevated at 2.40 Patient was placed on IV fluid per sepsis protocol, IV antibiotics and steroid. He has been admitted with pneumonia possibly secondary to COVID-19. 1) Bilateral pneumonia Current Visit: Yes Status: Acute Plan to address problem: Patient started on empiric IV antibiotics. We will await culture results. He however tested positive for COVID-19 few days ago. (2) Acute respiratory failure due to COVID-19 Current Visit: Yes Status: Acute Plan to address problem: Possibly due to the Covid pneumonia. Patient placed on oxygen by nasal cannula and will keep O2 saturation greater or equal to 94%. We will continue on IV antibiotics, placed on IV steroid. Patient also placed on isolation precautions. Infectious disease has been consulted for evaluation. (3) Sepsis Current Visit: Yes Status: Acute Plan to address problem: Secondary to the underlying pneumonia. Patient has been given some IV fluid and IV antibiotics. (4) DVT prophylaxis Current Visit: Yes Status: Acute Plan to address problem: Patient placed on subcutaneous Lovenox. (5) Full code status Current Visit: Yes Status: Acute Plan to address problem: Patient is full code. 07/09/2020; patient is admitted for sepsis secondary to Covid-19 pneumonia versus bacterial pneumonia. Patient is on IV Decadron and ID is consulted for remdesivir treatment. Patient is still short of breath, on 10 L of high flow oxygen. 07/10/2020; patient is on high flow oxygen, hyper etc. secondary to COVID-19 pneumonia versus bacterial pneumonia. Continue with IV antibiotics, remdesivir and Decadron. Pulmonary and ID consult appreciated. Patient is on intermediate dose of Lovenox for COVID-19 pneumonia. 12/23: Continue to wean high flow as tolerated. Continue COVID-19 protocol per [facility] policy. ID and pulmonary input noted. 07/12: Continue current management wean as tolerated. Continues on remdesivir and Decadron. We will give a dose of Lasix today. Continue to monitor I's and O's. Patient wants cough suppressant discussed the effectiveness of good cough to help keep the airways open. Trial of Robitussin for comfort measures. Patient remains critically ill. We will also check a serum muscularity we will add some vitamins supplementation. 07/13; still with fever, unfortunately appears that the oxygen demand went up. Patient received a dose of Lasix yesterday. Cough is slightly improving. We will continue current management. Prognosis remains guarded 07/14: Continue supportive care, will give additional lasix today. Oxygen FIO2 down to 80% with sat 94% 07/15: Continue supportive care. Will hold off on Lasix today and repeat may be tomorrow. Remains on high flow oxygen at this time. Prognosis is still guarded The high probability of a clinically significant, sudden or life threatening deterioration of the [pulmonary] system(s) required my full and direct attention, intervention and personal management. The aggregate critical care time was [35] minutes. This time is in addition to time spent performing reported procedures but includes the following: [x] Data Review and interpretation [x] Patient assessment and monitoring of vital signs [x] Documentation [x] Medication orders and management History Interval history: Patient seen and examined lying prone today still with shortness of breath on high flow. Hospitalist Physical - Physical exam Narrative exam: Still with mild respiratory distress on high flow lying down prone on bed The patient appeared well nourished and normally developed. Vital signs as documented. Head exam is unremarkable. No scleral icterus . Neck is without jugular venous distension, thyromegaly, or carotid bruits. Lungs are clear to auscultation. Cardiac exam reveals regular rate and Rhythm. Abdominal exam reveals normal bowel sounds, nontender, no organomegaly. Extremities are nonedematous and both femoral and pedal pulses are normal. [employer]: Alert and oriented 3. No focal weakness. - Constitutional Vitals: Temp Pulse Resp BP Pulse Ox 98.8 F 63 19 143/86 96 07/15/20 04:45 07/15/20 04:45 07/15/20 04:45 07/15/20 04:45 07/15/20 08:00 General appearance: Present: no acute distress, well-nourished Results - Labs CBC & Chem 7: 07/13/20 04:26 07/13/20 04:26 Labs: Laboratory Last Values WBC 10.6 K/mm3 (4.5-11.0) 07/13/20 04:26 RBC 4.36 M/mm3 (3.65-5.03) 07/13/20 04:26 Hgb 13.7 gm/dl (11.8-15.2) 07/13/20 04:26 Hct 40.8 % (35.5-45.6) 07/13/20 04:26 MCV 94 fl (84-94) 07/13/20 04:26 MCH 31 pg (28-32) 07/13/20 04:26 MCHC 34 % (32-34) 07/13/20 04:26 RDW 12.4 % (13.2-15.2) L 07/13/20 04:26 Plt Count 309 K/mm3 (140-440) 07/13/20 04:26 Lymph % (Auto) 6.7 % (13.4-35.0) L 07/10/20 04:52 [place] % (Auto) 3.8 % (0.0-7.3) 07/10/20 04:52 Eos % (Auto) 0.0 % (0.0-4.3) 07/10/20 04:52 Baso % (Auto) 0.3 % (0.0-1.8) 07/10/20 04:52 Lymph # (Auto) 0.8 K/mm3 (1.2-5.4) L 07/10/20 04:52 [place] # (Auto) 0.4 K/mm3 (0.0-0.8) 07/10/20 04:52 Eos # (Auto) 0.0 K/mm3 (0.0-0.4) 07/10/20 04:52 Baso # (Auto) 0.0 K/mm3 (0.0-0.1) 07/10/20 04:52 Seg Neutrophils % 89.2 % (40.0-70.0) H 07/10/20 04:52 Seg Neutrophils # 10.1 K/mm3 (1.8-7.7) H 07/10/20 04:52 PT 13.3 Sec. (12.2-14.9) 07/09/20 06:00 INR 1.03 (0.87-1.13) 07/09/20 06:00 D-Dimer 4581.64 ng/mlDDU (0-234) H 07/12/20 07:19 Sodium 136 mmol/L (137-145) L 07/13/20 04:26 Potassium 4.2 mmol/L (3.6-5.0) D 07/13/20 04:26 Chloride 98.8 mmol/L (98-107) 07/13/20 04:26 Carbon Dioxide 25 mmol/L (22-30) 07/13/20 04:26 Anion Gap 16 mmol/L 07/13/20 04:26 BUN 18 mg/dL (9-20) 07/13/20 04:26 Creatinine 0.7 mg/dL (0.8-1.3) L 07/13/20 04:26 Estimated GFR > 60 ml/min 07/13/20 04:26 BUN/Creatinine Ratio 26 % 07/13/20 04:26 Glucose 119 mg/dL (75-100) H 07/13/20 04:26 Osmolality 288 Mosm/kg 07/12/20 13:42 Lactic Acid 1.00 mmol/L (0.7-2.0) 07/08/20 20:58 Calcium 8.9 mg/dL (8.4-10.2) 07/13/20 04:26 Ferritin > 950.0 ng/mL (30.0-300.0) H 07/12/20 07:19 Total Bilirubin 0.20 mg/dL (0.1-1.2) 07/11/20 04:36 Direct Bilirubin < 0.2 mg/dL (0-0.2) 07/11/20 04:36 Indirect Bilirubin 0.0 mg/dL 07/11/20 04:36 AST 33 units/L (5-40) 07/11/20 04:36 ALT 26 units/L (7-56) 07/11/20 04:36 Alkaline Phosphatase 51 units/L (35-129) 07/11/20 04:36 Lactate Dehydrogenase 406 units/L (91-180) H 07/12/20 07:19 C-Reactive Protein 11.10 mg/dL (0.00-1.30) H 07/12/20 07:19 Total Protein 6.3 g/dL (6.3-8.2) D 07/11/20 04:36 Albumin 3.2 g/dL (3.9-5) L 07/11/20 04:36 Albumin/Globulin Ratio 1.0 % 07/11/20 04:36 Procalcitonin 0.22 ng/mL (<0.15) 07/08/20 17:38 Urine Color [place] (Yellow) 07/08/20 18:30 Urine Turbidity Clear (Clear) 07/08/20 18:30 Urine pH 5.0 (5.0-7.0) 07/08/20 18:30 Ur Specific [place] 1.027 (1.003-1.030) 07/08/20 18:30 Urine Protein >500 mg/dL (Negative) 07/08/20 18:30 Urine Glucose (UA) Neg mg/dL (Negative) 07/08/20 18:30 Urine Ketones Neg mg/dL (Negative) 07/08/20 18:30 Urine Blood Neg (Negative) 07/08/20 18:30 Urine Nitrite Neg (Negative) 07/08/20 18:30 Urine Bilirubin Neg (Negative) 07/08/20 18:30 Urine Urobilinogen 4.0 mg/dL (<2.0) 07/08/20 18:30 Ur Leukocyte Esterase Neg (Negative) 07/08/20 18:30 Urine WBC (Auto) 2.0 /HPF (0.0-6.0) 07/08/20 18:30 Urine RBC (Auto) 2.0 /HPF (0.0-6.0) 07/08/20 18:30 U Epithel Cells (Auto) 1.0 /HPF (0-13.0) 07/08/20 18:30 Urine Mucus Few /HPF 07/08/20 18:30 Nasal Screen MRSA (PCR) Negative (Negative) 07/11/20 18:05 Coronavirus (PCR) Positive (Negative) A 07/09/20 08:38 Qiu/IV: Voiding Method Urinal IV Catheter Type [Right Peripheral IV Antecubital] IV Catheter Type [Left Peripheral IV Antecubital] Active Medications - Current Medications Current Medications: Generic Name Dose Route Start Last Admin Trade Name Freq PRN Reason Stop Dose Admin Acetaminophen 650 mg 07/08/20 21:33 07/12/20 15:29 Acetaminophen 325 Mg Tab PO 650 mg Q4H PRN Administration Pain MILD(1-3)/Fever >100.5/MORENO Ascorbic Acid 1,000 mg 07/12/20 10:00 07/15/20 09:43 Ascorbic Acid 500 Mg Tab PO 1,000 mg BID BRIANNA Administration Cholecalciferol 5,000 unit 07/12/20 10:00 07/15/20 09:44 Cholecalciferol (Vit D3) 5,000 Unit Tab PO 5,000 unit DAILY BRIANNA Administration Dexamethasone 6 mg 07/10/20 10:00 07/15/20 09:43 Dexamethasone 4 Mg Tab PO 07/17/20 10:01 6 mg DAILY BRIANNA Administration Enoxaparin Sodium 40 mg 07/10/20 10:00 07/15/20 09:43 Enoxaparin 40 Mg/0.4 Ml Inj SUB-Q 40 mg BID BRIANNA Administration Protocol Guaifenesin 200 mg 07/14/20 22:07 07/14/20 23:00 Guaifenesin 100 Mg/5 Ml Oral Liqd PO 200 mg Q4H PRN Administration Cough Magnesium Hydroxide 30 ml 07/08/20 21:33 Magnesium Hydroxide (Mom) Oral Liqd Udc PO Q4H PRN Constipation Ondansetron HCl 4 mg 07/08/20 21:33 07/09/20 04:37 Ondansetron 4 Mg/2 Ml Inj IV 4 mg Q8H PRN Administration Nausea And Vomiting Oxycodone HCl 5 mg 07/09/20 17:00 07/10/20 17:13 Oxycodone 5 Mg Tab PO 5 mg Q6H PRN Administration Pain, Moderate (4-6) Pseudoephedrine/Acetam/Chlorphenir 15 ml 07/09/20 12:00 07/12/20 15:29 Guaifenesin/Codeine 100-10mg Oral Liqd 5 Ml PO 15 ml Q4H PRN Administration Cough Sodium Chloride 10 ml 07/08/20 22:00 07/15/20 09:44 Sodium Chloride 0.9% 10 Ml Flush Syringe IV 10 ml BID BRIANNA Administration Sodium Chloride 10 ml 07/08/20 21:33 Sodium Chloride 0.9% 10 Ml Flush Syringe IV PRN PRN LINE FLUSH Zinc Sulfate 220 mg 07/12/20 10:00 07/15/20 09:43 Zinc Sulfate 220 Mg Cap PO 220 mg QDAY BRIANNA Administration Nutrition/Malnutrition Assess - Dietary Evaluation Nutrition/Malnutrition Findings: Nutrition Notes Start: 07/12/20 10:48 Freq: Status: Active Protocol: Document 07/12/20 10:49 (Rec: 07/12/20 10:55 [id number]) Nutrition Notes Need for Assessment generated from: screen operator,MST Initial or Follow up Brief Note Current Diagnosis Sepsis,Hypertension Other Pertinent Diagnosis COVID, pneuumonia Current Diet Cardiac Subjective/Other Information RN screen for MST. Pt did not answer phone x2. Per chart, pt ate 75% of breakfast 07/11. Nutrition Intervention Follow-Up By: 07/16/20 Additional Comments FU for MST assessment
--- NOTE | 2020-07-15 15:19 | Progress Note ---
Assessment and Plan Cultures: SARS CoV2 PCR: Positive Blood culture: No growth A/P: 53-year-old male with hypertension: #Bilateral pneumonia: Secondary to COVID-19. Inflammatory markers elevated. Not improving. D-dimer now 4581. #Acute hypoxic respiratory failure: On HFNC Recs: -Evaluation for DVT/PE -IV/PO Dexamethasone 6 mg daily x 10 days -Completed remdesivir -prophylactic anticoagulation based on d-dimer per hospital protocol -trend ferritin, LDH, d-dimer, CRP every 2-3 days for risk stratification and to assess disease progression -ordered today Dr. Niraj dominguez tomorrow Jessica Peace MD [facility] ([facility]) Office [phone] Subjective Date of service: 07/15/20 Principal diagnosis: Covid Interval history: Remains on high flow nasal cannula, 100%, 25 L, no fever. Objective - Exam Narrative Exam: Deferred to minimize COVID-19 transmission in the setting of pandemic. - Constitutional Vitals: Vital Signs Temp Pulse Resp BP Pulse Ox 98.8 F 63 19 143/86 96 07/15/20 04:45 07/15/20 04:45 07/15/20 04:45 07/15/20 04:45 07/15/20 08:00 Temperature -Last 24 Hours Temperature 98.8 F Temperature 98.5 F Temperature 99.1 F - Labs CBC & Chem 7: 07/13/20 04:26 07/13/20 04:26
--- NOTE | 2020-07-15 20:25 | Progress Note ---
Assessment and Plan Imp: 1. Covid-19/Viral pneumonia/ARDS 2. Acute respiratory failure, hypoxia 3. AKILAH, better Rec: 1. Decadron x 10 days 2. Remdesivir x 5 days 3. Lovenox BID for VTE PPx; CTA chest negative for PE 4. Avoid volume overload 5. Proning as tolerated 6. Incentive Sigifredo 10x per hour while awake 7. Wean FiO2, then flow, to keep sats 88% or > 8. Trend inflammatory markers 9. Complex decision-making Plan of care reviewed w/ patient, he understands/agrees Subjective Date of service: 07/15/20 Principal diagnosis: Covid Interval history: No events. He is on 100% FiO2 and 35LPM. SOB may be a little better. He is currently proning and using Incentive Sigifredo. Cough similar. Active Medications Acetaminophen (Acetaminophen 325 Mg Tab) 650 mg PO Q4H PRN PRN Reason: Pain MILD(1-3)/Fever >100.5/MORENO Last Admin: 07/12/20 15:29 Dose: 650 mg Documented by: Ascorbic Acid (Ascorbic Acid 500 Mg Tab) 1,000 mg PO BID [facility] Last Admin: 07/15/20 09:43 Dose: 1,000 mg Documented by: Cholecalciferol (Cholecalciferol (Vit D3) 5,000 Unit Tab) 5,000 unit PO DAILY [facility] Last Admin: 07/15/20 09:44 Dose: 5,000 unit Documented by: Dexamethasone (Dexamethasone 4 Mg Tab) 6 mg PO DAILY [facility] Stop: 07/17/20 10:01 Last Admin: 07/15/20 09:43 Dose: 6 mg Documented by: Enoxaparin Sodium (Enoxaparin 40 Mg/0.4 Ml Inj) 40 mg SUB-Q BID [facility]; Protocol Last Admin: 07/15/20 09:43 Dose: 40 mg Documented by: Guaifenesin (Guaifenesin 100 Mg/5 Ml Oral Liqd) 200 mg PO Q4H PRN PRN Reason: Cough Last Admin: 07/14/20 23:00 Dose: 200 mg Documented by: Magnesium Hydroxide (Magnesium Hydroxide (Mom) Oral Liqd Udc) 30 ml PO Q4H PRN PRN Reason: Constipation Ondansetron HCl (Ondansetron 4 Mg/2 Ml Inj) 4 mg IV Q8H PRN PRN Reason: Nausea And Vomiting Last Admin: 12/21/20 04:37 Dose: 4 mg Documented by: Oxycodone HCl (Oxycodone 5 Mg Tab) 5 mg PO Q6H PRN PRN Reason: Pain, Moderate (4-6) Last Admin: 07/10/20 17:13 Dose: 5 mg Documented by: Pseudoephedrine/Acetam/Chlorphenir (Guaifenesin/Codeine 100-10mg Oral Liqd 5 Ml) 15 ml PO Q4H PRN PRN Reason: Cough Last Admin: 07/12/20 15:29 Dose: 15 ml Documented by: Sodium Chloride (Sodium Chloride 0.9% 10 Ml Flush Syringe) 10 ml IV BID [facility] Last Admin: 07/15/20 09:44 Dose: 10 ml Documented by: Sodium Chloride (Sodium Chloride 0.9% 10 Ml Flush Syringe) 10 ml IV PRN PRN PRN Reason: LINE FLUSH Zinc Sulfate (Zinc Sulfate 220 Mg Cap) 220 mg PO QDAY [facility] Last Admin: 07/15/20 09:43 Dose: 220 mg Documented by: Objective Vital Signs - 12hr 07/15/20 16:37 Temperature 99.2 F Pulse Rate 79 Respiratory 18 Rate Blood Pressure 104/72 O2 Sat by Pulse 99 Oximetry Constitutional: alert, other (critically ill on HFNC) Eyes: non-icteric ENT: oropharynx moist Neck: supple Effort: normal Ascultation: Bilateral: clear Cardiovascular: regular rate and rhythm (no mrg) Gastrointestinal: normoactive bowel sounds, soft, non-distended Integumentary: normal Extremities: no cyanosis, no edema, pink and warm Neurologic: normal mental status, non-focal exam Psychiatric: mood appropriate, affect normal CBC and BMP: 07/13/20 04:26 07/13/20 04:26 ABG, PT/INR, D-dimer: PT/INR, D-dimer PT 13.3 Sec. (12.2-14.9) 07/09/20 06:00 INR 1.03 (0.87-1.13) 07/09/20 06:00 D-Dimer 4581.64 ng/mlDDU (0-234) H 07/12/20 07:19 Abnormal lab findings: Abnormal Labs 07/08/20 07/08/20 07/08/20 17:38 17:38 17:38 WBC Hgb 16.1 H Hct 47.8 H MCV 95 H RDW 12.4 L Lymph % (Auto) 12.0 L Lymph # (Auto) 1.0 L Seg Neutrophils % 83.6 H Seg Neutrophils # D-Dimer 284.74 H Sodium Potassium Chloride BUN Creatinine Glucose Lactic Acid 2.40 H* Ferritin AST Lactate Dehydrogenase C-Reactive Protein Total Protein Albumin Coronavirus (PCR) 07/08/20 07/08/20 07/08/20 17:38 17:38 17:38 WBC Hgb Hct MCV RDW Lymph % (Auto) Lymph # (Auto) Seg Neutrophils % Seg Neutrophils # D-Dimer Sodium 133 L Potassium Chloride 92.8 L BUN 22 H Creatinine Glucose 131 H 128 H Lactic Acid Ferritin > 2000.0 H AST 56 H Lactate Dehydrogenase 604 H C-Reactive Protein 29.00 H Total Protein 8.4 H Albumin 3.5 L Coronavirus (PCR) 07/09/20 07/09/20 07/09/20 06:00 06:00 08:38 WBC Hgb Hct MCV RDW 12.3 L Lymph % (Auto) 5.4 L Lymph # (Auto) 0.4 L Seg Neutrophils % 89.4 H Seg Neutrophils # D-Dimer Sodium Potassium Chloride BUN 23 H Creatinine Glucose 179 H Lactic Acid Ferritin AST Lactate Dehydrogenase C-Reactive Protein Total Protein Albumin Coronavirus (PCR) Positive A 07/10/20 07/10/20 07/10/20 04:52 04:52 14:59 WBC 11.3 H Hgb Hct MCV RDW 12.3 L Lymph % (Auto) 6.7 L Lymph # (Auto) 0.8 L Seg Neutrophils % 89.2 H Seg Neutrophils # 10.1 H D-Dimer 371.35 H Sodium 136 L Potassium Chloride BUN Creatinine Glucose 134 H Lactic Acid Ferritin AST Lactate Dehydrogenase C-Reactive Protein Total Protein Albumin Coronavirus (PCR) 07/10/20 07/10/20 07/11/20 14:59 14:59 04:36 WBC Hgb Hct MCV RDW Lymph % (Auto) Lymph # (Auto) Seg Neutrophils % Seg Neutrophils # D-Dimer Sodium 136 L Potassium 5.4 H Chloride BUN Creatinine Glucose 140 H Lactic Acid Ferritin 2974.0 H AST Lactate Dehydrogenase 440 H C-Reactive Protein 8.30 H Total Protein Albumin 3.2 L Coronavirus (PCR) 07/12/20 07/12/20 07/12/20 07:19 07:19 07:19 WBC Hgb Hct MCV RDW Lymph % (Auto) Lymph # (Auto) Seg Neutrophils % Seg Neutrophils # D-Dimer 4581.64 H Sodium Potassium Chloride BUN Creatinine Glucose Lactic Acid Ferritin > 950.0 H AST Lactate Dehydrogenase 406 H C-Reactive Protein 11.10 H Total Protein Albumin Coronavirus (PCR) 07/13/20 07/13/20 04:26 04:26 WBC Hgb Hct MCV RDW 12.4 L Lymph % (Auto) Lymph # (Auto) Seg Neutrophils % Seg Neutrophils # D-Dimer Sodium 136 L Potassium Chloride BUN Creatinine 0.7 L Glucose 119 H Lactic Acid Ferritin AST Lactate Dehydrogenase C-Reactive Protein Total Protein Albumin Coronavirus (PCR) Chest x-ray: report reviewed, image reviewed CT scan - chest: report reviewed, image reviewed
[2020-07-16 09:32] LABS: Hematocrit 43.7 % (35.5-45.6); Hemoglobin 14.5 gm/dl (11.8-15.2); Mean Corpuscular HGB Conc 33 % (32-34); Mean Corpuscular Volume 94 fl (84-94); Platelet Count 411 K/mm3 (140-440); Red Blood Count 4.64 M/mm3 (3.65-5.03); Red Cell Distribution Width 12.7 % (13.2-15.2)
[2020-07-16 09:51] LABS: BUN/Creatinine Ratio 23; Blood Urea Nitrogen 21 mg/dL (9-20); Calcium 9.3 mg/dL (8.4-10.2); Hemolysis Index 7
[2020-07-16] MEDS: CHOLECALCIFEROL (VIT D3) 5,000 UNIT TAB PO SCH (10:34)
[2020-07-16] MEDS: ENOXAPARIN 40 MG/0.4 ML INJ SUB-Q SCH ×2 (10:34→20:59)
[2020-07-16] MEDS: DEXAMETHASONE 4 MG TAB PO SCH (10:34)
[2020-07-16] MEDS: ZINC SULFATE 220 MG CAP PO SCH (10:34)
[2020-07-16] MEDS: ASCORBIC ACID 500 MG TAB PO SCH ×2 (10:34→20:59)
[2020-07-16] MEDS ORDERED: FUROSEMIDE 20 MG/2 ML INJ IV NR (12:41)
--- NOTE | 2020-07-16 12:41 | Progress Note ---
Assessment and Plan 54 y/o male with acute respiratory failure found to be COVID positive. Prone as tolerated during the day, and sleep prone at night. Will give lasix 20mg IV x1 again today. I/O documented now, not sure how accurate this is. Agree with steroids, Remdesivir has been started. May need longer course of steroids if not able to wean HFNC. Slated to end tomorrow. Wean FiO2 for sats >88% Please do not give IVF's unless absolutely needed. Please repeat chemistry to follow up K and renal function. Guarded prognosis. Subjective Date of service: 07/16/20 Principal diagnosis: Covid Interval history: No acute events. Still on HFNC. Proning himself as tolerated. Per chart was positive over a liter on yesterday. Objective Vital Signs - 12hr 07/16/20 07/16/20 07/16/20 05:21 06:09 12:14 Temperature 97.6 F 98.2 F Pulse Rate 72 90 Respiratory 16 20 Rate Blood Pressure 117/85 123/76 O2 Sat by Pulse 93 99 95 Oximetry Constitutional: alert, other (critically ill on HFNC) Eyes: non-icteric ENT: oropharynx moist Neck: supple Effort: normal Ascultation: Bilateral: clear Cardiovascular: regular rate and rhythm (no mrg) Gastrointestinal: normoactive bowel sounds, soft, non-distended Integumentary: normal Extremities: no cyanosis, no edema, pink and warm Neurologic: normal mental status, non-focal exam Psychiatric: mood appropriate, affect normal CBC and BMP: 07/16/20 08:53 07/16/20 08:53 ABG, PT/INR, D-dimer: PT/INR, D-dimer PT 13.3 Sec. (12.2-14.9) 07/09/20 06:00 INR 1.03 (0.87-1.13) 07/09/20 06:00 D-Dimer 4581.64 ng/mlDDU (0-234) H 07/12/20 07:19 Abnormal lab findings: Abnormal Labs 07/08/20 07/08/20 07/08/20 17:38 17:38 17:38 WBC Hgb 16.1 H Hct 47.8 H MCV 95 H RDW 12.4 L Lymph % (Auto) 12.0 L Lymph # (Auto) 1.0 L Seg Neutrophils % 83.6 H Seg Neutrophils # D-Dimer 284.74 H Sodium Potassium Chloride BUN Creatinine Glucose Lactic Acid 2.40 H* Ferritin AST Lactate Dehydrogenase C-Reactive Protein Total Protein Albumin Coronavirus (PCR) 07/08/20 07/08/20 07/08/20 17:38 17:38 17:38 WBC Hgb Hct MCV RDW Lymph % (Auto) Lymph # (Auto) Seg Neutrophils % Seg Neutrophils # D-Dimer Sodium 133 L Potassium Chloride 92.8 L BUN 22 H Creatinine Glucose 131 H 128 H Lactic Acid Ferritin > 2000.0 H AST 56 H Lactate Dehydrogenase 604 H C-Reactive Protein 29.00 H Total Protein 8.4 H Albumin 3.5 L Coronavirus (PCR) 07/09/20 07/09/20 07/09/20 06:00 06:00 08:38 WBC Hgb Hct MCV RDW 12.3 L Lymph % (Auto) 5.4 L Lymph # (Auto) 0.4 L Seg Neutrophils % 89.4 H Seg Neutrophils # D-Dimer Sodium Potassium Chloride BUN 23 H Creatinine Glucose 179 H Lactic Acid Ferritin AST Lactate Dehydrogenase C-Reactive Protein Total Protein Albumin Coronavirus (PCR) Positive A 07/10/20 07/10/20 07/10/20 04:52 04:52 14:59 WBC 11.3 H Hgb Hct MCV RDW 12.3 L Lymph % (Auto) 6.7 L Lymph # (Auto) 0.8 L Seg Neutrophils % 89.2 H Seg Neutrophils # 10.1 H D-Dimer 371.35 H Sodium 136 L Potassium Chloride BUN Creatinine Glucose 134 H Lactic Acid Ferritin AST Lactate Dehydrogenase C-Reactive Protein Total Protein Albumin Coronavirus (PCR) 07/10/20 07/10/20 07/11/20 14:59 14:59 04:36 WBC Hgb Hct MCV RDW Lymph % (Auto) Lymph # (Auto) Seg Neutrophils % Seg Neutrophils # D-Dimer Sodium 136 L Potassium 5.4 H Chloride BUN Creatinine Glucose 140 H Lactic Acid Ferritin 2974.0 H AST Lactate Dehydrogenase 440 H C-Reactive Protein 8.30 H Total Protein Albumin 3.2 L Coronavirus (PCR) 07/12/20 07/12/20 07/12/20 07:19 07:19 07:19 WBC Hgb Hct MCV RDW Lymph % (Auto) Lymph # (Auto) Seg Neutrophils % Seg Neutrophils # D-Dimer 4581.64 H Sodium Potassium Chloride BUN Creatinine Glucose Lactic Acid Ferritin > 950.0 H AST Lactate Dehydrogenase 406 H C-Reactive Protein 11.10 H Total Protein Albumin Coronavirus (PCR) 07/13/20 07/13/20 07/16/20 04:26 04:26 08:53 WBC Hgb Hct MCV RDW 12.4 L 12.7 L Lymph % (Auto) Lymph # (Auto) Seg Neutrophils % Seg Neutrophils # D-Dimer Sodium 136 L Potassium Chloride BUN Creatinine 0.7 L Glucose 119 H Lactic Acid Ferritin AST Lactate Dehydrogenase C-Reactive Protein Total Protein Albumin Coronavirus (PCR) 07/16/20 08:53 WBC Hgb Hct MCV RDW Lymph % (Auto) Lymph # (Auto) Seg Neutrophils % Seg Neutrophils # D-Dimer Sodium 134 L Potassium Chloride 96.3 L BUN 21 H Creatinine Glucose 136 H Lactic Acid Ferritin AST Lactate Dehydrogenase C-Reactive Protein Total Protein Albumin Coronavirus (PCR)
--- NOTE | 2020-07-16 15:25 | Progress Note ---
Assessment and Plan Cultures: SARS CoV2 PCR: Positive Blood culture: No growth A/P: 53-year-old male with hypertension: #Bilateral pneumonia: Secondary to COVID-19. Inflammatory markers elevated. VTE eval negative #Acute hypoxic respiratory failure: On HFNC Recs: -continue steroids per pulm -completed Remdesivir -prophylactic anticoagulation based on d-dimer per hospital protocol -trend ferritin, LDH, d-dimer, CRP every 2-3 days for risk stratification and to assess disease progression Umang Healy MD, FACP [facility] ([facility] O: [phone] F: [phone] Subjective Date of service: 07/16/20 Principal diagnosis: Covid Interval history: No fever. Remains on HFNC. Objective - Exam Narrative Exam: Physical Exam (reviewed in chart to minimize risk of transmission) Constitutional: deferred Head, Ears, Nose: deferred Eyes: deferred Neck: deferred Oral: deferred Cardiovascular: deferred Respiratory: deferred GI: deferred Musculoskeletal: deferred Skin: deferred Hem/Lymphatic: deferred Psych: deferred Neurological: deferred - Constitutional Vitals: Vital Signs Temp Pulse Resp BP Pulse Ox 98.2 F 90 20 123/76 95 07/16/20 12:14 07/16/20 12:14 07/16/20 12:14 07/16/20 12:14 07/16/20 12:14 Temperature -Last 24 Hours Temperature 98.2 F Temperature 97.6 F Temperature 98.5 F Temperature 99.2 F - Labs CBC & Chem 7: 07/16/20 08:53 07/16/20 08:53 Labs: Abnormal lab results 07/16/20 07/16/20 Range/Units 08:53 08:53 RDW 12.7 L (13.2-15.2) % Sodium 134 L (137-145) mmol/L Chloride 96.3 L (98-107) mmol/L BUN 21 H (9-20) mg/dL Glucose 136 H (75-100) mg/dL
--- NOTE | 2020-07-16 19:01 | Progress Note ---
Assessment and Plan Assessment and plan: 54-year-old male with known history of hypertension who tested Covid positive about 3 days ago presenting to the emergency room today complaining of shortness of breath and generalized weakness over the past few days. Shortness of breath is said to have gotten worse today and therefore decided to report to the emergency room. Upon arrival in the emergency room he had a blood pressure of 96/50, temperature of 1 103 F, tachypneic with an O2 saturation of 76% on room air. He was subsequently placed on oxygen 3 L and oxygen saturation improved to about 100%. Work-up in the emergency room today shows bilateral pneumonia on chest x-ray. Lactic acid also elevated at 2.40 Patient was placed on IV fluid per sepsis protocol, IV antibiotics and steroid. He has been admitted with pneumonia possibly secondary to COVID-19. --Bilateral pneumonia Current Visit: Yes Status: Acute Plan to address problem: DC empiric IV antibiotics. As procalcitonin is negative Viral pneumonia due to positive for COVID-19 -- Acute respiratory failure due to COVID-19 Current Visit: Yes Status: Acute Plan to address problem: Possibly due to the Covid pneumonia. Patient placed on oxygen by nasal cannula and will keep O2 saturation greater or equal to 94%. We will continue on IV antibiotics, placed on IV steroid. Patient also placed on isolation precautions. Infectious disease has been consulted for evaluation. -- Sepsis/COVID-19 pneumonia Current Visit: Yes Status: Acute Plan to address problem: Secondary to the underlying pneumonia. Patient has been given some IV fluid and IV antibiotics. -- DVT prophylaxis Current Visit: Yes Status: Acute Plan to address problem: Patient placed on subcutaneous Lovenox. --Full code status Current Visit: Yes Status: Acute Plan to address problem: Patient is full code. 07/09/2020; patient is admitted for sepsis secondary to Covid-19 pneumonia versus bacterial pneumonia. Patient is on IV Decadron and ID is consulted for remdesivir treatment. Patient is still short of breath, on 10 L of high flow oxygen. 07/10/2020; patient is on high flow oxygen, hyper etc. secondary to COVID-19 p neumonia versus bacterial pneumonia. Continue with IV antibiotics, remdesivir and Decadron. Pulmonary and ID consult appreciated. Patient is on intermediate dose of Lovenox for COVID-19 pneumonia. 12/23: Continue to wean high flow as tolerated. Continue COVID-19 protocol per [facility] policy. ID and pulmonary input noted. 07/12: Continue current management wean as tolerated. Continues on remdesivir and Decadron. We will give a dose of Lasix today. Continue to monitor I's and O's. Patient wants cough suppressant discussed the effectiveness of good cough to help keep the airways open. Trial of Robitussin for comfort measures. Patient remains critically ill. We will also check a serum muscularity we will add some vitamins supplementation. 07/13; still with fever, unfortunately appears that the oxygen demand went up. Patient received a dose of Lasix yesterday. Cough is slightly improving. We will continue current management. Prognosis remains guarded 07/14: Continue supportive care, will give additional lasix today. Oxygen FIO2 down to 80% with sat 94% 07/15: Continue supportive care. Will hold off on Lasix today and repeat may be tomorrow. Remains on high flow oxygen at this time. Prognosis is still guarded The high probability of a clinically significant, sudden or life threatening deterioration of the [pulmonary] system(s) required my full and direct attention, intervention and personal management. The aggregate critical care ignacia e was [35] minutes. This time is in addition to time spent performing reported procedures but includes the following: [x] Data Review and interpretation [x] Patient assessment and monitoring of vital signs [x] Documentation [x] Medication orders and management History Interval history: I have seen and examined the patient at the bedside this morning Patient's chart and medications reviewed Patient feels slightly better No new complaints Vital signs noted Hospitalist Physical - Constitutional Vitals: Temp Pulse Resp BP Pulse Ox 98.1 F 95 H 20 106/75 98 07/16/20 18:00 07/16/20 18:00 07/16/20 18:00 07/16/20 18:00 07/16/20 18:00 General appearance: Present: no acute distress, well-nourished - EENT Eyes: Present: PERRL, EOM intact - Neck Neck: Present: supple, normal ROM - Respiratory Respiratory effort: normal Respiratory: bilateral: diminished, rhonchi, negative: rales, wheezing - Cardiovascular Rhythm: regular Heart Sounds: Present: S1 & S2 - Extremities Extremities: no ischemia, No edema - Abdominal General gastrointestinal: soft, non-tender, non-distended, normal bowel sounds - Integumentary Integumentary: Present: clear, warm - Psychiatric Psychiatric: appropriate mood/affect, cooperative - Neurologic Neurologic: CNII-XII intact, moves all extremities Results - Labs CBC & Chem 7: 07/16/20 08:53 07/16/20 08:53 Labs: Laboratory Last Values WBC 9.3 K/mm3 (4.5-11.0) 07/16/20 08:53 RBC 4.64 M/mm3 (3.65-5.03) 07/16/20 08:53 Hgb 14.5 gm/dl (11.8-15.2) 07/16/20 08:53 Hct 43.7 % (35.5-45.6) 07/16/20 08:53 MCV 94 fl (84-94) 07/16/20 08:53 MCH 31 pg (28-32) 07/16/20 08:53 MCHC 33 % (32-34) 07/16/20 08:53 RDW 12.7 % (13.2-15.2) L 07/16/20 08:53 Plt Count 411 K/mm3 (140-440) 07/16/20 08:53 Lymph % (Auto) 6.7 % (13.4-35.0) L 07/10/20 04:52 [place] % (Auto) 3.8 % (0.0-7.3) 07/10/20 04:52 Eos % (Auto) 0.0 % (0.0-4.3) 07/10/20 04:52 Baso % (Auto) 0.3 % (0.0-1.8) 07/10/20 04:52 Lymph # (Auto) 0.8 K/mm3 (1.2-5.4) L 07/10/20 04:52 [place] # (Auto) 0.4 K/mm3 (0.0-0.8) 07/10/20 04:52 Eos # (Auto) 0.0 K/mm3 (0.0-0.4) 07/10/20 04:52 Baso # (Auto) 0.0 K/mm3 (0.0-0.1) 07/10/20 04:52 Seg Neutrophils % 89.2 % (40.0-70.0) H 07/10/20 04:52 Seg Neutrophils # 10.1 K/mm3 (1.8-7.7) H 07/10/20 04:52 PT 13.3 Sec. (12.2-14.9) 07/09/20 06:00 INR 1.03 (0.87-1.13) 07/09/20 06:00 D-Dimer 4581.64 ng/mlDDU (0-234) H 07/12/20 07:19 Sodium 134 mmol/L (137-145) L 07/16/20 08:53 Potassium 4.2 mmol/L (3.6-5.0) 07/16/20 08:53 Chloride 96.3 mmol/L (98-107) L 07/16/20 08:53 Carbon Dioxide 30 mmol/L (22-30) 07/16/20 08:53 Anion Gap 12 mmol/L 07/16/20 08:53 BUN 21 mg/dL (9-20) H 07/16/20 08:53 Creatinine 0.9 mg/dL (0.8-1.3) 07/16/20 08:53 Estimated GFR > 60 ml/min 07/16/20 08:53 BUN/Creatinine Ratio 23 % 07/16/20 08:53 Glucose 136 mg/dL (75-100) H 07/16/20 08:53 Osmolality 288 Mosm/kg 07/12/20 13:42 Lactic Acid 1.00 mmol/L (0.7-2.0) 07/08/20 20:58 Calcium 9.3 mg/dL (8.4-10.2) 07/16/20 08:53 Ferritin > 950.0 ng/mL (30.0-300.0) H 07/12/20 07:19 Total Bilirubin 0.20 mg/dL (0.1-1.2) 07/11/20 04:36 Direct Bilirubin < 0.2 mg/dL (0-0.2) 07/11/20 04:36 Indirect Bilirubin 0.0 mg/dL 07/11/20 04:36 AST 33 units/L (5-40) 07/11/20 04:36 ALT 26 units/L (7-56) 07/11/20 04:36 Alkaline Phosphatase 51 units/L (35-129) 07/11/20 04:36 Lactate Dehydrogenase 406 units/L (91-180) H 07/12/20 07:19 C-Reactive Protein 11.10 mg/dL (0.00-1.30) H 07/12/20 07:19 Total Protein 6.3 g/dL (6.3-8.2) D 07/11/20 04:36 Albumin 3.2 g/dL (3.9-5) L 07/11/20 04:36 Albumin/Globulin Ratio 1.0 % 07/11/20 04:36 Procalcitonin 0.22 ng/mL (<0.15) 07/08/20 17:38 Urine Color Jaclyn (Yellow) 07/08/20 18:30 Urine Turbidity Clear (Clear) 07/08/20 18:30 Urine pH 5.0 (5.0-7.0) 07/08/20 18:30 Ur Specific [place] 1.027 (1.003-1.030) 07/08/20 18:30 Urine Protein >500 mg/dL (Negative) 07/08/20 18:30 Urine Glucose (UA) Neg mg/dL (Negative) 07/08/20 18:30 Urine Ketones Neg mg/dL (Negative) 07/08/20 18:30 Urine Blood Neg (Negative) 07/08/20 18:30 Urine Nitrite Neg (Negative) 07/08/20 18:30 Urine Bilirubin Neg (Negative) 07/08/20 18:30 Urine Urobilinogen 4.0 mg/dL (<2.0) 07/08/20 18:30 Ur Leukocyte Esterase Neg (Negative) 07/08/20 18:30 Urine WBC (Auto) 2.0 /HPF (0.0-6.0) 07/08/20 18:30 Urine RBC (Auto) 2.0 /HPF (0.0-6.0) 07/08/20 18:30 U Epithel Cells (Auto) 1.0 /HPF (0-13.0) 07/08/20 18:30 Urine Mucus Few /HPF 07/08/20 18:30 Nasal Screen MRSA (PCR) Negative (Negative) 07/11/20 18:05 Coronavirus (PCR) Positive (Negative) A 07/09/20 08:38 Qiu/IV: Voiding Method Urinal IV Catheter Type [Right Peripheral IV Antecubital] IV Catheter Type [Left Peripheral IV Antecubital] Active Medications - Current Medications Current Medications: Generic Name Dose Route Start Last Admin Trade Name Freq PRN Reason Stop Dose Admin Acetaminophen 650 mg 07/08/20 21:33 07/12/20 15:29 Acetaminophen 325 Mg Tab PO 650 mg Q4H PRN Administration Pain MILD(1-3)/Fever >100.5/MORENO Ascorbic Acid 1,000 mg 07/12/20 10:00 07/16/20 10:34 Ascorbic Acid 500 Mg Tab PO 1,000 mg BID BRIANNA Administration Cholecalciferol 5,000 unit 07/12/20 10:00 07/16/20 10:34 Cholecalciferol (Vit D3) 5,000 Unit Tab PO 5,000 unit DAILY BRIANNA Administration Dexamethasone 6 mg 07/10/20 10:00 07/16/20 10:34 Dexamethasone 4 Mg Tab PO 07/17/20 10:01 6 mg DAILY BRIANNA Administration Enoxaparin Sodium 40 mg 07/10/20 10:00 07/16/20 10:34 Enoxaparin 40 Mg/0.4 Ml Inj SUB-Q 40 mg BID BRIANNA Administration Protocol Guaifenesin 200 mg 07/14/20 22:07 07/14/20 23:00 Guaifenesin 100 Mg/5 Ml Oral Liqd PO 200 mg Q4H PRN Administration Cough Magnesium Hydroxide 30 ml 07/08/20 21:33 Magnesium Hydroxide (Mom) Oral Liqd Udc PO Q4H PRN Constipation Ondansetron HCl 4 mg 07/08/20 21:33 07/09/20 04:37 Ondansetron 4 Mg/2 Ml Inj IV 4 mg Q8H PRN Administration Nausea And Vomiting Oxycodone HCl 5 mg 07/09/20 17:00 07/10/20 17:13 Oxycodone 5 Mg Tab PO 5 mg Q6H PRN Administration Pain, Moderate (4-6) Pseudoephedrine/Acetam/Chlorphenir 15 ml 07/09/20 12:00 07/12/20 15:29 Guaifenesin/Codeine 100-10mg Oral Liqd 5 Ml PO 15 ml Q4H PRN Administration Cough Sodium Chloride 10 ml 07/08/20 22:00 07/16/20 10:35 Sodium Chloride 0.9% 10 Ml Flush Syringe IV 10 ml BID BRIANNA Administration Sodium Chloride 10 ml 07/08/20 21:33 Sodium Chloride 0.9% 10 Ml Flush Syringe IV PRN PRN LINE FLUSH Zinc Sulfate 220 mg 07/12/20 10:00 07/16/20 10:34 Zinc Sulfate 220 Mg Cap PO 220 mg QDAY BRIANNA Administration Nutrition/Malnutrition Assess - Dietary Evaluation Nutrition/Malnutrition Findings: Nutrition Notes Start: 07/12/20 10:48 Freq: Status: Active Protocol: Document 07/16/20 15:46 LINN (Rec: 07/16/20 16:07 KERWINALL [id number]) Nutrition Notes Initial or Follow up Assessment Current Diagnosis Sepsis Other Pertinent Diagnosis COVID-19 (+), Bilat pneu Current Diet Cardiac Labs/Tests Na 134 Pertinent Medications Lasix Height 5 ft 9 in Weight 81.647 kg [place] Body Weight (kg) 72.72 BMI 26.6 Weight Status Overweight Subjective/Other Information Unable to reach pt via phone at 14:22. He has consumed 71% of meals since last assessment. Percent of energy/protein needs met: 74% energy 93% pro Burn Absent Trauma Absent Current % PO Fair (50-74%) Minimum of two criteria No #1 Nutrition Diagnosis No nutrition diagnosis at this time As Evidenced by Signs and Symptoms PO intakes almost meeting 75% estimated energy and pro needs , wt is acceptable Is patient on ventilator? No Is Patient Ambulatory and/or Out of Bed Yes REE-([facility]-ambulatory/OOB) [ 2140.905 [id number]] Calculation Used for Recommendations [facility] Additional Notes Pro needs 0.8-1g/k-82g/ day Fluid needs 1ml/kcal Nutrition Intervention Change Diet Order: Continue current diet order Goal #1 PO intakes to meet at least 75 % energy and pro needs Follow-Up By: 07/19/20 Additional Comments F/U: wt loss assessment, intakes
[2020-07-16] MEDS: ONDANSETRON 4 MG/2 ML INJ IV PRN (21:00)
[2020-07-17 00:42] LABS: C-Reactive Protein 7.3 mg/dL (0.00-1.30)
--- NOTE | 2020-07-17 09:51 | Progress Note ---
Assessment and Plan 54 y/o male with acute respiratory failure found to be COVID positive. Prone as tolerated during the day, and sleep prone at night. Will give lasix 20mg IV x1 again today. Agree with steroids, Remdesivir has been started. Given improvement in oxygen, will hold on further steroids. Wean FiO2 for sats >88% Please do not give IVF's unless absolutely needed. Please repeat chemistry to follow up K and renal function. Not checked today. Guarded prognosis. Subjective Date of service: 07/17/20 Principal diagnosis: Covid Interval history: Down to 30 liters and 70%. Good sats. Proning during the day and at night. No other acute issues. Objective Vital Signs - 12hr 07/16/20 07/16/20 07/17/20 22:00 23:08 05:47 Temperature 97.8 F Pulse Rate 87 Pulse Rate [ 62 From Monitor] Respiratory 20 Rate Blood Pressure 109/67 O2 Sat by Pulse 99 98 98 Oximetry 07/17/20 07/17/20 06:41 08:39 Temperature Pulse Rate Pulse Rate [ From Monitor] Respiratory Rate Blood Pressure O2 Sat by Pulse 99 98 Oximetry Constitutional: alert, other (critically ill on HFNC) Eyes: non-icteric ENT: oropharynx moist Neck: supple Effort: normal Ascultation: Bilateral: clear Cardiovascular: regular rate and rhythm (no mrg) Gastrointestinal: normoactive bowel sounds, soft, non-distended Integumentary: normal Extremities: no cyanosis, no edema, pink and warm Neurologic: normal mental status, non-focal exam Psychiatric: mood appropriate, affect normal CBC and BMP: 07/16/20 08:53 07/16/20 08:53 ABG, PT/INR, D-dimer: PT/INR, D-dimer PT 13.3 Sec. (12.2-14.9) 07/09/20 06:00 INR 1.03 (0.87-1.13) 07/09/20 06:00 D-Dimer 1116.17 ng/mlDDU (0-234) H 07/16/20 21:15 Abnormal lab findings: Abnormal Labs 07/08/20 07/08/20 07/08/20 17:38 17:38 17:38 WBC Hgb 16.1 H Hct 47.8 H MCV 95 H RDW 12.4 L Lymph % (Auto) 12.0 L Lymph # (Auto) 1.0 L Seg Neutrophils % 83.6 H Seg Neutrophils # D-Dimer 284.74 H Sodium Potassium Chloride BUN Creatinine Glucose Lactic Acid 2.40 H* Ferritin AST Lactate Dehydrogenase C-Reactive Protein Total Protein Albumin Coronavirus (PCR) 07/08/20 07/08/20 07/08/20 17:38 17:38 17:38 WBC Hgb Hct MCV RDW Lymph % (Auto) Lymph # (Auto) Seg Neutrophils % Seg Neutrophils # D-Dimer Sodium 133 L Potassium Chloride 92.8 L BUN 22 H Creatinine Glucose 131 H 128 H Lactic Acid Ferritin > 2000.0 H AST 56 H Lactate Dehydrogenase 604 H C-Reactive Protein 29.00 H Total Protein 8.4 H Albumin 3.5 L Coronavirus (PCR) 07/09/20 07/09/20 07/09/20 06:00 06:00 08:38 WBC Hgb Hct MCV RDW 12.3 L Lymph % (Auto) 5.4 L Lymph # (Auto) 0.4 L Seg Neutrophils % 89.4 H Seg Neutrophils # D-Dimer Sodium Potassium Chloride BUN 23 H Creatinine Glucose 179 H Lactic Acid Ferritin AST Lactate Dehydrogenase C-Reactive Protein Total Protein Albumin Coronavirus (PCR) Positive A 07/10/20 07/10/20 07/10/20 04:52 04:52 14:59 WBC 11.3 H Hgb Hct MCV RDW 12.3 L Lymph % (Auto) 6.7 L Lymph # (Auto) 0.8 L Seg Neutrophils % 89.2 H Seg Neutrophils # 10.1 H D-Dimer 371.35 H Sodium 136 L Potassium Chloride BUN Creatinine Glucose 134 H Lactic Acid Ferritin AST Lactate Dehydrogenase C-Reactive Protein Total Protein Albumin Coronavirus (PCR) 07/10/20 07/10/20 07/11/20 14:59 14:59 04:36 WBC Hgb Hct MCV RDW Lymph % (Auto) Lymph # (Auto) Seg Neutrophils % Seg Neutrophils # D-Dimer Sodium 136 L Potassium 5.4 H Chloride BUN Creatinine Glucose 140 H Lactic Acid Ferritin 2974.0 H AST Lactate Dehydrogenase 440 H C-Reactive Protein 8.30 H Total Protein Albumin 3.2 L Coronavirus (PCR) 07/12/20 07/12/20 07/12/20 07:19 07:19 07:19 WBC Hgb Hct MCV RDW Lymph % (Auto) Lymph # (Auto) Seg Neutrophils % Seg Neutrophils # D-Dimer 4581.64 H Sodium Potassium Chloride BUN Creatinine Glucose Lactic Acid Ferritin > 950.0 H AST Lactate Dehydrogenase 406 H C-Reactive Protein 11.10 H Total Protein Albumin Coronavirus (PCR) 07/13/20 07/13/20 07/16/20 04:26 04:26 08:53 WBC Hgb Hct MCV RDW 12.4 L 12.7 L Lymph % (Auto) Lymph # (Auto) Seg Neutrophils % Seg Neutrophils # D-Dimer Sodium 136 L Potassium Chloride BUN Creatinine 0.7 L Glucose 119 H Lactic Acid Ferritin AST Lactate Dehydrogenase C-Reactive Protein Total Protein Albumin Coronavirus (PCR) 07/16/20 07/16/20 07/16/20 08:53 21:15 21:15 WBC Hgb Hct MCV RDW Lymph % (Auto) Lymph # (Auto) Seg Neutrophils % Seg Neutrophils # D-Dimer 1116.17 H Sodium 134 L Potassium Chloride 96.3 L BUN 21 H Creatinine Glucose 136 H Lactic Acid Ferritin > 2000.0 H AST Lactate Dehydrogenase C-Reactive Protein Total Protein Albumin Coronavirus (PCR) 07/16/20 21:15 WBC Hgb Hct MCV RDW Lymph % (Auto) Lymph # (Auto) Seg Neutrophils % Seg Neutrophils # D-Dimer Sodium Potassium Chloride BUN Creatinine Glucose Lactic Acid Ferritin AST Lactate Dehydrogenase 337 H C-Reactive Protein 7.30 H Total Protein Albumin Coronavirus (PCR)
[2020-07-17] MEDS: ZINC SULFATE 220 MG CAP PO SCH (10:30)
[2020-07-17] MEDS: CHOLECALCIFEROL (VIT D3) 5,000 UNIT TAB PO SCH (10:30)
[2020-07-17] MEDS: ASCORBIC ACID 500 MG TAB PO SCH ×2 (10:30→23:36)
[2020-07-17] MEDS: DEXAMETHASONE 4 MG TAB PO SCH (10:30)
[2020-07-17] MEDS: ENOXAPARIN 40 MG/0.4 ML INJ SUB-Q SCH ×2 (10:30→23:36)
--- NOTE | 2020-07-17 13:58 | Progress Note ---
Assessment and Plan Cultures: SARS CoV2 PCR: Positive Blood culture: No growth A/P: 53-year-old male with hypertension: #Bilateral pneumonia: Secondary to COVID-19. Inflammatory markers elevated. VTE eval negative. #Acute hypoxic respiratory failure: On HFNC Recs: -continue steroids per pulm -completed Remdesivir -prophylactic anticoagulation based on d-dimer per hospital protocol Umang Healy MD, FACP [facility] ([facility] O: [phone] F: [phone] Subjective Date of service: 07/17/20 Principal diagnosis: Covid Interval history: No fever. Remains on HFNC. Objective - Exam Narrative Exam: Physical Exam (reviewed in chart to minimize risk of transmission) Constitutional: deferred Head, Ears, Nose: deferred Eyes: deferred Neck: deferred Oral: deferred Cardiovascular: deferred Respiratory: deferred GI: deferred Musculoskeletal: deferred Skin: deferred Hem/Lymphatic: deferred Psych: deferred Neurological: deferred - Constitutional Vitals: Vital Signs Temp Pulse Resp BP Pulse Ox 97.8 F 87 20 109/67 98 07/17/20 05:47 07/17/20 05:47 07/17/20 05:47 07/17/20 05:47 07/17/20 08:39 Temperature -Last 24 Hours Temperature 97.8 F Temperature 98.6 F Temperature 98.1 F - Labs CBC & Chem 7: 07/16/20 08:53 07/16/20 08:53 Labs: Abnormal lab results 07/16/20 07/16/20 07/16/20 Range/Units 21:15 21:15 21:15 D-Dimer 1116.17 H (0-234) ng/mlDDU Ferritin > 2000.0 H (30.0-300.0) ng/mL Lactate Dehydrogenase 337 H (91-180) units/L C-Reactive Protein 7.30 H (0.00-1.30) mg/dL
--- NOTE | 2020-07-17 20:31 | Progress Note ---
Assessment and Plan Assessment and plan: 54-year-old male with known history of hypertension who tested Covid positive about 3 days ago presenting to the emergency room today complaining of shortness of breath and generalized weakness over the past few days. Shortness of breath is said to have gotten worse today and therefore decided to report to the emergency room. Upon arrival in the emergency room he had a blood pressure of 96/50, temperature of 1 103 F, tachypneic with an O2 saturation of 76% on room air. He was subsequently placed on oxygen 3 L and oxygen saturation improved to about 100%. Work-up in the emergency room today shows bilateral pneumonia on chest x-ray. Lactic acid also elevated at 2.40 Patient was placed on IV fluid per sepsis protocol, IV antibiotics and steroid. He has been admitted with pneumonia possibly secondary to COVID-19. --Bilateral pneumonia Current Visit: Yes Status: Acute Plan to address problem: DC empiric IV antibiotics. As procalcitonin is negative Viral pneumonia due to positive for COVID-19 -- Acute respiratory failure due to COVID-19 Current Visit: Yes Status: Acute Plan to address problem: Possibly due to the Covid pneumonia. Patient placed on oxygen by nasal cannula and will keep O2 saturation greater or equal to 94%. We will continue on IV antibiotics, placed on IV steroid. Patient also placed on isolation precautions. Infectious disease has been consulted for evaluation. -- Sepsis/COVID-19 pneumonia Current Visit: Yes Status: Acute Plan to address problem: Secondary to the underlying pneumonia. Patient has been given some IV fluid and IV antibiotics. -- DVT prophylaxis Current Visit: Yes Status: Acute Plan to address problem: Patient placed on subcutaneous Lovenox. --Full code status Current Visit: Yes Status: Acute Plan to address problem: Patient is full code. 07/09/2020; patient is admitted for sepsis secondary to Covid-19 pneumonia versus bacterial pneumonia. Patient is on IV Decadron and ID is consulted for remdesivir treatment. Patient is still short of breath, on 10 L of high flow oxygen. 07/10/2020; patient is on high flow oxygen, hyper etc. secondary to COVID-19 p neumonia versus bacterial pneumonia. Continue with IV antibiotics, remdesivir and Decadron. Pulmonary and ID consult appreciated. Patient is on intermediate dose of Lovenox for COVID-19 pneumonia. 12/23: Continue to wean high flow as tolerated. Continue COVID-19 protocol per [facility] policy. ID and pulmonary input noted. 07/12: Continue current management wean as tolerated. Continues on remdesivir and Decadron. We will give a dose of Lasix today. Continue to monitor I's and O's. Patient wants cough suppressant discussed the effectiveness of good cough to help keep the airways open. Trial of Robitussin for comfort measures. Patient remains critically ill. We will also check a serum muscularity we will add some vitamins supplementation. 07/13; still with fever, unfortunately appears that the oxygen demand went up. Patient received a dose of Lasix yesterday. Cough is slightly improving. We will continue current management. Prognosis remains guarded 07/14: Continue supportive care, will give additional lasix today. Oxygen FIO2 down to 80% with sat 94% 07/15: Continue supportive care. Will hold off on Lasix today and repeat may be tomorrow. Remains on high flow oxygen at this time. Prognosis is still guarded 07/17; patient is critically ill, on high flow oxygen, worsening inflammatory markers, poor prognosis We will continue current management, consults recommendations followed The high probability of a clinically significant, sudden or life threatening deterioration of the [pulmonary] system(s) required my full and direct attent ion, intervention and personal management. The aggregate critical care time was [35] minutes. This time is in addition to time spent performing reported procedures but includes the following: [x] Data Review and interpretation [x] Patient assessment and monitoring of vital signs [x] Documentation [x] Medication orders and management History Interval history: I have seen and examined the patient at the bedside Strict isolation and PPE protocols followed Patient is sitting up on high flow oxygen Mild distress Vital signs noted Hospitalist Physical - Constitutional Vitals: Temp Pulse Resp BP Pulse Ox 99.0 F 95 H 22 129/90 98 07/17/20 16:53 07/17/20 16:53 07/17/20 16:53 07/17/20 16:53 07/17/20 18:00 General appearance: Present: no acute distress, well-nourished, other (On high flow oxygen) - EENT Eyes: Present: PERRL, EOM intact - Neck Neck: Present: supple, normal ROM - Respiratory Respiratory effort: normal Respiratory: bilateral: diminished, rhonchi, negative: rales, wheezing - Cardiovascular Rhythm: regular Heart Sounds: Present: S1 & S2 - Extremities Extremities: no ischemia, No edema - Abdominal General gastrointestinal: soft, non-tender, non-distended, normal bowel sounds - Integumentary Integumentary: Present: clear, warm - Psychiatric Psychiatric: appropriate mood/affect, cooperative - Neurologic Neurologic: CNII-XII intact, moves all extremities Results - Labs CBC & Chem 7: 07/16/20 08:53 07/16/20 08:53 Labs: Laboratory Last Values WBC 9.3 K/mm3 (4.5-11.0) 07/16/20 08:53 RBC 4.64 M/mm3 (3.65-5.03) 07/16/20 08:53 Hgb 14.5 gm/dl (11.8-15.2) 07/16/20 08:53 Hct 43.7 % (35.5-45.6) 07/16/20 08:53 MCV 94 fl (84-94) 07/16/20 08:53 MCH 31 pg (28-32) 07/16/20 08:53 MCHC 33 % (32-34) 07/16/20 08:53 RDW 12.7 % (13.2-15.2) L 07/16/20 08:53 Plt Count 411 K/mm3 (140-440) 07/16/20 08:53 Lymph % (Auto) 6.7 % (13.4-35.0) L 07/10/20 04:52 [place] % (Auto) 3.8 % (0.0-7.3) 07/10/20 04:52 Eos % (Auto) 0.0 % (0.0-4.3) 07/10/20 04:52 Baso % (Auto) 0.3 % (0.0-1.8) 07/10/20 04:52 Lymph # (Auto) 0.8 K/mm3 (1.2-5.4) L 07/10/20 04:52 [place] # (Auto) 0.4 K/mm3 (0.0-0.8) 07/10/20 04:52 Eos # (Auto) 0.0 K/mm3 (0.0-0.4) 07/10/20 04:52 Baso # (Auto) 0.0 K/mm3 (0.0-0.1) 07/10/20 04:52 Seg Neutrophils % 89.2 % (40.0-70.0) H 07/10/20 04:52 Seg Neutrophils # 10.1 K/mm3 (1.8-7.7) H 07/10/20 04:52 PT 13.3 Sec. (12.2-14.9) 07/09/20 06:00 INR 1.03 (0.87-1.13) 07/09/20 06:00 D-Dimer 1116.17 ng/mlDDU (0-234) H 07/16/20 21:15 Sodium 134 mmol/L (137-145) L 07/16/20 08:53 Potassium 4.2 mmol/L (3.6-5.0) 07/16/20 08:53 Chloride 96.3 mmol/L (98-107) L 07/16/20 08:53 Carbon Dioxide 30 mmol/L (22-30) 07/16/20 08:53 Anion Gap 12 mmol/L 07/16/20 08:53 BUN 21 mg/dL (9-20) H 07/16/20 08:53 Creatinine 0.9 mg/dL (0.8-1.3) 07/16/20 08:53 Estimated GFR > 60 ml/min 07/16/20 08:53 BUN/Creatinine Ratio 23 % 07/16/20 08:53 Glucose 136 mg/dL (75-100) H 07/16/20 08:53 Osmolality 288 Mosm/kg 07/12/20 13:42 Lactic Acid 1.00 mmol/L (0.7-2.0) 07/08/20 20:58 Calcium 9.3 mg/dL (8.4-10.2) 07/16/20 08:53 Ferritin > 2000.0 ng/mL (30.0-300.0) H 07/16/20 21:15 Total Bilirubin 0.20 mg/dL (0.1-1.2) 07/11/20 04:36 Direct Bilirubin < 0.2 mg/dL (0-0.2) 07/11/20 04:36 Indirect Bilirubin 0.0 mg/dL 07/11/20 04:36 AST 33 units/L (5-40) 07/11/20 04:36 ALT 26 units/L (7-56) 07/11/20 04:36 Alkaline Phosphatase 51 units/L (35-129) 07/11/20 04:36 Lactate Dehydrogenase 337 units/L (91-180) H 07/16/20 21:15 C-Reactive Protein 7.30 mg/dL (0.00-1.30) H 07/16/20 21:15 Total Protein 6.3 g/dL (6.3-8.2) D 07/11/20 04:36 Albumin 3.2 g/dL (3.9-5) L 07/11/20 04:36 Albumin/Globulin Ratio 1.0 % 07/11/20 04:36 Procalcitonin 0.22 ng/mL (<0.15) 07/08/20 17:38 Urine Color Jaclyn (Yellow) 07/08/20 18:30 Urine Turbidity Clear (Clear) 07/08/20 18:30 Urine pH 5.0 (5.0-7.0) 07/08/20 18:30 Ur Specific [place] 1.027 (1.003-1.030) 07/08/20 18:30 Urine Protein >500 mg/dL (Negative) 07/08/20 18:30 Urine Glucose (UA) Neg mg/dL (Negative) 07/08/20 18:30 Urine Ketones Neg mg/dL (Negative) 07/08/20 18:30 Urine Blood Neg (Negative) 07/08/20 18:30 Urine Nitrite Neg (Negative) 07/08/20 18:30 Urine Bilirubin Neg (Negative) 07/08/20 18:30 Urine Urobilinogen 4.0 mg/dL (<2.0) 07/08/20 18:30 Ur Leukocyte Esterase Neg (Negative) 07/08/20 18:30 Urine WBC (Auto) 2.0 /HPF (0.0-6.0) 07/08/20 18:30 Urine RBC (Auto) 2.0 /HPF (0.0-6.0) 07/08/20 18:30 U Epithel Cells (Auto) 1.0 /HPF (0-13.0) 07/08/20 18:30 Urine Mucus Few /HPF 07/08/20 18:30 Nasal Screen MRSA (PCR) Negative (Negative) 07/11/20 18:05 Coronavirus (PCR) Positive (Negative) A 07/09/20 08:38 Qiu/IV: Voiding Method Urinal IV Catheter Type [Right Peripheral IV Antecubital] IV Catheter Type [Left Peripheral IV Antecubital] Active Medications - Current Medications Current Medications: Generic Name Dose Route Start Last Admin Trade Name Freq PRN Reason Stop Dose Admin Acetaminophen 650 mg 07/08/20 21:33 07/12/20 15:29 Acetaminophen 325 Mg Tab PO 650 mg Q4H PRN Administration Pain MILD(1-3)/Fever >100.5/MORENO Ascorbic Acid 1,000 mg 07/12/20 10:00 07/17/20 10:30 Ascorbic Acid 500 Mg Tab PO 1,000 mg BID BRIANNA Administration Cholecalciferol 5,000 unit 07/12/20 10:00 07/17/20 10:30 Cholecalciferol (Vit D3) 5,000 Unit Tab PO 5,000 unit DAILY BRIANNA Administration Enoxaparin Sodium 40 mg 07/10/20 10:00 07/17/20 10:30 Enoxaparin 40 Mg/0.4 Ml Inj SUB-Q 40 mg BID BRIANNA Administration Protocol Guaifenesin 200 mg 07/14/20 22:07 07/14/20 23:00 Guaifenesin 100 Mg/5 Ml Oral Liqd PO 200 mg Q4H PRN Administration Cough Magnesium Hydroxide 30 ml 07/08/20 21:33 Magnesium Hydroxide (Mom) Oral Liqd Udc PO Q4H PRN Constipation Ondansetron HCl 4 mg 07/08/20 21:33 07/16/20 21:00 Ondansetron 4 Mg/2 Ml Inj IV 4 mg Q8H PRN Administration Nausea And Vomiting Oxycodone HCl 5 mg 07/09/20 17:00 07/10/20 17:13 Oxycodone 5 Mg Tab PO 5 mg Q6H PRN Administration Pain, Moderate (4-6) Pseudoephedrine/Acetam/Chlorphenir 15 ml 07/09/20 12:00 07/12/20 15:29 Guaifenesin/Codeine 100-10mg Oral Liqd 5 Ml PO 15 ml Q4H PRN Administration Cough Sodium Chloride 10 ml 07/08/20 22:00 07/17/20 10:31 Sodium Chloride 0.9% 10 Ml Flush Syringe IV 10 ml BID BRIANNA Administration Sodium Chloride 10 ml 07/08/20 21:33 Sodium Chloride 0.9% 10 Ml Flush Syringe IV PRN PRN LINE FLUSH Zinc Sulfate 220 mg 07/12/20 10:00 07/17/20 10:30 Zinc Sulfate 220 Mg Cap PO 220 mg QDAY BRIANNA Administration Nutrition/Malnutrition Assess - Dietary Evaluation Nutrition/Malnutrition Findings: Nutrition Notes Start: 07/12/20 10:48 Freq: Status: Active Protocol: Document 07/16/20 15:46 LINN (Rec: 07/16/20 16:07 [id number]) Nutrition Notes Initial or Follow up Assessment Current Diagnosis Sepsis Other Pertinent Diagnosis COVID-19 (+), Bilat pneu Current Diet Cardiac Labs/Tests Na 134 Pertinent Medications Lasix Height 5 ft 9 in Weight 81.647 kg [place] Body Weight (kg) 72.72 BMI 26.6 Weight Status Overweight Subjective/Other Information Unable to reach pt via phone at 14:22. He has consumed 71% of meals since last assessment. Percent of energy/protein needs met: 74% energy 93% pro Burn Absent Trauma Absent Current % PO Fair (50-74%) Minimum of two criteria No #1 Nutrition Diagnosis No nutrition diagnosis at this time As Evidenced by Signs and Symptoms PO intakes almost meeting 75% estimated energy and pro needs , wt is acceptable Is patient on ventilator? No Is Patient Ambulatory and/or Out of Bed Yes REE-([facility]-ambulatory/OOB) [ 2140.905 [id number]] Calculation Used for Recommendations [facility] Additional Notes Pro needs 0.8-1g/k-82g/ day Fluid needs 1ml/kcal Nutrition Intervention Change Diet Order: Continue current diet order Goal #1 PO intakes to meet at least 75 % energy and pro needs Follow-Up By: 07/19/20 Additional Comments F/U: wt loss assessment, intakes
--- NOTE | 2020-07-18 08:03 | Progress Note ---
Assessment and Plan 54 y/o male with acute respiratory failure found to be COVID positive. Prone as tolerated during the day, and sleep prone at night. Improving with this. Will give lasix 20mg IV x1 Finished steroids Wean FiO2 for sats >88% Please do not give IVF's unless absolutely needed. Will order chemistry for today. Please replace lytes if needed. Guarded prognosis. Subjective Date of service: 07/18/20 Principal diagnosis: Covid Interval history: Patient did sleep prone some last night. Slept on side some as well. Down to 65%, but still at 30 liters. Decent sats. Sitting up in chair this am. Based on charting was negative over a liter yesterday. Objective Vital Signs - 12hr 07/17/20 07/17/20 07/18/20 21:59 22:00 00:00 Temperature 98.5 F Pulse Rate 82 Pulse Rate [ 65 From Monitor] Respiratory 20 Rate Blood Pressure 121/71 O2 Sat by Pulse 98 97 95 Oximetry 07/18/20 05:24 Temperature 98.0 F Pulse Rate 72 Pulse Rate [ From Monitor] Respiratory Rate Blood Pressure 115/67 O2 Sat by Pulse 97 Oximetry Constitutional: alert, other (critically ill on HFNC) Eyes: non-icteric ENT: oropharynx moist Neck: supple Effort: normal Ascultation: Bilateral: clear Cardiovascular: regular rate and rhythm (no mrg) Gastrointestinal: normoactive bowel sounds, soft, non-distended Integumentary: normal Extremities: no cyanosis, no edema, pink and warm Neurologic: normal mental status, non-focal exam Psychiatric: mood appropriate, affect normal CBC and BMP: 07/16/20 08:53 07/16/20 08:53 ABG, PT/INR, D-dimer: PT/INR, D-dimer PT 13.3 Sec. (12.2-14.9) 07/09/20 06:00 INR 1.03 (0.87-1.13) 07/09/20 06:00 D-Dimer 1116.17 ng/mlDDU (0-234) H 07/16/20 21:15 Abnormal lab findings: Abnormal Labs 07/08/20 07/08/20 07/08/20 17:38 17:38 17:38 WBC Hgb 16.1 H Hct 47.8 H MCV 95 H RDW 12.4 L Lymph % (Auto) 12.0 L Lymph # (Auto) 1.0 L Seg Neutrophils % 83.6 H Seg Neutrophils # D-Dimer 284.74 H Sodium Potassium Chloride BUN Creatinine Glucose Lactic Acid 2.40 H* Ferritin AST Lactate Dehydrogenase C-Reactive Protein Total Protein Albumin Coronavirus (PCR) 07/08/20 07/08/20 07/08/20 17:38 17:38 17:38 WBC Hgb Hct MCV RDW Lymph % (Auto) Lymph # (Auto) Seg Neutrophils % Seg Neutrophils # D-Dimer Sodium 133 L Potassium Chloride 92.8 L BUN 22 H Creatinine Glucose 131 H 128 H Lactic Acid Ferritin > 2000.0 H AST 56 H Lactate Dehydrogenase 604 H C-Reactive Protein 29.00 H Total Protein 8.4 H Albumin 3.5 L Coronavirus (PCR) 07/09/20 07/09/20 07/09/20 06:00 06:00 08:38 WBC Hgb Hct MCV RDW 12.3 L Lymph % (Auto) 5.4 L Lymph # (Auto) 0.4 L Seg Neutrophils % 89.4 H Seg Neutrophils # D-Dimer Sodium Potassium Chloride BUN 23 H Creatinine Glucose 179 H Lactic Acid Ferritin AST Lactate Dehydrogenase C-Reactive Protein Total Protein Albumin Coronavirus (PCR) Positive A 07/10/20 07/10/20 07/10/20 04:52 04:52 14:59 WBC 11.3 H Hgb Hct MCV RDW 12.3 L Lymph % (Auto) 6.7 L Lymph # (Auto) 0.8 L Seg Neutrophils % 89.2 H Seg Neutrophils # 10.1 H D-Dimer 371.35 H Sodium 136 L Potassium Chloride BUN Creatinine Glucose 134 H Lactic Acid Ferritin AST Lactate Dehydrogenase C-Reactive Protein Total Protein Albumin Coronavirus (PCR) 07/10/20 07/10/20 07/11/20 14:59 14:59 04:36 WBC Hgb Hct MCV RDW Lymph % (Auto) Lymph # (Auto) Seg Neutrophils % Seg Neutrophils # D-Dimer Sodium 136 L Potassium 5.4 H Chloride BUN Creatinine Glucose 140 H Lactic Acid Ferritin 2974.0 H AST Lactate Dehydrogenase 440 H C-Reactive Protein 8.30 H Total Protein Albumin 3.2 L Coronavirus (PCR) 07/12/20 07/12/20 07/12/20 07:19 07:19 07:19 WBC Hgb Hct MCV RDW Lymph % (Auto) Lymph # (Auto) Seg Neutrophils % Seg Neutrophils # D-Dimer 4581.64 H Sodium Potassium Chloride BUN Creatinine Glucose Lactic Acid Ferritin > 950.0 H AST Lactate Dehydrogenase 406 H C-Reactive Protein 11.10 H Total Protein Albumin Coronavirus (PCR) 07/13/20 07/13/20 07/16/20 04:26 04:26 08:53 WBC Hgb Hct MCV RDW 12.4 L 12.7 L Lymph % (Auto) Lymph # (Auto) Seg Neutrophils % Seg Neutrophils # D-Dimer Sodium 136 L Potassium Chloride BUN Creatinine 0.7 L Glucose 119 H Lactic Acid Ferritin AST Lactate Dehydrogenase C-Reactive Protein Total Protein Albumin Coronavirus (PCR) 07/16/20 07/16/20 07/16/20 08:53 21:15 21:15 WBC Hgb Hct MCV RDW Lymph % (Auto) Lymph # (Auto) Seg Neutrophils % Seg Neutrophils # D-Dimer 1116.17 H Sodium 134 L Potassium Chloride 96.3 L BUN 21 H Creatinine Glucose 136 H Lactic Acid Ferritin > 2000.0 H AST Lactate Dehydrogenase C-Reactive Protein Total Protein Albumin Coronavirus (PCR) 07/16/20 21:15 WBC Hgb Hct MCV RDW Lymph % (Auto) Lymph # (Auto) Seg Neutrophils % Seg Neutrophils # D-Dimer Sodium Potassium Chloride BUN Creatinine Glucose Lactic Acid Ferritin AST Lactate Dehydrogenase 337 H C-Reactive Protein 7.30 H Total Protein Albumin Coronavirus (PCR)
[2020-07-18] MEDS ORDERED: FUROSEMIDE 20 MG/2 ML INJ IV NR (08:30)
[2020-07-18] MEDS: ENOXAPARIN 40 MG/0.4 ML INJ SUB-Q SCH ×2 (09:25→22:41)
[2020-07-18] MEDS: ZINC SULFATE 220 MG CAP PO SCH (09:26)
[2020-07-18] MEDS: CHOLECALCIFEROL (VIT D3) 5,000 UNIT TAB PO SCH (09:26)
[2020-07-18] MEDS: ASCORBIC ACID 500 MG TAB PO SCH ×2 (09:26→22:41)
--- NOTE | 2020-07-18 11:36 | Progress Note ---
Assessment and Plan Assessment and plan: 54-year-old male with known history of hypertension who tested Covid positive about 3 days ago presenting to the emergency room today complaining of shortness of breath and generalized weakness over the past few days. Shortness of breath is said to have gotten worse today and therefore decided to report to the emergency room. Upon arrival in the emergency room he had a blood pressure of 96/50, temperature of 1 103 F, tachypneic with an O2 saturation of 76% on room air. He was subsequently placed on oxygen 3 L and oxygen saturation improved to about 100%. Work-up in the emergency room today shows bilateral pneumonia on chest x-ray. Lactic acid also elevated at 2.40 Patient was placed on IV fluid per sepsis protocol, IV antibiotics and steroid. He has been admitted with pneumonia possibly secondary to COVID-19. 1) Bilateral pneumonia Current Visit: Yes Status: Acute Plan to address problem: Patient started on empiric IV antibiotics. We will await culture results. He however tested positive for COVID-19 few days ago. (2) Acute respiratory failure due to COVID-19 Current Visit: Yes Status: Acute Plan to address problem: Possibly due to the Covid pneumonia. Patient placed on oxygen by nasal cannula and will keep O2 saturation greater or equal to 94%. We will continue on IV antibiotics, placed on IV steroid. Patient also placed on isolation precautions. Infectious disease has been consulted for evaluation. (3) Sepsis Current Visit: Yes Status: Acute Plan to address problem: Secondary to the underlying pneumonia. Patient has been given some IV fluid and IV antibiotics. (4) DVT prophylaxis Current Visit: Yes Status: Acute Plan to address problem: Patient placed on subcutaneous Lovenox. (5) Full code status Current Visit: Yes Status: Acute Plan to address problem: Patient is full code. 07/09/2020; patient is admitted for sepsis secondary to Covid-19 pneumonia versus bacterial pneumonia. Patient is on IV Decadron and ID is consulted for remdesivir treatment. Patient is still short of breath, on 10 L of high flow oxygen. 07/10/2020; patient is on high flow oxygen, hyper etc. secondary to COVID-19 pneumonia versus bacterial pneumonia. Continue with IV antibiotics, remdesivir and Decadron. Pulmonary and ID consult appreciated. Patient is on intermediate dose of Lovenox for COVID-19 pneumonia. 07/11: Continue to wean high flow as tolerated. Continue COVID-19 protocol per [facility] policy. ID and pulmonary input noted. 07/12: Continue current management wean as tolerated. Continues on remdesivir and Decadron. We will give a dose of Lasix today. Continue to monitor I's and O's. Patient wants cough suppressant discussed the effectiveness of good cough to help keep the airways open. Trial of Robitussin for comfort measures. Patient remains critically ill. We will also check a serum muscularity we will add some vitamins supplementation. 07/13; still with fever, unfortunately appears that the oxygen demand went up. Patient received a dose of Lasix yesterday. Cough is slightly improving. We will continue current management. Prognosis remains guarded 07/14: Continue supportive care, will give additional lasix today. Oxygen FIO2 down to 80% with sat 94% 07/15: Continue supportive care. Will hold off on Lasix today and repeat may be tomorrow. Remains on high flow oxygen at this time. Prognosis is still guarded 07/17; patient is critically ill, on high flow oxygen, worsening inflammatory markers, poor prognosis We will continue current management, consults recommendations followed 07/18: Continues to show some improvement. ID and pulmonary input appreciated Lasix given today. Continue to wean as tolerated The high probability of a clinically significant, sudden or life threatening deterioration of the [pulmonary] system(s) required my full and direct attention, intervention and personal management. The aggregate critical care time was [35] minutes. This time is in addition to time spent performing reported procedures but includes the following: [x] Data Review and interpretation [x] Patient assessment and monitoring of vital signs [x] Documentation [x] Medication orders and management History Interval history: Patient seen and examined lying prone today still with shortness of breath on high flow. Continues to show improvement completed remdesivir. Hospitalist Physical - Physical exam Narrative exam: Still with mild respiratory distress on high flow lying down prone on bed The patient appeared well nourished and normally developed. Vital signs as documented. Head exam is unremarkable. No scleral icterus . Neck is without jugular venous distension, thyromegaly, or carotid bruits. Lungs are clear to auscultation. Cardiac exam reveals regular rate and Rhythm. Abdominal exam reveals normal bowel sounds, nontender, no organomegaly. Extremities are nonedematous and both femoral and pedal pulses are normal. 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 No focal weakness. - Constitutional Vitals: Temp Pulse Resp BP Pulse Ox 98.0 F 72 20 115/67 97 07/18/20 05:24 07/18/20 05:24 07/17/20 21:59 07/18/20 05:24 07/18/20 05:24 General appearance: Present: no acute distress, well-nourished Results - Labs CBC & Chem 7: 07/16/20 08:53 07/18/20 11:24 Labs: Laboratory Last Values WBC 9.3 K/mm3 (4.5-11.0) 07/16/20 08:53 RBC 4.64 M/mm3 (3.65-5.03) 07/16/20 08:53 Hgb 14.5 gm/dl (11.8-15.2) 07/16/20 08:53 Hct 43.7 % (35.5-45.6) 07/16/20 08:53 MCV 94 fl (84-94) 07/16/20 08:53 MCH 31 pg (28-32) 07/16/20 08:53 MCHC 33 % (32-34) 07/16/20 08:53 RDW 12.7 % (13.2-15.2) L 07/16/20 08:53 Plt Count 411 K/mm3 (140-440) 07/16/20 08:53 Lymph % (Auto) 6.7 % (13.4-35.0) L 07/10/20 04:52 [place] % (Auto) 3.8 % (0.0-7.3) 07/10/20 04:52 Eos % (Auto) 0.0 % (0.0-4.3) 07/10/20 04:52 Baso % (Auto) 0.3 % (0.0-1.8) 07/10/20 04:52 Lymph # (Auto) 0.8 K/mm3 (1.2-5.4) L 07/10/20 04:52 Bath # (Auto) 0.4 K/mm3 (0.0-0.8) 07/10/20 04:52 Eos # (Auto) 0.0 K/mm3 (0.0-0.4) 07/10/20 04:52 Baso # (Auto) 0.0 K/mm3 (0.0-0.1) 07/10/20 04:52 Seg Neutrophils % 89.2 % (40.0-70.0) H 07/10/20 04:52 Seg Neutrophils # 10.1 K/mm3 (1.8-7.7) H 07/10/20 04:52 PT 13.3 Sec. (12.2-14.9) 07/09/20 06:00 INR 1.03 (0.87-1.13) 07/09/20 06:00 D-Dimer 1116.17 ng/mlDDU (0-234) H 07/16/20 21:15 Sodium 134 mmol/L (137-145) L 07/16/20 08:53 Potassium 4.2 mmol/L (3.6-5.0) 07/16/20 08:53 Chloride 96.3 mmol/L (98-107) L 07/16/20 08:53 Carbon Dioxide 30 mmol/L (22-30) 07/16/20 08:53 Anion Gap 12 mmol/L 07/16/20 08:53 BUN 21 mg/dL (9-20) H 07/16/20 08:53 Creatinine 0.9 mg/dL (0.8-1.3) 07/16/20 08:53 Estimated GFR > 60 ml/min 07/16/20 08:53 BUN/Creatinine Ratio 23 % 07/16/20 08:53 Glucose 136 mg/dL (75-100) H 07/16/20 08:53 Osmolality 288 Mosm/kg 07/12/20 13:42 Lactic Acid 1.00 mmol/L (0.7-2.0) 07/08/20 20:58 Calcium 9.3 mg/dL (8.4-10.2) 07/16/20 08:53 Ferritin > 2000.0 ng/mL (30.0-300.0) H 07/16/20 21:15 Total Bilirubin 0.20 mg/dL (0.1-1.2) 07/11/20 04:36 Direct Bilirubin < 0.2 mg/dL (0-0.2) 07/11/20 04:36 Indirect Bilirubin 0.0 mg/dL 07/11/20 04:36 AST 33 units/L (5-40) 07/11/20 04:36 ALT 26 units/L (7-56) 07/11/20 04:36 Alkaline Phosphatase 51 units/L (35-129) 07/11/20 04:36 Lactate Dehydrogenase 337 units/L (91-180) H 07/16/20 21:15 C-Reactive Protein 7.30 mg/dL (0.00-1.30) H 07/16/20 21:15 Total Protein 6.3 g/dL (6.3-8.2) D 07/11/20 04:36 Albumin 3.2 g/dL (3.9-5) L 07/11/20 04:36 Albumin/Globulin Ratio 1.0 % 07/11/20 04:36 Procalcitonin 0.22 ng/mL (<0.15) 07/08/20 17:38 Urine Color Jaclyn (Yellow) 07/08/20 18:30 Urine Turbidity Clear (Clear) 07/08/20 18:30 Urine pH 5.0 (5.0-7.0) 07/08/20 18:30 Ur Specific [place] 1.027 (1.003-1.030) 07/08/20 18:30 Urine Protein >500 mg/dL (Negative) 07/08/20 18:30 Urine Glucose (UA) Neg mg/dL (Negative) 07/08/20 18:30 Urine Ketones Neg mg/dL (Negative) 07/08/20 18:30 Urine Blood Neg (Negative) 07/08/20 18:30 Urine Nitrite Neg (Negative) 07/08/20 18:30 Urine Bilirubin Neg (Negative) 07/08/20 18:30 Urine Urobilinogen 4.0 mg/dL (<2.0) 07/08/20 18:30 Ur Leukocyte Esterase Neg (Negative) 07/08/20 18:30 Urine WBC (Auto) 2.0 /HPF (0.0-6.0) 07/08/20 18:30 Urine RBC (Auto) 2.0 /HPF (0.0-6.0) 07/08/20 18:30 U Epithel Cells (Auto) 1.0 /HPF (0-13.0) 07/08/20 18:30 Urine Mucus Few /HPF 07/08/20 18:30 Nasal Screen MRSA (PCR) Negative (Negative) 07/11/20 18:05 Coronavirus (PCR) Positive (Negative) A 07/09/20 08:38 Qiu/IV: Voiding Method Urinal IV Catheter Type [Right Peripheral IV Antecubital] IV Catheter Type [Left Peripheral IV Antecubital] Active Medications - Current Medications Current Medications: Generic Name Dose Route Start Last Admin Trade Name Freq PRN Reason Stop Dose Admin Acetaminophen 650 mg 07/08/20 21:33 07/12/20 15:29 Acetaminophen 325 Mg Tab PO 650 mg Q4H PRN Administration Pain MILD(1-3)/Fever >100.5/OMRENO Ascorbic Acid 1,000 mg 07/12/20 10:00 07/18/20 09:26 Ascorbic Acid 500 Mg Tab PO 1,000 mg BID BRIANNA Administration Cholecalciferol 5,000 unit 07/12/20 10:00 07/18/20 09:26 Cholecalciferol (Vit D3) 5,000 Unit Tab PO 5,000 unit DAILY BRIANNA Administration Enoxaparin Sodium 40 mg 07/10/20 10:00 07/18/20 09:25 Enoxaparin 40 Mg/0.4 Ml Inj SUB-Q 40 mg BID BRIANNA Administration Protocol Furosemide 20 mg 07/18/20 08:30 07/18/20 09:26 Furosemide 20 Mg/2 Ml Inj IV 07/18/20 12:00 20 mg ONCE@0830 NR Administration Guaifenesin 200 mg 07/14/20 22:07 07/14/20 23:00 Guaifenesin 100 Mg/5 Ml Oral Liqd PO 200 mg Q4H PRN Administration Cough Magnesium Hydroxide 30 ml 07/08/20 21:33 Magnesium Hydroxide (Mom) Oral Liqd Udc PO Q4H PRN Constipation Ondansetron HCl 4 mg 07/08/20 21:33 07/16/20 21:00 Ondansetron 4 Mg/2 Ml Inj IV 4 mg Q8H PRN Administration Nausea And Vomiting Oxycodone HCl 5 mg 07/09/20 17:00 07/10/20 17:13 Oxycodone 5 Mg Tab PO 5 mg Q6H PRN Administration Pain, Moderate (4-6) Pseudoephedrine/Acetam/Chlorphenir 15 ml 07/09/20 12:00 07/12/20 15:29 Guaifenesin/Codeine 100-10mg Oral Liqd 5 Ml PO 15 ml Q4H PRN Administration Cough Sodium Chloride 10 ml 07/08/20 22:00 07/18/20 09:26 Sodium Chloride 0.9% 10 Ml Flush Syringe IV 10 ml BID BRIANNA Administration Sodium Chloride 10 ml 07/08/20 21:33 Sodium Chloride 0.9% 10 Ml Flush Syringe IV PRN PRN LINE FLUSH Zinc Sulfate 220 mg 07/12/20 10:00 07/18/20 09:26 Zinc Sulfate 220 Mg Cap PO 220 mg QDAY BRIANNA Administration Nutrition/Malnutrition Assess - Dietary Evaluation Nutrition/Malnutrition Findings: Nutrition Notes Start: 07/12/20 10:48 Freq: Status: Active Protocol: Document 07/16/20 15:46 LINN (Rec: 07/16/20 16:07 LINN [id number]) Nutrition Notes Initial or Follow up Assessment Current Diagnosis Sepsis Other Pertinent Diagnosis COVID-19 (+), Bilat pneu Current Diet Cardiac Labs/Tests Na 134 Pertinent Medications Lasix Height 5 ft 9 in Weight 81.647 kg [place] Body Weight (kg) 72.72 BMI 26.6 Weight Status Overweight Subjective/Other Information Unable to reach pt via phone at 14:22. He has consumed 71% of meals since last assessment. Percent of energy/protein needs met: 74% energy 93% pro Burn Absent Trauma Absent Current % PO Fair (50-74%) Minimum of two criteria No #1 Nutrition Diagnosis No nutrition diagnosis at this time As Evidenced by Signs and Symptoms PO intakes almost meeting 75% estimated energy and pro needs , wt is acceptable Is patient on ventilator? No Is Patient Ambulatory and/or Out of Bed Yes REE-([place]-St[place] Jeor-ambulatory/OOB) [ 2140.905 [id number]] Calculation Used for Recommendations [place] Jeor Additional Notes Pro needs 0.8-1g/k-82g/ day Fluid needs 1ml/kcal Nutrition Intervention Change Diet Order: Continue current diet order Goal #1 PO intakes to meet at least 75 % energy and pro needs Follow-Up By: 07/19/20 Additional Comments F/U: wt loss assessment, intakes
[2020-07-18 12:09] LABS: BUN/Creatinine Ratio 27; Blood Urea Nitrogen 24 mg/dL (9-20); Calcium 9.4 mg/dL (8.4-10.2); Hemolysis Index 26
--- NOTE | 2020-07-18 14:47 | Progress Note ---
Assessment and Plan Cultures: SARS CoV2 PCR: Positive Blood culture: No growth A/P: 53-year-old male with hypertension: #Bilateral pneumonia: Secondary to COVID-19. Inflammatory markers elevated. VTE eval negative. #Acute hypoxic respiratory failure: On HFNC Recs: -completed 10 days of steroids -completed Remdesivir -prophylactic anticoagulation based on d-dimer per hospital protocol -continue supportive care and oxygen weaning ID will sign off. Please call with questions. Umang Healy MD, FACP [facility] O: [phone] F: [phone] Subjective Date of service: 07/18/20 Principal diagnosis: Covid Interval history: No fever. Remains on HFNC. Objective - Exam Narrative Exam: Physical Exam (reviewed in chart to minimize risk of transmission) Constitutional: deferred Head, Ears, Nose: deferred Eyes: deferred Neck: deferred Oral: deferred Cardiovascular: deferred Respiratory: deferred GI: deferred Musculoskeletal: deferred Skin: deferred Hem/Lymphatic: deferred Psych: deferred Neurological: deferred - Constitutional Vitals: Vital Signs Temp Pulse Resp BP Pulse Ox 98.3 F 94 H 20 105/73 95 07/18/20 11:19 07/18/20 11:19 07/18/20 11:19 07/18/20 11:19 07/18/20 12:00 Temperature -Last 24 Hours Temperature 98.3 F Temperature 98.0 F Temperature 98.5 F Temperature 99.0 F - Labs CBC & Chem 7: 07/16/20 08:53 07/18/20 11:24 Labs: Abnormal lab results 07/18/20 Range/Units 11:24 Sodium 130 L (137-145) mmol/L Chloride 94.6 L (98-107) mmol/L BUN 24 H (9-20) mg/dL Glucose 109 H (75-100) mg/dL
[2020-07-18] MEDS: MAGNESIUM HYDROXIDE (MOM) ORAL LIQD UDC PO PRN (17:41)
[2020-07-19] MEDS: ASCORBIC ACID 500 MG TAB PO SCH ×2 (09:33→21:26)
[2020-07-19] MEDS: CHOLECALCIFEROL (VIT D3) 5,000 UNIT TAB PO SCH (09:34)
[2020-07-19] MEDS: ENOXAPARIN 40 MG/0.4 ML INJ SUB-Q SCH ×2 (09:34→21:26)
[2020-07-19] MEDS: ZINC SULFATE 220 MG CAP PO SCH (09:34)
--- NOTE | 2020-07-19 10:42 | Progress Note ---
Assessment and Plan Assessment and plan: 54-year-old male with known history of hypertension who tested Covid positive about 3 days ago presenting to the emergency room today complaining of shortness of breath and generalized weakness over the past few days. Shortness of breath is said to have gotten worse today and therefore decided to report to the emergency room. Upon arrival in the emergency room he had a blood pressure of 96/50, temperature of 1 103 F, tachypneic with an O2 saturation of 76% on room air. He was subsequently placed on oxygen 3 L and oxygen saturation improved to about 100%. Work-up in the emergency room today shows bilateral pneumonia on chest x-ray. Lactic acid also elevated at 2.40 Patient was placed on IV fluid per sepsis protocol, IV antibiotics and steroid. He has been admitted with pneumonia possibly secondary to COVID-19. 1) Bilateral pneumonia Current Visit: Yes Status: Acute Plan to address problem: Patient started on empiric IV antibiotics. We will await culture results. He however tested positive for COVID-19 few days ago. (2) Acute respiratory failure due to COVID-19 Current Visit: Yes Status: Acute Plan to address problem: Possibly due to the Covid pneumonia. Patient placed on oxygen by nasal cannula and will keep O2 saturation greater or equal to 94%. We will continue on IV antibiotics, placed on IV steroid. Patient also placed on isolation precautions. Infectious disease has been consulted for evaluation. (3) Sepsis Current Visit: Yes Status: Acute Plan to address problem: Secondary to the underlying pneumonia. Patient has been given some IV fluid and IV antibiotics. (4) DVT prophylaxis Current Visit: Yes Status: Acute Plan to address problem: Patient placed on subcutaneous Lovenox. (5) Full code status Current Visit: Yes Status: Acute Plan to address problem: Patient is full code. 07/09/2020; patient is admitted for sepsis secondary to Covid-19 pneumonia versus bacterial pneumonia. Patient is on IV Decadron and ID is consulted for remdesivir treatment. Patient is still short of breath, on 10 L of high flow oxygen. 07/10/2020; patient is on high flow oxygen, hyper etc. secondary to COVID-19 pneumonia versus bacterial pneumonia. Continue with IV antibiotics, remdesivir and Decadron. Pulmonary and ID consult appreciated. Patient is on intermediate dose of Lovenox for COVID-19 pneumonia. 07/11: Continue to wean high flow as tolerated. Continue COVID-19 protocol per [facility] policy. ID and pulmonary input noted. 07/12: Continue current management wean as tolerated. Continues on remdesivir and Decadron. We will give a dose of Lasix today. Continue to monitor I's and O's. Patient wants cough suppressant discussed the effectiveness of good cough to help keep the airways open. Trial of Robitussin for comfort measures. Patient remains critically ill. We will also check a serum muscularity we will add some vitamins supplementation. 07/13; still with fever, unfortunately appears that the oxygen demand went up. Patient received a dose of Lasix yesterday. Cough is slightly improving. We will continue current management. Prognosis remains guarded 07/14: Continue supportive care, will give additional lasix today. Oxygen FIO2 down to 80% with sat 94% 07/15: Continue supportive care. Will hold off on Lasix today and repeat may be tomorrow. Remains on high flow oxygen at this time. Prognosis is still guarded 07/17; patient is critically ill, on high flow oxygen, worsening inflammatory markers, poor prognosis We will continue current management, consults recommendations followed 07/18: Continues to show some improvement. ID and pulmonary input appreciated Lasix given today. Continue to wean as tolerated 07/19: Stefany on high flow although clinically improving continue to encourage prone positioning. Complete steroid therapy as prescribed. Patient has completed remdesivir. The high probability of a clinically significant, sudden or life threatening deterioration of the [pulmonary] system(s) required my full and direct attention, intervention and personal management. The aggregate critical care time was [35] minutes. This time is in addition to time spent performing reported procedures but includes the following: [x] Data Review and interpretation [x] Patient assessment and monitoring of vital signs [x] Documentation [x] Medication orders and management History Interval history: Patient seen and examined lying prone today still with shortness of breath on high flow. Continues to show improvement completed remdesivir. Hospitalist Physical - Physical exam Narrative exam: Still with mild respiratory distress on high flow lying down prone on bed The patient appeared well nourished and normally developed. Vital signs as documented. Head exam is unremarkable. No scleral icterus . Neck is without jugular venous distension, thyromegaly, or carotid bruits. Lungs are clear to auscultation. Cardiac exam reveals regular rate and Rhythm. Abdominal exam reveals normal bowel sounds, nontender, no organomegaly. Extremities are nonedematous and both femoral and pedal pulses are normal. [employer]: Alert and oriented 3. No focal weakness. - Constitutional Vitals: Temp Pulse Resp BP Pulse Ox 98.7 F 95 H 20 111/79 94 07/19/20 04:57 07/19/20 04:57 07/19/20 04:57 07/19/20 04:57 07/19/20 08:00 General appearance: Present: no acute distress, well-nourished Results - Labs CBC & Chem 7: 07/16/20 08:53 07/18/20 11:24 Labs: Laboratory Last Values WBC 9.3 K/mm3 (4.5-11.0) 07/16/20 08:53 RBC 4.64 M/mm3 (3.65-5.03) 07/16/20 08:53 Hgb 14.5 gm/dl (11.8-15.2) 07/16/20 08:53 Hct 43.7 % (35.5-45.6) 07/16/20 08:53 MCV 94 fl (84-94) 07/16/20 08:53 MCH 31 pg (28-32) 07/16/20 08:53 MCHC 33 % (32-34) 07/16/20 08:53 RDW 12.7 % (13.2-15.2) L 07/16/20 08:53 Plt Count 411 K/mm3 (140-440) 07/16/20 08:53 Lymph % (Auto) 6.7 % (13.4-35.0) L 07/10/20 04:52 Cook % (Auto) 3.8 % (0.0-7.3) 07/10/20 04:52 Eos % (Auto) 0.0 % (0.0-4.3) 07/10/20 04:52 Baso % (Auto) 0.3 % (0.0-1.8) 07/10/20 04:52 Lymph # (Auto) 0.8 K/mm3 (1.2-5.4) L 07/10/20 04:52 Cook # (Auto) 0.4 K/mm3 (0.0-0.8) 07/10/20 04:52 Eos # (Auto) 0.0 K/mm3 (0.0-0.4) 07/10/20 04:52 Baso # (Auto) 0.0 K/mm3 (0.0-0.1) 07/10/20 04:52 Seg Neutrophils % 89.2 % (40.0-70.0) H 07/10/20 04:52 Seg Neutrophils # 10.1 K/mm3 (1.8-7.7) H 07/10/20 04:52 PT 13.3 Sec. (12.2-14.9) 07/09/20 06:00 INR 1.03 (0.87-1.13) 07/09/20 06:00 D-Dimer 1116.17 ng/mlDDU (0-234) H 07/16/20 21:15 Sodium 130 mmol/L (137-145) L 07/18/20 11:24 Potassium 4.2 mmol/L (3.6-5.0) 07/18/20 11:24 Chloride 94.6 mmol/L (98-107) L 07/18/20 11:24 Carbon Dioxide 26 mmol/L (22-30) 07/18/20 11:24 Anion Gap 14 mmol/L 07/18/20 11:24 BUN 24 mg/dL (9-20) H 07/18/20 11:24 Creatinine 0.9 mg/dL (0.8-1.3) 07/18/20 11:24 Estimated GFR > 60 ml/min 07/18/20 11:24 BUN/Creatinine Ratio 27 % 07/18/20 11:24 Glucose 109 mg/dL (75-100) H 07/18/20 11:24 Osmolality 288 Mosm/kg 07/12/20 13:42 Lactic Acid 1.00 mmol/L (0.7-2.0) 07/08/20 20:58 Calcium 9.4 mg/dL (8.4-10.2) 07/18/20 11:24 Phosphorus 3.10 mg/dL (2.5-4.5) 07/18/20 11:24 Magnesium 2.10 mg/dL (1.7-2.3) 07/18/20 11:24 Ferritin > 2000.0 ng/mL (30.0-300.0) H 07/16/20 21:15 Total Bilirubin 0.20 mg/dL (0.1-1.2) 07/11/20 04:36 Direct Bilirubin < 0.2 mg/dL (0-0.2) 07/11/20 04:36 Indirect Bilirubin 0.0 mg/dL 07/11/20 04:36 AST 33 units/L (5-40) 07/11/20 04:36 ALT 26 units/L (7-56) 07/11/20 04:36 Alkaline Phosphatase 51 units/L (35-129) 07/11/20 04:36 Lactate Dehydrogenase 337 units/L (91-180) H 07/16/20 21:15 C-Reactive Protein 7.30 mg/dL (0.00-1.30) H 07/16/20 21:15 Total Protein 6.3 g/dL (6.3-8.2) D 07/11/20 04:36 Albumin 3.2 g/dL (3.9-5) L 07/11/20 04:36 Albumin/Globulin Ratio 1.0 % 07/11/20 04:36 Procalcitonin 0.22 ng/mL (<0.15) 07/08/20 17:38 Urine Color Jaclyn (Yellow) 07/08/20 18:30 Urine Turbidity Clear (Clear) 07/08/20 18:30 Urine pH 5.0 (5.0-7.0) 07/08/20 18:30 Ur Specific [place] 1.027 (1.003-1.030) 07/08/20 18:30 Urine Protein >500 mg/dL (Negative) 07/08/20 18:30 Urine Glucose (UA) Neg mg/dL (Negative) 07/08/20 18:30 Urine Ketones Neg mg/dL (Negative) 07/08/20 18:30 Urine Blood Neg (Negative) 07/08/20 18:30 Urine Nitrite Neg (Negative) 07/08/20 18:30 Urine Bilirubin Neg (Negative) 07/08/20 18:30 Urine Urobilinogen 4.0 mg/dL (<2.0) 07/08/20 18:30 Ur Leukocyte Esterase Neg (Negative) 07/08/20 18:30 Urine WBC (Auto) 2.0 /HPF (0.0-6.0) 07/08/20 18:30 Urine RBC (Auto) 2.0 /HPF (0.0-6.0) 07/08/20 18:30 U Epithel Cells (Auto) 1.0 /HPF (0-13.0) 07/08/20 18:30 Urine Mucus Few /HPF 07/08/20 18:30 Nasal Screen MRSA (PCR) Negative (Negative) 07/11/20 18:05 Coronavirus (PCR) Positive (Negative) A 07/09/20 08:38 Qiu/IV: Voiding Method Urinal IV Catheter Type [Right Peripheral IV Antecubital] IV Catheter Type [Left Peripheral IV Antecubital] Active Medications - Current Medications Current Medications: Generic Name Dose Route Start Last Admin Trade Name Freq PRN Reason Stop Dose Admin Acetaminophen 650 mg 07/08/20 21:33 07/12/20 15:29 Acetaminophen 325 Mg Tab PO 650 mg Q4H PRN Administration Pain MILD(1-3)/Fever >100.5/MORENO Ascorbic Acid 1,000 mg 07/12/20 10:00 07/19/20 09:33 Ascorbic Acid 500 Mg Tab PO 1,000 mg BID BRIANNA Administration Cholecalciferol 5,000 unit 07/12/20 10:00 07/19/20 09:34 Cholecalciferol (Vit D3) 5,000 Unit Tab PO 5,000 unit DAILY BRIANNA Administration Enoxaparin Sodium 40 mg 07/10/20 10:00 07/19/20 09:34 Enoxaparin 40 Mg/0.4 Ml Inj SUB-Q 40 mg BID BRIANNA Administration Protocol Guaifenesin 200 mg 07/14/20 22:07 07/14/20 23:00 Guaifenesin 100 Mg/5 Ml Oral Liqd PO 200 mg Q4H PRN Administration Cough Magnesium Hydroxide 30 ml 07/08/20 21:33 07/18/20 17:41 Magnesium Hydroxide (Mom) Oral Liqd Udc PO 30 ml Q4H PRN Administration Constipation Ondansetron HCl 4 mg 07/08/20 21:33 07/16/20 21:00 Ondansetron 4 Mg/2 Ml Inj IV 4 mg Q8H PRN Administration Nausea And Vomiting Oxycodone HCl 5 mg 07/09/20 17:00 07/10/20 17:13 Oxycodone 5 Mg Tab PO 5 mg Q6H PRN Administration Pain, Moderate (4-6) Pseudoephedrine/Acetam/Chlorphenir 15 ml 07/09/20 12:00 07/12/20 15:29 Guaifenesin/Codeine 100-10mg Oral Liqd 5 Ml PO 15 ml Q4H PRN Administration Cough Sodium Chloride 10 ml 07/08/20 22:00 07/19/20 09:34 Sodium Chloride 0.9% 10 Ml Flush Syringe IV 10 ml BID BRIANNA Administration Sodium Chloride 10 ml 07/08/20 21:33 Sodium Chloride 0.9% 10 Ml Flush Syringe IV PRN PRN LINE FLUSH Zinc Sulfate 220 mg 07/12/20 10:00 07/19/20 09:34 Zinc Sulfate 220 Mg Cap PO 220 mg QDAY BRIANNA Administration Nutrition/Malnutrition Assess - Dietary Evaluation Nutrition/Malnutrition Findings: Nutrition Notes Start: 07/12/20 10:48 Freq: Status: Active Protocol: Document 07/16/20 15:46 LINN (Rec: 07/16/20 16:07 LINN [id number]) Nutrition Notes Initial or Follow up Assessment Current Diagnosis Sepsis Other Pertinent Diagnosis COVID-19 (+), Bilat pneu Current Diet Cardiac Labs/Tests Na 134 Pertinent Medications Lasix Height 5 ft 9 in Weight 81.647 kg Guy Body Weight (kg) 72.72 BMI 26.6 Weight Status Overweight Subjective/Other Information Unable to reach pt via phone at 14:22. He has consumed 71% of meals since last assessment. Percent of energy/protein needs met: 74% energy 93% pro Burn Absent Trauma Absent Current % PO Fair (50-74%) Minimum of two criteria No #1 Nutrition Diagnosis No nutrition diagnosis at this time As Evidenced by Signs and Symptoms PO intakes almost meeting 75% estimated energy and pro needs , wt is acceptable Is patient on ventilator? No Is Patient Ambulatory and/or Out of Bed Yes [facility] [ [id number] [id number]] Calculation [facility] Additional [facility] Pro needs 0.8-1g/k-82g/ day Fluid needs 1ml/kcal Nutrition Intervention Change Diet Order: Continue current diet order Goal #1 PO intakes to meet at least 75 % energy and pro needs Follow-Up By: 12/31/20 Additional Comments F/U: wt loss assessment, intakes
[2020-07-19] MEDS: MAGNESIUM HYDROXIDE (MOM) ORAL LIQD UDC PO PRN (13:35)
--- NOTE | 2020-07-19 13:43 | Progress Note ---
Assessment and Plan 54 y/o male with acute respiratory failure found to be COVID positive. Prone as tolerated during the day, and sleep prone at night. Improving with this. hold on lasix therapy today. Finished steroids Wean FiO2 for sats >88% Please do not give IVF's unless absolutely needed. Guarded prognosis. Subjective Date of service: 07/19/20 Principal diagnosis: Covid Interval history: Patient down to 6 liters now. Objective Vital Signs - 12hr 07/19/20 07/19/20 07/19/20 02:00 04:57 08:00 Temperature 98.7 F Pulse Rate 95 H Respiratory 20 Rate Blood Pressure 111/79 O2 Sat by Pulse 95 97 94 Oximetry 07/19/20 07/19/20 11:19 11:24 Temperature 99.8 F H 98.1 F Pulse Rate 91 H 123 H Respiratory 20 22 Rate Blood Pressure 112/80 120/61 O2 Sat by Pulse 96 94 Oximetry Constitutional: alert, other (critically ill on HFNC) Eyes: non-icteric ENT: oropharynx moist Neck: supple Effort: normal Ascultation: Bilateral: clear Cardiovascular: regular rate and rhythm (no mrg) Gastrointestinal: normoactive bowel sounds, soft, non-distended Integumentary: normal Extremities: no cyanosis, no edema, pink and warm Neurologic: normal mental status, non-focal exam Psychiatric: mood appropriate, affect normal CBC and BMP: 07/16/20 08:53 07/18/20 11:24 ABG, PT/INR, D-dimer: PT/INR, D-dimer PT 13.3 Sec. (12.2-14.9) 07/09/20 06:00 INR 1.03 (0.87-1.13) 07/09/20 06:00 D-Dimer 1116.17 ng/mlDDU (0-234) H 07/16/20 21:15 Abnormal lab findings: Abnormal Labs 07/08/20 07/08/20 07/08/20 17:38 17:38 17:38 WBC Hgb 16.1 H Hct 47.8 H MCV 95 H RDW 12.4 L Lymph % (Auto) 12.0 L Lymph # (Auto) 1.0 L Seg Neutrophils % 83.6 H Seg Neutrophils # D-Dimer 284.74 H Sodium Potassium Chloride BUN Creatinine Glucose Lactic Acid 2.40 H* Ferritin AST Lactate Dehydrogenase C-Reactive Protein Total Protein Albumin Coronavirus (PCR) 07/08/20 07/08/20 07/08/20 17:38 17:38 17:38 WBC Hgb Hct MCV RDW Lymph % (Auto) Lymph # (Auto) Seg Neutrophils % Seg Neutrophils # D-Dimer Sodium 133 L Potassium Chloride 92.8 L BUN 22 H Creatinine Glucose 131 H 128 H Lactic Acid Ferritin > 2000.0 H AST 56 H Lactate Dehydrogenase 604 H C-Reactive Protein 29.00 H Total Protein 8.4 H Albumin 3.5 L Coronavirus (PCR) 07/09/20 07/09/20 07/09/20 06:00 06:00 08:38 WBC Hgb Hct MCV RDW 12.3 L Lymph % (Auto) 5.4 L Lymph # (Auto) 0.4 L Seg Neutrophils % 89.4 H Seg Neutrophils # D-Dimer Sodium Potassium Chloride BUN 23 H Creatinine Glucose 179 H Lactic Acid Ferritin AST Lactate Dehydrogenase C-Reactive Protein Total Protein Albumin Coronavirus (PCR) Positive A 07/10/20 07/10/20 07/10/20 04:52 04:52 14:59 WBC 11.3 H Hgb Hct MCV RDW 12.3 L Lymph % (Auto) 6.7 L Lymph # (Auto) 0.8 L Seg Neutrophils % 89.2 H Seg Neutrophils # 10.1 H D-Dimer 371.35 H Sodium 136 L Potassium Chloride BUN Creatinine Glucose 134 H Lactic Acid Ferritin AST Lactate Dehydrogenase C-Reactive Protein Total Protein Albumin Coronavirus (PCR) 07/10/20 07/10/20 07/11/20 14:59 14:59 04:36 WBC Hgb Hct MCV RDW Lymph % (Auto) Lymph # (Auto) Seg Neutrophils % Seg Neutrophils # D-Dimer Sodium 136 L Potassium 5.4 H Chloride BUN Creatinine Glucose 140 H Lactic Acid Ferritin 2974.0 H AST Lactate Dehydrogenase 440 H C-Reactive Protein 8.30 H Total Protein Albumin 3.2 L Coronavirus (PCR) 07/12/20 07/12/20 07/12/20 07:19 07:19 07:19 WBC Hgb Hct MCV RDW Lymph % (Auto) Lymph # (Auto) Seg Neutrophils % Seg Neutrophils # D-Dimer 4581.64 H Sodium Potassium Chloride BUN Creatinine Glucose Lactic Acid Ferritin > 950.0 H AST Lactate Dehydrogenase 406 H C-Reactive Protein 11.10 H Total Protein Albumin Coronavirus (PCR) 07/13/20 07/13/20 07/16/20 04:26 04:26 08:53 WBC Hgb Hct MCV RDW 12.4 L 12.7 L Lymph % (Auto) Lymph # (Auto) Seg Neutrophils % Seg Neutrophils # D-Dimer Sodium 136 L Potassium Chloride BUN Creatinine 0.7 L Glucose 119 H Lactic Acid Ferritin AST Lactate Dehydrogenase C-Reactive Protein Total Protein Albumin Coronavirus (PCR) 07/16/20 07/16/20 07/16/20 08:53 21:15 21:15 WBC Hgb Hct MCV RDW Lymph % (Auto) Lymph # (Auto) Seg Neutrophils % Seg Neutrophils # D-Dimer 1116.17 H Sodium 134 L Potassium Chloride 96.3 L BUN 21 H Creatinine Glucose 136 H Lactic Acid Ferritin > 2000.0 H AST Lactate Dehydrogenase C-Reactive Protein Total Protein Albumin Coronavirus (PCR) 07/16/20 07/18/20 21:15 11:24 WBC Hgb Hct MCV RDW Lymph % (Auto) Lymph # (Auto) Seg Neutrophils % Seg Neutrophils # D-Dimer Sodium 130 L Potassium Chloride 94.6 L BUN 24 H Creatinine Glucose 109 H Lactic Acid Ferritin AST Lactate Dehydrogenase 337 H C-Reactive Protein 7.30 H Total Protein Albumin Coronavirus (PCR)
[2020-07-19] MEDS: guaiFENesin 100 MG/5 ML ORAL LIQD PO PRN (21:38)
[2020-07-20] MEDS: ASCORBIC ACID 500 MG TAB PO SCH ×2 (09:02→21:28)
[2020-07-20] MEDS: ZINC SULFATE 220 MG CAP PO SCH (09:02)
[2020-07-20] MEDS: CHOLECALCIFEROL (VIT D3) 5,000 UNIT TAB PO SCH (09:02)
[2020-07-20] MEDS: ENOXAPARIN 40 MG/0.4 ML INJ SUB-Q SCH ×2 (09:03→21:28)
[2020-07-20 10:52] LABS: BUN/Creatinine Ratio 18; Blood Urea Nitrogen 16 mg/dL (9-20); Hemolysis Index 6
--- NOTE | 2020-07-20 11:17 | Progress Note ---
Assessment and Plan 54 y/o male with acute respiratory failure found to be COVID positive. Prone as tolerated during the day, and sleep prone at night. Improving with this. hold on lasix therapy today. Finished steroids Wean FiO2 for sats >88% Please do not give IVF's unless absolutely needed. Guarded prognosis. Subjective Date of service: 07/20/20 Principal diagnosis: Covid Interval history: Still on 6 liters with good sats. Objective Vital Signs - 12hr 07/20/20 07/20/20 00:23 06:15 Temperature 98.2 F 98.6 F Pulse Rate 103 H 83 Respiratory 22 20 Rate Blood Pressure 107/72 120/76 O2 Sat by Pulse 90 99 Oximetry Constitutional: alert, other (critically ill on HFNC) Eyes: non-icteric ENT: oropharynx moist Neck: supple Effort: normal Ascultation: Bilateral: clear Cardiovascular: regular rate and rhythm (no mrg) Gastrointestinal: normoactive bowel sounds, soft, non-distended Integumentary: normal Extremities: no cyanosis, no edema, pink and warm Neurologic: normal mental status, non-focal exam Psychiatric: mood appropriate, affect normal CBC and BMP: 07/16/20 08:53 07/20/20 10:09 ABG, PT/INR, D-dimer: PT/INR, D-dimer PT 13.3 Sec. (12.2-14.9) 07/09/20 06:00 INR 1.03 (0.87-1.13) 07/09/20 06:00 D-Dimer 1116.17 ng/mlDDU (0-234) H 07/16/20 21:15 Abnormal lab findings: Abnormal Labs 07/08/20 07/08/20 07/08/20 17:38 17:38 17:38 WBC Hgb 16.1 H Hct 47.8 H MCV 95 H RDW 12.4 L Lymph % (Auto) 12.0 L Lymph # (Auto) 1.0 L Seg Neutrophils % 83.6 H Seg Neutrophils # D-Dimer 284.74 H Sodium Potassium Chloride BUN Creatinine Glucose Lactic Acid 2.40 H* Ferritin AST Lactate Dehydrogenase C-Reactive Protein Total Protein Albumin Coronavirus (PCR) 07/08/20 07/08/20 07/08/20 17:38 17:38 17:38 WBC Hgb Hct MCV RDW Lymph % (Auto) Lymph # (Auto) Seg Neutrophils % Seg Neutrophils # D-Dimer Sodium 133 L Potassium Chloride 92.8 L BUN 22 H Creatinine Glucose 131 H 128 H Lactic Acid Ferritin > 2000.0 H AST 56 H Lactate Dehydrogenase 604 H C-Reactive Protein 29.00 H Total Protein 8.4 H Albumin 3.5 L Coronavirus (PCR) 07/09/20 07/09/20 07/09/20 06:00 06:00 08:38 WBC Hgb Hct MCV RDW 12.3 L Lymph % (Auto) 5.4 L Lymph # (Auto) 0.4 L Seg Neutrophils % 89.4 H Seg Neutrophils # D-Dimer Sodium Potassium Chloride BUN 23 H Creatinine Glucose 179 H Lactic Acid Ferritin AST Lactate Dehydrogenase C-Reactive Protein Total Protein Albumin Coronavirus (PCR) Positive A 07/10/20 07/10/20 07/10/20 04:52 04:52 14:59 WBC 11.3 H Hgb Hct MCV RDW 12.3 L Lymph % (Auto) 6.7 L Lymph # (Auto) 0.8 L Seg Neutrophils % 89.2 H Seg Neutrophils # 10.1 H D-Dimer 371.35 H Sodium 136 L Potassium Chloride BUN Creatinine Glucose 134 H Lactic Acid Ferritin AST Lactate Dehydrogenase C-Reactive Protein Total Protein Albumin Coronavirus (PCR) 07/10/20 07/10/20 07/11/20 14:59 14:59 04:36 WBC Hgb Hct MCV RDW Lymph % (Auto) Lymph # (Auto) Seg Neutrophils % Seg Neutrophils # D-Dimer Sodium 136 L Potassium 5.4 H Chloride BUN Creatinine Glucose 140 H Lactic Acid Ferritin 2974.0 H AST Lactate Dehydrogenase 440 H C-Reactive Protein 8.30 H Total Protein Albumin 3.2 L Coronavirus (PCR) 07/12/20 07/12/20 07/12/20 07:19 07:19 07:19 WBC Hgb Hct MCV RDW Lymph % (Auto) Lymph # (Auto) Seg Neutrophils % Seg Neutrophils # D-Dimer 4581.64 H Sodium Potassium Chloride BUN Creatinine Glucose Lactic Acid Ferritin > 950.0 H AST Lactate Dehydrogenase 406 H C-Reactive Protein 11.10 H Total Protein Albumin Coronavirus (PCR) 07/13/20 07/13/20 07/16/20 04:26 04:26 08:53 WBC Hgb Hct MCV RDW 12.4 L 12.7 L Lymph % (Auto) Lymph # (Auto) Seg Neutrophils % Seg Neutrophils # D-Dimer Sodium 136 L Potassium Chloride BUN Creatinine 0.7 L Glucose 119 H Lactic Acid Ferritin AST Lactate Dehydrogenase C-Reactive Protein Total Protein Albumin Coronavirus (PCR) 07/16/20 07/16/20 07/16/20 08:53 21:15 21:15 WBC Hgb Hct MCV RDW Lymph % (Auto) Lymph # (Auto) Seg Neutrophils % Seg Neutrophils # D-Dimer 1116.17 H Sodium 134 L Potassium Chloride 96.3 L BUN 21 H Creatinine Glucose 136 H Lactic Acid Ferritin > 2000.0 H AST Lactate Dehydrogenase C-Reactive Protein Total Protein Albumin Coronavirus (PCR) 07/16/20 07/18/20 07/20/20 21:15 11:24 10:09 WBC Hgb Hct MCV RDW Lymph % (Auto) Lymph # (Auto) Seg Neutrophils % Seg Neutrophils # D-Dimer Sodium 130 L 131 L Potassium Chloride 94.6 L 95.7 L BUN 24 H Creatinine Glucose 109 H 155 H Lactic Acid Ferritin AST Lactate Dehydrogenase 337 H C-Reactive Protein 7.30 H Total Protein Albumin Coronavirus (PCR)
--- NOTE | 2020-07-20 19:06 | Progress Note ---
<TERESA CHAMBERS - Last Filed: 07/20/20 19:07> Assessment and Plan Assessment and plan: (1) Sepsis Current Visit: Yes Status: Acute Plan to address problem: -Presented with hypotension, acute hypoxic respiratory failure, febrile, leukocytosis and pneumonia on CXR -Infectious disease consulted, appreciate recommendation -Antibiotic therapy -07/08 blood cultures x2 with no growth after 5 days -07/08 urinalysis negative for leukocyte esterase and nitrates (2) Bilateral pneumonia secondary to COVID-19 infection Current Visit: Yes Status: Acute Plan to address problem: -Tested positive for COVID-19 few days prior to presentation -07/09 COVID-19 PCR positive -Infectious disease and pulmonology consulted, appreciate recommendations -Droplet/contact isolation -Supplemental oxygen as needed -Trend inflammatory markers -Prone to sleep as needed -Vitamin D, vitamin C, zinc -S/p remdesivir and steroid therapy -Pulmonary hygiene -OOB 3 times daily -Anticoagulation per protocol (3) Acute hypoxic respiratory failure due to COVID-19 Current Visit: Yes Status: Acute Plan to address problem: -Supplemental oxygen as needed -Pulmonary consult -Pulmonary hygiene -SPO2 monitoring (4) DVT prophylaxis Current Visit: Yes Status: Acute Plan to address problem: -Patient placed on subcutaneous Lovenox. -SCDs to bilateral shins while in bed History Interval history: 54-year-old male with hypertension who presented to the emergency department on 07/08 with complaints of shortness of breath and generalized weakness. He tested positive for COVID-19 3 days prior to presentation. Upon arrival to the emergency department he was hypotensive, febrile, tachypneic and hypoxic and was placed on 3 L oxygen via nasal cannula. His CXR showed bilateral pneumonia and he had lactic acidosis. Patient was initiated on sepsis protocol, started on antibiotics and steroid therapy. He was admitted to the hospital with pneumonia secondary to COVID-19. Infectious disease and pulmonology were consulted. Rufino valderrama at the time my examination patient is on 5 L nasal cannula and this morning I ordered a ambulatory SPO2. Patient is status post remdesivir and steroid therapy. Possible discharge in the a.m. if ambulatory SPO2 is acceptable. No acute events reported overnight. 07/09/2020; patient is admitted for sepsis secondary to Covid-19 pneumonia versus bacterial pneumonia. Patient is on IV Decadron and ID is consulted for remdesivir treatment. Patient is still short of breath, on 10 L of high flow oxygen. 07/10/2020; patient is on high flow oxygen, hyper etc. secondary to COVID-19 pneumonia versus bacterial pneumonia. Continue with IV antibiotics, remdesivir and Decadron. Pulmonary and ID consult appreciated. Patient is on intermediate dose of Lovenox for COVID-19 pneumonia. 07/11: Continue to wean high flow as tolerated. Continue COVID-19 protocol per [facility] policy. ID and pulmonary input noted. 07/12: Continue current management wean as tolerated. Continues on remdesivir and Decadron. We will give a dose of Lasix today. Continue to monitor I's and O's. Patient wants cough suppressant discussed the effectiveness of good cough to help keep the airways open. Trial of Robitussin for comfort measures. Patient remains critically ill. We will also check a serum muscularity we will add some vitamins supplementation. 07/13; still with fever, unfortunately appears that the oxygen demand went up. Patient received a dose of Lasix yesterday. Cough is slightly improving. We will continue current management. Prognosis remains guarded 07/14: Continue supportive care, will give additional lasix today. Oxygen FIO2 down to 80% with sat 94% 07/15: Continue supportive care. Will hold off on Lasix today and repeat may be tomorrow. Remains on high flow oxygen at this time. Prognosis is still guarded 07/17; patient is critically ill, on high flow oxygen, worsening inflammatory markers, poor prognosis We will continue current management, consults recommendations followed 07/18: Continues to show some improvement. ID and pulmonary input appreciated Lasix given today. Continue to wean as tolerated 07/19: Stefany on high flow although clinically improving continue to encourage prone positioning. Complete steroid therapy as prescribed. Patient has completed remdesivir. Hospitalist Physical - Constitutional Vitals: Temp Pulse Resp BP Pulse Ox 99.6 F 98 H 18 121/70 96 07/20/20 11:41 07/20/20 11:41 07/20/20 11:41 07/20/20 11:41 07/20/20 11:41 General appearance: Present: no acute distress, well-nourished - EENT Eyes: Present: PERRL, EOM intact ENT: hearing intact, dentition normal - Neck Neck: Present: normal ROM - Respiratory Respiratory effort: normal Respiratory: bilateral: diminished - Cardiovascular Rhythm: regular Heart Sounds: Present: S1 & S2. Absent: systolic murmur, diastolic murmur - Extremities Extremities: no ischemia, pulses intact, pulses symmetrical, No edema, normal temperature, normal color, Full ROM Peripheral Pulses: within normal limits - Abdominal General gastrointestinal: soft, non-tender, non-distended, normal bowel sounds - Integumentary Integumentary: Present: clear, warm, dry - Psychiatric Psychiatric: appropriate mood/affect, cooperative - Neurologic Neurologic: CNII-XII intact, no focal deficits, moves all extremities Results - Labs CBC & Chem 7: 07/16/20 08:53 07/20/20 10:09 Labs: Laboratory Last Values WBC 9.3 K/mm3 (4.5-11.0) 07/16/20 08:53 RBC 4.64 M/mm3 (3.65-5.03) 07/16/20 08:53 Hgb 14.5 gm/dl (11.8-15.2) 07/16/20 08:53 Hct 43.7 % (35.5-45.6) 07/16/20 08:53 MCV 94 fl (84-94) 07/16/20 08:53 MCH 31 pg (28-32) 07/16/20 08:53 MCHC 33 % (32-34) 07/16/20 08:53 RDW 12.7 % (13.2-15.2) L 07/16/20 08:53 Plt Count 411 K/mm3 (140-440) 07/16/20 08:53 Lymph % (Auto) 6.7 % (13.4-35.0) L 07/10/20 04:52 [place] % (Auto) 3.8 % (0.0-7.3) 07/10/20 04:52 Eos % (Auto) 0.0 % (0.0-4.3) 07/10/20 04:52 Baso % (Auto) 0.3 % (0.0-1.8) 07/10/20 04:52 Lymph # (Auto) 0.8 K/mm3 (1.2-5.4) L 07/10/20 04:52 [place] # (Auto) 0.4 K/mm3 (0.0-0.8) 07/10/20 04:52 Eos # (Auto) 0.0 K/mm3 (0.0-0.4) 07/10/20 04:52 Baso # (Auto) 0.0 K/mm3 (0.0-0.1) 07/10/20 04:52 Seg Neutrophils % 89.2 % (40.0-70.0) H 07/10/20 04:52 Seg Neutrophils # 10.1 K/mm3 (1.8-7.7) H 07/10/20 04:52 PT 13.3 Sec. (12.2-14.9) 07/09/20 06:00 INR 1.03 (0.87-1.13) 07/09/20 06:00 D-Dimer 1116.17 ng/mlDDU (0-234) H 07/16/20 21:15 Sodium 131 mmol/L (137-145) L 07/20/20 10:09 Potassium 4.2 mmol/L (3.6-5.0) 07/20/20 10:09 Chloride 95.7 mmol/L (98-107) L 07/20/20 10:09 Carbon Dioxide 29 mmol/L (22-30) 07/20/20 10:09 Anion Gap 11 mmol/L 07/20/20 10:09 BUN 16 mg/dL (9-20) 07/20/20 10:09 Creatinine 0.9 mg/dL (0.8-1.3) 07/20/20 10:09 Estimated GFR > 60 ml/min 07/20/20 10:09 BUN/Creatinine Ratio 18 % 07/20/20 10:09 Glucose 155 mg/dL (75-100) H 07/20/20 10:09 Osmolality 288 Mosm/kg 07/12/20 13:42 Lactic Acid 1.00 mmol/L (0.7-2.0) 07/08/20 20:58 Calcium 9.0 mg/dL (8.4-10.2) 07/20/20 10:09 Phosphorus 3.10 mg/dL (2.5-4.5) 07/18/20 11:24 Magnesium 2.10 mg/dL (1.7-2.3) 07/18/20 11:24 Ferritin > 2000.0 ng/mL (30.0-300.0) H 07/16/20 21:15 Total Bilirubin 0.20 mg/dL (0.1-1.2) 07/11/20 04:36 Direct Bilirubin < 0.2 mg/dL (0-0.2) 07/11/20 04:36 Indirect Bilirubin 0.0 mg/dL 07/11/20 04:36 AST 33 units/L (5-40) 07/11/20 04:36 ALT 26 units/L (7-56) 07/11/20 04:36 Alkaline Phosphatase 51 units/L (35-129) 07/11/20 04:36 Lactate Dehydrogenase 337 units/L (91-180) H 07/16/20 21:15 C-Reactive Protein 7.30 mg/dL (0.00-1.30) H 07/16/20 21:15 Total Protein 6.3 g/dL (6.3-8.2) D 07/11/20 04:36 Albumin 3.2 g/dL (3.9-5) L 07/11/20 04:36 Albumin/Globulin Ratio 1.0 % 07/11/20 04:36 Procalcitonin 0.22 ng/mL (<0.15) 07/08/20 17:38 Urine Color Jaclyn (Yellow) 07/08/20 18:30 Urine Turbidity Clear (Clear) 07/08/20 18:30 Urine pH 5.0 (5.0-7.0) 07/08/20 18:30 Ur Specific [place] 1.027 (1.003-1.030) 07/08/20 18:30 Urine Protein >500 mg/dL (Negative) 07/08/20 18:30 Urine Glucose (UA) Neg mg/dL (Negative) 07/08/20 18:30 Urine Ketones Neg mg/dL (Negative) 07/08/20 18:30 Urine Blood Neg (Negative) 07/08/20 18:30 Urine Nitrite Neg (Negative) 07/08/20 18:30 Urine Bilirubin Neg (Negative) 07/08/20 18:30 Urine Urobilinogen 4.0 mg/dL (<2.0) 07/08/20 18:30 Ur Leukocyte Esterase Neg (Negative) 07/08/20 18:30 Urine WBC (Auto) 2.0 /HPF (0.0-6.0) 07/08/20 18:30 Urine RBC (Auto) 2.0 /HPF (0.0-6.0) 07/08/20 18:30 U Epithel Cells (Auto) 1.0 /HPF (0-13.0) 07/08/20 18:30 Urine Mucus Few /HPF 07/08/20 18:30 Nasal Screen MRSA (PCR) Negative (Negative) 07/11/20 18:05 Coronavirus (PCR) Positive (Negative) A 07/09/20 08:38 Qiu/IV: Voiding Method Toilet IV Catheter Type [Right Peripheral IV Antecubital] IV Catheter Type [Left Peripheral IV Antecubital] Active Medications - Current Medications Current Medications: Generic Name Dose Route Start Last Admin Trade Name Freq PRN Reason Stop Dose Admin Acetaminophen 650 mg 07/08/20 21:33 07/12/20 15:29 Acetaminophen 325 Mg Tab PO 650 mg Q4H PRN Administration Pain MILD(1-3)/Fever >100.5/MORENO Ascorbic Acid 1,000 mg 07/12/20 10:00 07/20/20 09:02 Ascorbic Acid 500 Mg Tab PO 1,000 mg BID BRIANNA Administration Cholecalciferol 5,000 unit 07/12/20 10:00 07/20/20 09:02 Cholecalciferol (Vit D3) 5,000 Unit Tab PO 5,000 unit DAILY BRIANNA Administration Enoxaparin Sodium 40 mg 07/10/20 10:00 07/20/20 09:03 Enoxaparin 40 Mg/0.4 Ml Inj SUB-Q 40 mg BID BRIANNA Administration Protocol Guaifenesin 200 mg 07/14/20 22:07 07/19/20 21:38 Guaifenesin 100 Mg/5 Ml Oral Liqd PO 200 mg Q4H PRN Administration Cough Magnesium Hydroxide 30 ml 07/08/20 21:33 07/19/20 13:35 Magnesium Hydroxide (Mom) Oral Liqd Udc PO 30 ml Q4H PRN Administration Constipation Ondansetron HCl 4 mg 07/08/20 21:33 07/16/20 21:00 Ondansetron 4 Mg/2 Ml Inj IV 4 mg Q8H PRN Administration Nausea And Vomiting Oxycodone HCl 5 mg 07/09/20 17:00 07/10/20 17:13 Oxycodone 5 Mg Tab PO 5 mg Q6H PRN Administration Pain, Moderate (4-6) Pseudoephedrine/Acetam/Chlorphenir 15 ml 07/09/20 12:00 07/12/20 15:29 Guaifenesin/Codeine 100-10mg Oral Liqd 5 Ml PO 15 ml Q4H PRN Administration Cough Sodium Chloride 10 ml 07/08/20 22:00 07/20/20 09:03 Sodium Chloride 0.9% 10 Ml Flush Syringe IV 10 ml BID BRIANNA Administration Sodium Chloride 10 ml 07/08/20 21:33 Sodium Chloride 0.9% 10 Ml Flush Syringe IV PRN PRN LINE FLUSH Zinc Sulfate 220 mg 07/12/20 10:00 07/20/20 09:02 Zinc Sulfate 220 Mg Cap PO 220 mg QDAY BRIANNA Administration Nutrition/Malnutrition Assess - Dietary Evaluation Nutrition/Malnutrition Findings: Nutrition Notes Start: 07/12/20 10:48 Freq: Status: Active Protocol: Document 07/19/20 13:23 LM (Rec: 07/19/20 13:26 LM [email or web address]) Nutrition Notes Initial or Follow up Brief Note Weight change and time frame 5% wt loss in 1 week Subjective/Other Information Pt stated he is eating well now and [employer] and experienced wt loss last week due to illness . Pt stated he is doing better now. Food preferences noted. Minimum of two criteria No Interpretation of Weight Loss (severe) >2% in 1 week Nutrition Intervention Revisit per MD consult or patient Sign Off request: <JEANETTE BEACH E - Last Filed: 07/21/20 11:34> Assessment and Plan Assessment and plan: I did not personally evaluate the patient but reviewed chart and provided virtual support to INSURANCE AGENT helping with surge of patients due to covid pandemic Hospitalist Physical - Constitutional Vitals: Temp Pulse Resp BP Pulse Ox 98.5 F 86 20 122/85 97 07/21/20 05:32 07/21/20 05:32 07/21/20 05:32 07/21/20 05:32 07/21/20 10:00 Results - Labs CBC & Chem 7: 07/16/20 08:53 07/20/20 10:09 Labs: Laboratory Last Values WBC 9.3 K/mm3 (4.5-11.0) 07/16/20 08:53 RBC 4.64 M/mm3 (3.65-5.03) 07/16/20 08:53 Hgb 14.5 gm/dl (11.8-15.2) 07/16/20 08:53 Hct 43.7 % (35.5-45.6) 07/16/20 08:53 MCV 94 fl (84-94) 07/16/20 08:53 MCH 31 pg (28-32) 07/16/20 08:53 MCHC 33 % (32-34) 07/16/20 08:53 RDW 12.7 % (13.2-15.2) L 07/16/20 08:53 Plt Count 411 K/mm3 (140-440) 07/16/20 08:53 Lymph % (Auto) 6.7 % (13.4-35.0) L 07/10/20 04:52 [place] % (Auto) 3.8 % (0.0-7.3) 07/10/20 04:52 Eos % (Auto) 0.0 % (0.0-4.3) 07/10/20 04:52 Baso % (Auto) 0.3 % (0.0-1.8) 07/10/20 04:52 Lymph # (Auto) 0.8 K/mm3 (1.2-5.4) L 07/10/20 04:52 [place] # (Auto) 0.4 K/mm3 (0.0-0.8) 07/10/20 04:52 Eos # (Auto) 0.0 K/mm3 (0.0-0.4) 07/10/20 04:52 Baso # (Auto) 0.0 K/mm3 (0.0-0.1) 07/10/20 04:52 Seg Neutrophils % 89.2 % (40.0-70.0) H 07/10/20 04:52 Seg Neutrophils # 10.1 K/mm3 (1.8-7.7) H 07/10/20 04:52 PT 13.3 Sec. (12.2-14.9) 07/09/20 06:00 INR 1.03 (0.87-1.13) 07/09/20 06:00 D-Dimer 1116.17 ng/mlDDU (0-234) H 07/16/20 21:15 Sodium 131 mmol/L (137-145) L 07/20/20 10:09 Potassium 4.2 mmol/L (3.6-5.0) 07/20/20 10:09 Chloride 95.7 mmol/L (98-107) L 07/20/20 10:09 Carbon Dioxide 29 mmol/L (22-30) 07/20/20 10:09 Anion Gap 11 mmol/L 07/20/20 10:09 BUN 16 mg/dL (9-20) 07/20/20 10:09 Creatinine 0.9 mg/dL (0.8-1.3) 07/20/20 10:09 Estimated GFR > 60 ml/min 07/20/20 10:09 BUN/Creatinine Ratio 18 % 07/20/20 10:09 Glucose 155 mg/dL (75-100) H 07/20/20 10:09 Osmolality 288 Mosm/kg 07/12/20 13:42 Lactic Acid 1.00 mmol/L (0.7-2.0) 07/08/20 20:58 Calcium 9.0 mg/dL (8.4-10.2) 07/20/20 10:09 Phosphorus 3.10 mg/dL (2.5-4.5) 07/18/20 11:24 Magnesium 2.10 mg/dL (1.7-2.3) 07/18/20 11:24 Ferritin > 2000.0 ng/mL (30.0-300.0) H 07/16/20 21:15 Total Bilirubin 0.20 mg/dL (0.1-1.2) 07/11/20 04:36 Direct Bilirubin < 0.2 mg/dL (0-0.2) 07/11/20 04:36 Indirect Bilirubin 0.0 mg/dL 07/11/20 04:36 AST 33 units/L (5-40) 07/11/20 04:36 ALT 26 units/L (7-56) 07/11/20 04:36 Alkaline Phosphatase 51 units/L (35-129) 07/11/20 04:36 Lactate Dehydrogenase 337 units/L (91-180) H 07/16/20 21:15 C-Reactive Protein 7.30 mg/dL (0.00-1.30) H 07/16/20 21:15 Total Protein 6.3 g/dL (6.3-8.2) D 07/11/20 04:36 Albumin 3.2 g/dL (3.9-5) L 07/11/20 04:36 Albumin/Globulin Ratio 1.0 % 07/11/20 04:36 Procalcitonin 0.22 ng/mL (<0.15) 07/08/20 17:38 Urine Color [place] (Yellow) 07/08/20 18:30 Urine Turbidity Clear (Clear) 07/08/20 18:30 Urine pH 5.0 (5.0-7.0) 07/08/20 18:30 Ur Specific [place] 1.027 (1.003-1.030) 07/08/20 18:30 Urine Protein >500 mg/dL (Negative) 07/08/20 18:30 Urine Glucose (UA) Neg mg/dL (Negative) 07/08/20 18:30 Urine Ketones Neg mg/dL (Negative) 07/08/20 18:30 Urine Blood Neg (Negative) 07/08/20 18:30 Urine Nitrite Neg (Negative) 07/08/20 18:30 Urine Bilirubin Neg (Negative) 07/08/20 18:30 Urine Urobilinogen 4.0 mg/dL (<2.0) 07/08/20 18:30 Ur Leukocyte Esterase Neg (Negative) 07/08/20 18:30 Urine WBC (Auto) 2.0 /HPF (0.0-6.0) 07/08/20 18:30 Urine RBC (Auto) 2.0 /HPF (0.0-6.0) 07/08/20 18:30 U Epithel Cells (Auto) 1.0 /HPF (0-13.0) 07/08/20 18:30 Urine Mucus Few /HPF 07/08/20 18:30 Nasal Screen MRSA (PCR) Negative (Negative) 07/11/20 18:05 Coronavirus (PCR) Positive (Negative) A 07/09/20 08:38 Qiu/IV: Voiding Method Toilet IV Catheter Type [Right Peripheral IV Antecubital] IV Catheter Type [Left Peripheral IV Antecubital] Active Medications - Current Medications Current Medications: Generic Name Dose Route Start Last Admin Trade Name Freq PRN Reason Stop Dose Admin Acetaminophen 650 mg 07/08/20 21:33 07/12/20 15:29 Acetaminophen 325 Mg Tab PO 650 mg Q4H PRN Administration Pain MILD(1-3)/Fever >100.5/MORENO Ascorbic Acid 1,000 mg 07/12/20 10:00 07/21/20 10:59 Ascorbic Acid 500 Mg Tab PO 1,000 mg BID BRIANNA Administration Cholecalciferol 5,000 unit 07/12/20 10:00 07/21/20 11:00 Cholecalciferol (Vit D3) 5,000 Unit Tab PO 5,000 unit DAILY BRIANNA Administration Enoxaparin Sodium 40 mg 07/10/20 10:00 07/21/20 10:59 Enoxaparin 40 Mg/0.4 Ml Inj SUB-Q 40 mg BID BRIANNA Administration Protocol Guaifenesin 200 mg 07/14/20 22:07 07/19/20 21:38 Guaifenesin 100 Mg/5 Ml Oral Liqd PO 200 mg Q4H PRN Administration Cough Magnesium Hydroxide 30 ml 07/08/20 21:33 07/19/20 13:35 Magnesium Hydroxide (Mom) Oral Liqd Udc PO 30 ml Q4H PRN Administration Constipation Ondansetron HCl 4 mg 07/08/20 21:33 07/16/20 21:00 Ondansetron 4 Mg/2 Ml Inj IV 4 mg Q8H PRN Administration Nausea And Vomiting Oxycodone HCl 5 mg 07/09/20 17:00 07/10/20 17:13 Oxycodone 5 Mg Tab PO 5 mg Q6H PRN Administration Pain, Moderate (4-6) Pseudoephedrine/Acetam/Chlorphenir 15 ml 07/09/20 12:00 07/12/20 15:29 Guaifenesin/Codeine 100-10mg Oral Liqd 5 Ml PO 15 ml Q4H PRN Administration Cough Sodium Chloride 10 ml 07/08/20 22:00 07/21/20 11:00 Sodium Chloride 0.9% 10 Ml Flush Syringe IV 10 ml BID BRIANNA Administration Sodium Chloride 10 ml 07/08/20 21:33 Sodium Chloride 0.9% 10 Ml Flush Syringe IV PRN PRN LINE FLUSH Zinc Sulfate 220 mg 07/12/20 10:00 07/21/20 10:59 Zinc Sulfate 220 Mg Cap PO 220 mg QDAY BRIANNA Administration Nutrition/Malnutrition Assess - Dietary Evaluation Nutrition/Malnutrition Findings: Nutrition Notes Start: 07/12/20 10:48 Freq: Status: Active Protocol: Document 07/19/20 13:23 LM (Rec: 07/19/20 13:26 LM [email or web address]) Nutrition Notes Initial or Follow up Brief Note Weight change and time frame 5% wt loss in 1 week Subjective/Other Information Pt stated he is eating well now and [employer] and experienced wt loss last week due to illness . Pt stated he is doing better now. Food preferences noted. Minimum of two criteria No Interpretation of Weight Loss (severe) >2% in 1 week Nutrition Intervention Revisit per MD consult or patient Sign Off request:
[2020-07-21] MEDS: ENOXAPARIN 40 MG/0.4 ML INJ SUB-Q SCH ×2 (10:59→22:30)
[2020-07-21] MEDS: ASCORBIC ACID 500 MG TAB PO SCH ×2 (10:59→22:30)
[2020-07-21] MEDS: ZINC SULFATE 220 MG CAP PO SCH (10:59)
[2020-07-21] MEDS: CHOLECALCIFEROL (VIT D3) 5,000 UNIT TAB PO SCH (11:00)
--- NOTE | 2020-07-21 11:15 | Discharge Summary ---
Providers - Providers Date of Admission: 07/08/20 21:35 Attending physician: JEANETTE BEACH MD 07/08/20 21:33 Consult to Physician [CONS] Routine Comment: Consulting Provider: SPEEDY SPARROW Physician Instructions: Reason For Exam: Edwar. Pneumonia, Covid 19 positive 07/09/20 08:58 Consult to Physician [CONS] Routine Comment: Consulting Provider: HEBER MAYNARD Physician Instructions: Reason For Exam: COVID PNA Primary care physician: OLDER ADULT SOCIAL WORK SPECIALIST Hospitalization Reason for admission: COVID 19 PNEUMONIA Condition: Stable Hospital course: 54-year-old male with hypertension who presented to the emergency department on 07/08 with complaints of shortness of breath and generalized weakness. He tested positive for COVID-19 3 days prior to presentation. Upon arrival to the emergency department he was hypotensive, febrile, tachypneic and hypoxic and was placed on 3 L oxygen via nasal cannula. His CXR showed bilateral pneumonia and he had lactic acidosis. Patient was initiated on sepsis protocol, started on antibiotics and steroid therapy. He was admitted to the hospital with pneumonia secondary to COVID-19. Infectious disease and pulmonology were consulted. Today at the time my examination patient is on 5 L nasal cannula and this morning I ordered a ambulatory SPO2. Patient is status post remdesivir and st eroid therapy. Possible discharge in the a.m. if ambulatory SPO2 is acceptable. No acute events reported overnight. 07/09/2020; patient is admitted for sepsis secondary to Covid-19 pneumonia versu s bacterial pneumonia. Patient is on IV Decadron and ID is consulted for remdesivir treatment. Patient is still short of breath, on 10 L of high flow oxygen. 07/10/2020; patient is on high flow oxygen, hyper etc. secondary to COVID-19 pneumonia versus bacterial pneumonia. Continue with IV antibiotics, remdesivir and Decadron. Pulmonary and ID consult appreciated. Patient is on intermediate dose of Lovenox for COVID-19 pneumonia. 07/11: Continue to wean high flow as tolerated. Continue COVID-19 protocol per [facility] policy. ID and pulmonary input noted. 07/12: Continue current management wean as tolerated. Continues on remdesivir and Decadron. We will give a dose of Lasix today. Continue to monitor I's and O's. Patient wants cough suppressant discussed the effectiveness of good cough to help keep the airways open. Trial of Robitussin for comfort measures. Patient remains critically ill. We will also check a serum muscularity we will add some vitamins supplementation. 07/13; still with fever, unfortunately appears that the oxygen demand went up. Patient received a dose of Lasix yesterday. Cough is slightly improving. We will continue current management. Prognosis remains guarded 07/14: Continue supportive care, will give additional lasix today. Oxygen FIO2 down to 80% with sat 94% 07/15: Continue supportive care. Will hold off on Lasix today and repeat may be tomorrow. Remains on high flow oxygen at this time. Prognosis is still guarded 07/17; patient is critically ill, on high flow oxygen, worsening inflammatory markers, poor prognosis We will continue current management, consults recommendations followed 07/18: Continues to show some improvement. ID and pulmonary input appreciated Lasix given today. Continue to wean as tolerated 07/19: Stefany on high flow although clinically improving continue to encourage prone positioning. Complete steroid therapy as prescribed. Patient has completed remdesivir. 07/21/20; Clinically improved although still Hypoxic on Room air. Plan was to discharge on oxygen but patients insurance does not cover oxygen at this time, will continue to monitor and wean oxygen as tolerated. Patient completed Remdesivir and Steroids. 07/22: Continue supportive care. wean oxygen as tolerated. Awaiting home o2 for discharge. can discontinue Tele, no events. 07/23: Continue to wean, patient awaiting Home oxygen. 07/24: Patient stable this morning, oxygen saturation at 92% on room air. Unfortunately could not obtain home o2 and needed further inpatient stay as a result. (1) Sepsis Current Visit: Yes Status: Acute Plan to address problem: -Presented with hypotension, acute hypoxic respiratory failure, febrile, leukocytosis and pneumonia on CXR -Infectious disease consulted, appreciate recommendation -Antibiotic therapy -07/08 blood cultures x2 with no growth after 5 days -07/08 urinalysis negative for leukocyte esterase and nitrates (2) Bilateral pneumonia secondary to COVID-19 infection Current Visit: Yes Status: Acute Plan to address problem: -Tested positive for COVID-19 few days prior to presentation -07/09 COVID-19 PCR positive -Infectious disease and pulmonology consulted, appreciate recommendations -Droplet/contact isolation -Supplemental oxygen as needed -Trend inflammatory markers -Prone to sleep as needed -Vitamin D, vitamin C, zinc -S/p remdesivir and steroid therapy -Pulmonary hygiene -OOB 3 times daily -Anticoagulation per protocol (3) Acute hypoxic respiratory failure due to COVID-19 Current Visit: Yes Status: Acute Plan to address problem: -Supplemental oxygen as needed -Pulmonary consult -Pulmonary hygiene -SPO2 monitoring (4) DVT prophylaxis Current Visit: Yes Status: Acute Plan to address problem: -Patient placed on subcutaneous Lovenox. -SCDs to bilateral shins while in bed Disposition: DC-01 TO HOME OR SELFCARE Time spent for discharge: 35 MINS Core Measure Documentation - Palliative Care Palliative Care/ Comfort Measures: Not Applicable - Core Measures Any of the following diagnoses?: none Exam - Physical Exam Narrative exam: no significant distress. Sitting up The patient appeared well nourished and normally developed. Vital signs as documented. Head exam is unremarkable. No scleral icterus . Neck is without jugular venous distension, thyromegaly, or carotid bruits. Lungs are clear to auscultation. Cardiac exam reveals regular rate and Rhythm. Abdominal exam reveals normal bowel sounds, nontender, no organomegaly. Extremities are nonedematous and both femoral and pedal pulses are normal. ANIME ARTIST: Alert and oriented 3. No focal weakness. - Constitutional Vitals: Temp Pulse Resp BP Pulse Ox 98.5 F 86 20 122/85 97 07/21/20 05:32 07/21/20 05:32 07/21/20 05:32 07/21/20 05:32 07/21/20 10:00 Plan Activity: advance as tolerated Diet: low fat Special Instructions: record daily weights, record daily BP diary Follow up with: PRIMARY MD VERNA [Primary Care Provider] - 3-5 Days HEBER MAYNARD MD [Staff Physician] - 7 Days Prescriptions: Apixaban [Eliquis] 2.5 mg PO BID #30 tablet guaiFENesin [Robitussin] 200 mg PO Q4H PRN 10 Days oral.liqd PRN Reason: Cough Ascorbic Acid [Vitamin C] 1,000 mg PO BID #60 tablet Cholecalciferol (Vitamin D3) [Vitamin D3] 5,000 unit PO DAILY #30 tablet Zinc Sulfate 220 mg PO QDAY #30 capsule
--- NOTE | 2020-07-22 04:31 | Progress Note ---
Assessment and Plan Assessment and plan: 54-year-old male with hypertension who presented to the emergency department on 07/08 with complaints of shortness of breath and generalized weakness. He tested positive for COVID-19 3 days prior to presentation. Upon arrival to the emergency department he was hypotensive, febrile, tachypneic and hypoxic and was placed on 3 L oxygen via nasal cannula. His CXR showed bilateral pneumonia and he had lactic acidosis. Patient was initiated on sepsis protocol, started on antibiotics and steroid therapy. He was admitted to the hospital with pneumonia secondary to COVID-19. Infectious disease and pulmonology were consulted. Today at the time my examination patient is on 5 L nasal cannula and this morning I ordered a ambulatory SPO2. Patient is status post remdesivir and steroid therapy. Possible discharge in the a.m. if ambulatory SPO2 is acceptable. No acute events reported overnight. 07/09/2020; patient is admitted for sepsis secondary to Covid-19 pneumonia versus bacterial pneumonia. Patient is on IV Decadron and ID is consulted for remdesivir treatment. Patient is still short of breath, on 10 L of high flow oxygen. 07/10/2020; patient is on high flow oxygen, hyper etc. secondary to COVID-19 pneumonia versus bacterial pneumonia. Continue with IV antibiotics, remdesivir and Decadron. Pulmonary and ID consult appreciated. Patient is on intermediate dose of Lovenox for COVID-19 pneumonia. 07/11: Continue to wean high flow as tolerated. Continue COVID-19 protocol per [facility] policy. ID and pulmonary input noted. 07/12: Continue current management wean as tolerated. Continues on remdesivir and Decadron. We will give a dose of Lasix today. Continue to monitor I's and O's. Patient wants cough suppressant discussed the effectiveness of good cough to help keep the airways open. Trial of Robitussin for comfort measures. Patient remains critically ill. We will also check a serum muscularity we will add some vitamins supplementation. 07/13; still with fever, unfortunately appears that the oxygen demand went up. Patient received a dose of Lasix yesterday. Cough is slightly improving. We will continue current management. Prognosis remains guarded 07/14: Continue supportive care, will give additional lasix today. Oxygen FIO2 d own to 80% with sat 94% 07/15: Continue supportive care. Will hold off on Lasix today and repeat may be tomorrow. Remains on high flow oxygen at this time. Prognosis is still guarded 07/17; patient is critically ill, on high flow oxygen, worsening inflammatory markers, poor prognosis We will continue current management, consults recommendations followed 07/18: Continues to show some improvement. ID and pulmonary input appreciated Lasix given today. Continue to wean as tolerated 07/19: Stefany on high flow although clinically improving continue to encourage prone positioning. Complete steroid therapy as prescribed. Patient has completed remdesivir. 07/21/20; Clinically improved although still Hypoxic on Room air. Plan was to discharge on oxygen but patients insurance does not cover oxygen at this time, will continue to monitor and wean oxygen as tolerated. Patient completed Remdes ivir and Steroids. (1) Sepsis Current Visit: Yes Status: Acute Plan to address problem: -Presented with hypotension, acute hypoxic respiratory failure, febrile, leukocytosis and pneumonia on CXR -Infectious disease consulted, appreciate recommendation -Antibiotic therapy -07/08 blood cultures x2 with no growth after 5 days -07/08 urinalysis negative for leukocyte esterase and nitrates (2) Bilateral pneumonia secondary to COVID-19 infection Current Visit: Yes Status: Acute Plan to address problem: -Tested positive for COVID-19 few days prior to presentation -07/09 COVID-19 PCR positive -Infectious disease and pulmonology consulted, appreciate recommendations -Droplet/contact isolation -Supplemental oxygen as needed -Trend inflammatory markers -Prone to sleep as needed -Vitamin D, vitamin C, zinc -S/p remdesivir and steroid therapy -Pulmonary hygiene -OOB 3 times daily -Anticoagulation per protocol (3) Acute hypoxic respiratory failure due to COVID-19 Current Visit: Yes Status: Acute Plan to address problem: -Supplemental oxygen as needed -Pulmonary consult -Pulmonary hygiene -SPO2 monitoring (4) DVT prophylaxis Current Visit: Yes Status: Acute Plan to address problem: -Patient placed on subcutaneous Lovenox. -SCDs to bilateral shins while in bed History Interval history: Patient seen and examined sitting up now on nasal cannula Hospitalist Physical - Physical exam Narrative exam: no significant distress. On Nasal cannula. Sitting up The patient appeared well nourished and normally developed. Vital signs as documented. Head exam is unremarkable. No scleral icterus . Neck is without jugular venous distension, thyromegaly, or carotid bruits. Lungs are clear to auscultation. Cardiac exam reveals regular rate and Rhythm. Abdominal exam reveals normal bowel sounds, nontender, no organomegaly. Extremities are nonedematous and both femoral and pedal pulses are normal. 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 No focal weakness. - Constitutional Vitals: Temp Pulse Resp BP Pulse Ox 98.1 F 91 H 28 H 129/85 91 07/21/20 22:21 07/21/20 22:21 07/21/20 22:21 07/21/20 22:21 07/21/20 22:21 General appearance: Present: no acute distress, well-nourished Results - Labs CBC & Chem 7: 07/16/20 08:53 07/20/20 10:09 Labs: Laboratory Last Values WBC 9.3 K/mm3 (4.5-11.0) 07/16/20 08:53 RBC 4.64 M/mm3 (3.65-5.03) 07/16/20 08:53 Hgb 14.5 gm/dl (11.8-15.2) 07/16/20 08:53 Hct 43.7 % (35.5-45.6) 07/16/20 08:53 MCV 94 fl (84-94) 07/16/20 08:53 MCH 31 pg (28-32) 07/16/20 08:53 MCHC 33 % (32-34) 07/16/20 08:53 RDW 12.7 % (13.2-15.2) L 07/16/20 08:53 Plt Count 411 K/mm3 (140-440) 07/16/20 08:53 Lymph % (Auto) 6.7 % (13.4-35.0) L 07/10/20 04:52 Hughes % (Auto) 3.8 % (0.0-7.3) 07/10/20 04:52 Eos % (Auto) 0.0 % (0.0-4.3) 07/10/20 04:52 Baso % (Auto) 0.3 % (0.0-1.8) 07/10/20 04:52 Lymph # (Auto) 0.8 K/mm3 (1.2-5.4) L 07/10/20 04:52 Hughes # (Auto) 0.4 K/mm3 (0.0-0.8) 07/10/20 04:52 Eos # (Auto) 0.0 K/mm3 (0.0-0.4) 07/10/20 04:52 Baso # (Auto) 0.0 K/mm3 (0.0-0.1) 07/10/20 04:52 Seg Neutrophils % 89.2 % (40.0-70.0) H 07/10/20 04:52 Seg Neutrophils # 10.1 K/mm3 (1.8-7.7) H 07/10/20 04:52 PT 13.3 Sec. (12.2-14.9) 07/09/20 06:00 INR 1.03 (0.87-1.13) 07/09/20 06:00 D-Dimer 1116.17 ng/mlDDU (0-234) H 07/16/20 21:15 Sodium 131 mmol/L (137-145) L 07/20/20 10:09 Potassium 4.2 mmol/L (3.6-5.0) 07/20/20 10:09 Chloride 95.7 mmol/L (98-107) L 07/20/20 10:09 Carbon Dioxide 29 mmol/L (22-30) 07/20/20 10:09 Anion Gap 11 mmol/L 07/20/20 10:09 BUN 16 mg/dL (9-20) 07/20/20 10:09 Creatinine 0.9 mg/dL (0.8-1.3) 07/20/20 10:09 Estimated GFR > 60 ml/min 07/20/20 10:09 BUN/Creatinine Ratio 18 % 07/20/20 10:09 Glucose 155 mg/dL (75-100) H 07/20/20 10:09 Osmolality 288 Mosm/kg 07/12/20 13:42 Lactic Acid 1.00 mmol/L (0.7-2.0) 07/08/20 20:58 Calcium 9.0 mg/dL (8.4-10.2) 07/20/20 10:09 Phosphorus 3.10 mg/dL (2.5-4.5) 07/18/20 11:24 Magnesium 2.10 mg/dL (1.7-2.3) 07/18/20 11:24 Ferritin > 2000.0 ng/mL (30.0-300.0) H 07/16/20 21:15 Total Bilirubin 0.20 mg/dL (0.1-1.2) 07/11/20 04:36 Direct Bilirubin < 0.2 mg/dL (0-0.2) 07/11/20 04:36 Indirect Bilirubin 0.0 mg/dL 07/11/20 04:36 AST 33 units/L (5-40) 07/11/20 04:36 ALT 26 units/L (7-56) 07/11/20 04:36 Alkaline Phosphatase 51 units/L (35-129) 07/11/20 04:36 Lactate Dehydrogenase 337 units/L (91-180) H 07/16/20 21:15 C-Reactive Protein 7.30 mg/dL (0.00-1.30) H 07/16/20 21:15 Total Protein 6.3 g/dL (6.3-8.2) D 07/11/20 04:36 Albumin 3.2 g/dL (3.9-5) L 07/11/20 04:36 Albumin/Globulin Ratio 1.0 % 07/11/20 04:36 Procalcitonin 0.22 ng/mL (<0.15) 07/08/20 17:38 Urine Color Jaclyn (Yellow) 07/08/20 18:30 Urine Turbidity Clear (Clear) 07/08/20 18:30 Urine pH 5.0 (5.0-7.0) 07/08/20 18:30 Ur Specific [place] 1.027 (1.003-1.030) 07/08/20 18:30 Urine Protein >500 mg/dL (Negative) 07/08/20 18:30 Urine Glucose (UA) Neg mg/dL (Negative) 07/08/20 18:30 Urine Ketones Neg mg/dL (Negative) 07/08/20 18:30 Urine Blood Neg (Negative) 07/08/20 18:30 Urine Nitrite Neg (Negative) 07/08/20 18:30 Urine Bilirubin Neg (Negative) 07/08/20 18:30 Urine Urobilinogen 4.0 mg/dL (<2.0) 07/08/20 18:30 Ur Leukocyte Esterase Neg (Negative) 07/08/20 18:30 Urine WBC (Auto) 2.0 /HPF (0.0-6.0) 07/08/20 18:30 Urine RBC (Auto) 2.0 /HPF (0.0-6.0) 07/08/20 18:30 U Epithel Cells (Auto) 1.0 /HPF (0-13.0) 07/08/20 18:30 Urine Mucus Few /HPF 07/08/20 18:30 Nasal Screen MRSA (PCR) Negative (Negative) 07/11/20 18:05 Coronavirus (PCR) Positive (Negative) A 07/09/20 08:38 Qiu/IV: Voiding Method Toilet IV Catheter Type [Right Peripheral IV Antecubital] IV Catheter Type [Left Peripheral IV Antecubital] Active Medications - Current Medications Current Medications: Generic Name Dose Route Start Last Admin Trade Name Freq PRN Reason Stop Dose Admin Acetaminophen 650 mg 07/08/20 21:33 07/12/20 15:29 Acetaminophen 325 Mg Tab PO 650 mg Q4H PRN Administration Pain MILD(1-3)/Fever >100.5/MORENO Ascorbic Acid 1,000 mg 07/12/20 10:00 07/21/20 22:30 Ascorbic Acid 500 Mg Tab PO 1,000 mg BID BRIANNA Administration Cholecalciferol 5,000 unit 07/12/20 10:00 07/21/20 11:00 Cholecalciferol (Vit D3) 5,000 Unit Tab PO 5,000 unit DAILY BRIANNA Administration Enoxaparin Sodium 40 mg 07/10/20 10:00 07/21/20 22:30 Enoxaparin 40 Mg/0.4 Ml Inj SUB-Q 40 mg BID BRIANNA Administration Protocol Guaifenesin 200 mg 07/14/20 22:07 07/19/20 21:38 Guaifenesin 100 Mg/5 Ml Oral Liqd PO 200 mg Q4H PRN Administration Cough Magnesium Hydroxide 30 ml 07/08/20 21:33 07/19/20 13:35 Magnesium Hydroxide (Mom) Oral Liqd Udc PO 30 ml Q4H PRN Administration Constipation Ondansetron HCl 4 mg 07/08/20 21:33 07/16/20 21:00 Ondansetron 4 Mg/2 Ml Inj IV 4 mg Q8H PRN Administration Nausea And Vomiting Oxycodone HCl 5 mg 07/09/20 17:00 07/10/20 17:13 Oxycodone 5 Mg Tab PO 5 mg Q6H PRN Administration Pain, Moderate (4-6) Pseudoephedrine/Acetam/Chlorphenir 15 ml 07/09/20 12:00 07/12/20 15:29 Guaifenesin/Codeine 100-10mg Oral Liqd 5 Ml PO 15 ml Q4H PRN Administration Cough Sodium Chloride 10 ml 07/08/20 22:00 07/21/20 22:29 Sodium Chloride 0.9% 10 Ml Flush Syringe IV 10 ml BID BRIANNA Administration Sodium Chloride 10 ml 07/08/20 21:33 Sodium Chloride 0.9% 10 Ml Flush Syringe IV PRN PRN LINE FLUSH Zinc Sulfate 220 mg 07/12/20 10:00 07/21/20 10:59 Zinc Sulfate 220 Mg Cap PO 220 mg QDAY BRIANNA Administration Nutrition/Malnutrition Assess - Dietary Evaluation Nutrition/Malnutrition Findings: Nutrition Notes Start: 07/12/20 10:48 Freq: Status: Active Protocol: Document 07/19/20 13:23 LM (Rec: 07/19/20 13:26 LM [id number]) Nutrition Notes Initial or Follow up Brief Note Weight change and time frame 5% wt loss in 1 week Subjective/Other Information 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 Pt stated he is doing better now. Food preferences noted. Minimum of two criteria No Interpretation of Weight Loss (severe) >2% in 1 week Nutrition Intervention Revisit per MD consult or patient Sign Off request:
--- NOTE | 2020-07-22 08:49 | Progress Note ---
Assessment and Plan Assessment and plan: 54-year-old male with hypertension who presented to the emergency department on 07/08 with complaints of shortness of breath and generalized weakness. He tested positive for COVID-19 3 days prior to presentation. Upon arrival to the emergency department he was hypotensive, febrile, tachypneic and hypoxic and was placed on 3 L oxygen via nasal cannula. His CXR showed bilateral pneumonia and he had lactic acidosis. Patient was initiated on sepsis protocol, started on antibiotics and steroid therapy. He was admitted to the hospital with pneumonia secondary to COVID-19. Infectious disease and pulmonology were consulted. Today at the time my examination patient is on 5 L nasal cannula and this morning I ordered a ambulatory SPO2. Patient is status post remdesivir and steroid therapy. Possible discharge in the a.m. if ambulatory SPO2 is acceptable. No acute events reported overnight. 07/09/2020; patient is admitted for sepsis secondary to Covid-19 pneumonia versus bacterial pneumonia. Patient is on IV Decadron and ID is consulted for remdesivir treatment. Patient is still short of breath, on 10 L of high flow oxygen. 07/10/2020; patient is on high flow oxygen, hyper etc. secondary to COVID-19 pneumonia versus bacterial pneumonia. Continue with IV antibiotics, remdesivir and Decadron. Pulmonary and ID consult appreciated. Patient is on intermediate dose of Lovenox for COVID-19 pneumonia. 07/11: Continue to wean high flow as tolerated. Continue COVID-19 protocol per [facility] policy. ID and pulmonary input noted. 07/12: Continue current management wean as tolerated. Continues on remdesivir and Decadron. We will give a dose of Lasix today. Continue to monitor I's and O's. Patient wants cough suppressant discussed the effectiveness of good cough to help keep the airways open. Trial of Robitussin for comfort measures. Patient remains critically ill. We will also check a serum muscularity we will add some vitamins supplementation. 07/13; still with fever, unfortunately appears that the oxygen demand went up. Patient received a dose of Lasix yesterday. Cough is slightly improving. We will continue current management. Prognosis remains guarded 07/14: Continue supportive care, will give additional lasix today. Oxygen FIO2 d own to 80% with sat 94% 07/15: Continue supportive care. Will hold off on Lasix today and repeat may be tomorrow. Remains on high flow oxygen at this time. Prognosis is still guarded 07/17; patient is critically ill, on high flow oxygen, worsening inflammatory markers, poor prognosis We will continue current management, consults recommendations followed 07/18: Continues to show some improvement. ID and pulmonary input appreciated Lasix given today. Continue to wean as tolerated 07/19: Stefany on high flow although clinically improving continue to encourage prone positioning. Complete steroid therapy as prescribed. Patient has completed remdesivir. 07/21/20; Clinically improved although still Hypoxic on Room air. Plan was to discharge on oxygen but patients insurance does not cover oxygen at this time, will continue to monitor and wean oxygen as tolerated. Patient completed Remdes ivir and Steroids. 07/22: Continue supportive care. wean oxygen as tolerated. Awaiting home o2 for discharge. can discontinue Tele, no events. (1) Sepsis Current Visit: Yes Status: Acute Plan to address problem: -Presented with hypotension, acute hypoxic respiratory failure, febrile, leukocytosis and pneumonia on CXR -Infectious disease consulted, appreciate recommendation -Antibiotic therapy -07/08 blood cultures x2 with no growth after 5 days -07/08 urinalysis negative for leukocyte esterase and nitrates (2) Bilateral pneumonia secondary to COVID-19 infection Current Visit: Yes Status: Acute Plan to address problem: -Tested positive for COVID-19 few days prior to presentation -07/09 COVID-19 PCR positive -Infectious disease and pulmonology consulted, appreciate recommendations -Droplet/contact isolation -Supplemental oxygen as needed -Trend inflammatory markers -Prone to sleep as needed -Vitamin D, vitamin C, zinc -S/p remdesivir and steroid therapy -Pulmonary hygiene -OOB 3 times daily -Anticoagulation per protocol (3) Acute hypoxic respiratory failure due to COVID-19 Current Visit: Yes Status: Acute Plan to address problem: -Supplemental oxygen as needed -Pulmonary consult -Pulmonary hygiene -SPO2 monitoring (4) DVT prophylaxis Current Visit: Yes Status: Acute Plan to address problem: -Patient placed on subcutaneous Lovenox. -SCDs to bilateral shins while in bed History Interval history: Patient seen and examined sitting up now on nasal cannula, improving some Hospitalist Physical - Physical exam Narrative exam: no significant distress. On Nasal cannula. Sitting up The patient appeared well nourished and normally developed. Vital signs as documented. Head exam is unremarkable. No scleral icterus . Neck is without jugular venous distension, thyromegaly, or carotid bruits. Lungs are clear to auscultation. Cardiac exam reveals regular rate and Rhythm. Abdominal exam reveals normal bowel sounds, nontender, no organomegaly. Extremities are nonedematous and both femoral and pedal pulses are normal. 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 No focal weakness. - Constitutional Vitals: Temp Pulse Resp BP Pulse Ox 98.6 F 95 H 20 138/83 95 07/22/20 04:50 07/22/20 04:50 07/22/20 04:50 07/22/20 04:50 07/22/20 04:50 General appearance: Present: no acute distress, well-nourished Results - Labs CBC & Chem 7: 07/16/20 08:53 07/20/20 10:09 Labs: Laboratory Last Values WBC 9.3 K/mm3 (4.5-11.0) 07/16/20 08:53 RBC 4.64 M/mm3 (3.65-5.03) 07/16/20 08:53 Hgb 14.5 gm/dl (11.8-15.2) 07/16/20 08:53 Hct 43.7 % (35.5-45.6) 07/16/20 08:53 MCV 94 fl (84-94) 07/16/20 08:53 MCH 31 pg (28-32) 07/16/20 08:53 MCHC 33 % (32-34) 07/16/20 08:53 RDW 12.7 % (13.2-15.2) L 07/16/20 08:53 Plt Count 411 K/mm3 (140-440) 07/16/20 08:53 Lymph % (Auto) 6.7 % (13.4-35.0) L 07/10/20 04:52 [place] % (Auto) 3.8 % (0.0-7.3) 07/10/20 04:52 Eos % (Auto) 0.0 % (0.0-4.3) 07/10/20 04:52 Baso % (Auto) 0.3 % (0.0-1.8) 07/10/20 04:52 Lymph # (Auto) 0.8 K/mm3 (1.2-5.4) L 07/10/20 04:52 [place] # (Auto) 0.4 K/mm3 (0.0-0.8) 07/10/20 04:52 Eos # (Auto) 0.0 K/mm3 (0.0-0.4) 07/10/20 04:52 Baso # (Auto) 0.0 K/mm3 (0.0-0.1) 07/10/20 04:52 Seg Neutrophils % 89.2 % (40.0-70.0) H 07/10/20 04:52 Seg Neutrophils # 10.1 K/mm3 (1.8-7.7) H 07/10/20 04:52 PT 13.3 Sec. (12.2-14.9) 07/09/20 06:00 INR 1.03 (0.87-1.13) 07/09/20 06:00 D-Dimer 1116.17 ng/mlDDU (0-234) H 07/16/20 21:15 Sodium 131 mmol/L (137-145) L 07/20/20 10:09 Potassium 4.2 mmol/L (3.6-5.0) 07/20/20 10:09 Chloride 95.7 mmol/L (98-107) L 07/20/20 10:09 Carbon Dioxide 29 mmol/L (22-30) 07/20/20 10:09 Anion Gap 11 mmol/L 07/20/20 10:09 BUN 16 mg/dL (9-20) 07/20/20 10:09 Creatinine 0.9 mg/dL (0.8-1.3) 07/20/20 10:09 Estimated GFR > 60 ml/min 07/20/20 10:09 BUN/Creatinine Ratio 18 % 07/20/20 10:09 Glucose 155 mg/dL (75-100) H 07/20/20 10:09 Osmolality 288 Mosm/kg 07/12/20 13:42 Lactic Acid 1.00 mmol/L (0.7-2.0) 07/08/20 20:58 Calcium 9.0 mg/dL (8.4-10.2) 07/20/20 10:09 Phosphorus 3.10 mg/dL (2.5-4.5) 07/18/20 11:24 Magnesium 2.10 mg/dL (1.7-2.3) 07/18/20 11:24 Ferritin > 2000.0 ng/mL (30.0-300.0) H 07/16/20 21:15 Total Bilirubin 0.20 mg/dL (0.1-1.2) 07/11/20 04:36 Direct Bilirubin < 0.2 mg/dL (0-0.2) 07/11/20 04:36 Indirect Bilirubin 0.0 mg/dL 07/11/20 04:36 AST 33 units/L (5-40) 07/11/20 04:36 ALT 26 units/L (7-56) 07/11/20 04:36 Alkaline Phosphatase 51 units/L (35-129) 07/11/20 04:36 Lactate Dehydrogenase 337 units/L (91-180) H 07/16/20 21:15 C-Reactive Protein 7.30 mg/dL (0.00-1.30) H 07/16/20 21:15 Total Protein 6.3 g/dL (6.3-8.2) D 07/11/20 04:36 Albumin 3.2 g/dL (3.9-5) L 07/11/20 04:36 Albumin/Globulin Ratio 1.0 % 07/11/20 04:36 Procalcitonin 0.22 ng/mL (<0.15) 07/08/20 17:38 Urine Color Jaclyn (Yellow) 07/08/20 18:30 Urine Turbidity Clear (Clear) 07/08/20 18:30 Urine pH 5.0 (5.0-7.0) 07/08/20 18:30 Ur Specific [place] 1.027 (1.003-1.030) 07/08/20 18:30 Urine Protein >500 mg/dL (Negative) 07/08/20 18:30 Urine Glucose (UA) Neg mg/dL (Negative) 07/08/20 18:30 Urine Ketones Neg mg/dL (Negative) 07/08/20 18:30 Urine Blood Neg (Negative) 07/08/20 18:30 Urine Nitrite Neg (Negative) 07/08/20 18:30 Urine Bilirubin Neg (Negative) 07/08/20 18:30 Urine Urobilinogen 4.0 mg/dL (<2.0) 07/08/20 18:30 Ur Leukocyte Esterase Neg (Negative) 07/08/20 18:30 Urine WBC (Auto) 2.0 /HPF (0.0-6.0) 07/08/20 18:30 Urine RBC (Auto) 2.0 /HPF (0.0-6.0) 07/08/20 18:30 U Epithel Cells (Auto) 1.0 /HPF (0-13.0) 07/08/20 18:30 Urine Mucus Few /HPF 07/08/20 18:30 Nasal Screen MRSA (PCR) Negative (Negative) 07/11/20 18:05 Coronavirus (PCR) Positive (Negative) A 07/09/20 08:38 Qiu/IV: Voiding Method Toilet IV Catheter Type [Right Peripheral IV Antecubital] IV Catheter Type [Left Peripheral IV Antecubital] Active Medications - Current Medications Current Medications: Generic Name Dose Route Start Last Admin Trade Name Freq PRN Reason Stop Dose Admin Acetaminophen 650 mg 07/08/20 21:33 07/12/20 15:29 Acetaminophen 325 Mg Tab PO 650 mg Q4H PRN Administration Pain MILD(1-3)/Fever >100.5/MORENO Ascorbic Acid 1,000 mg 07/12/20 10:00 07/21/20 22:30 Ascorbic Acid 500 Mg Tab PO 1,000 mg BID BRIANNA Administration Cholecalciferol 5,000 unit 07/12/20 10:00 07/21/20 11:00 Cholecalciferol (Vit D3) 5,000 Unit Tab PO 5,000 unit DAILY BRIANNA Administration Enoxaparin Sodium 40 mg 07/10/20 10:00 07/21/20 22:30 Enoxaparin 40 Mg/0.4 Ml Inj SUB-Q 40 mg BID BRIANNA Administration Protocol Guaifenesin 200 mg 07/14/20 22:07 07/19/20 21:38 Guaifenesin 100 Mg/5 Ml Oral Liqd PO 200 mg Q4H PRN Administration Cough Magnesium Hydroxide 30 ml 07/08/20 21:33 07/19/20 13:35 Magnesium Hydroxide (Mom) Oral Liqd Udc PO 30 ml Q4H PRN Administration Constipation Ondansetron HCl 4 mg 07/08/20 21:33 07/16/20 21:00 Ondansetron 4 Mg/2 Ml Inj IV 4 mg Q8H PRN Administration Nausea And Vomiting Oxycodone HCl 5 mg 07/09/20 17:00 07/10/20 17:13 Oxycodone 5 Mg Tab PO 5 mg Q6H PRN Administration Pain, Moderate (4-6) Pseudoephedrine/Acetam/Chlorphenir 15 ml 07/09/20 12:00 07/12/20 15:29 Guaifenesin/Codeine 100-10mg Oral Liqd 5 Ml PO 15 ml Q4H PRN Administration Cough Sodium Chloride 10 ml 07/08/20 22:00 07/21/20 22:29 Sodium Chloride 0.9% 10 Ml Flush Syringe IV 10 ml BID BRIANNA Administration Sodium Chloride 10 ml 07/08/20 21:33 Sodium Chloride 0.9% 10 Ml Flush Syringe IV PRN PRN LINE FLUSH Zinc Sulfate 220 mg 07/12/20 10:00 07/21/20 10:59 Zinc Sulfate 220 Mg Cap PO 220 mg QDAY BRIANNA Administration Nutrition/Malnutrition Assess - Dietary Evaluation Nutrition/Malnutrition Findings: Nutrition Notes Start: 07/12/20 10:48 Freq: Status: Active Protocol: Document 07/19/20 13:23 LM (Rec: 07/19/20 13:26 LM [id number]) Nutrition Notes Initial or Follow up Brief Note Weight change and time frame 5% wt loss in 1 week Subjective/Other Information 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 Pt stated he is doing better now. Food preferences noted. Minimum of two criteria No Interpretation of Weight Loss (severe) >2% in 1 week Nutrition Intervention Revisit per MD consult or patient Sign Off request:
[2020-07-22] MEDS: ENOXAPARIN 40 MG/0.4 ML INJ SUB-Q SCH ×2 (10:52→21:30)
[2020-07-22] MEDS: CHOLECALCIFEROL (VIT D3) 5,000 UNIT TAB PO SCH (10:52)
[2020-07-22] MEDS: ASCORBIC ACID 500 MG TAB PO SCH ×2 (10:52→21:31)
[2020-07-22] MEDS: ZINC SULFATE 220 MG CAP PO SCH (10:53)
[2020-07-22] MEDS: guaiFENesin 100 MG/5 ML ORAL LIQD PO PRN (21:31)
[2020-07-23] MEDS: ENOXAPARIN 40 MG/0.4 ML INJ SUB-Q SCH ×2 (10:15→21:46)
[2020-07-23] MEDS: ASCORBIC ACID 500 MG TAB PO SCH ×2 (10:16→21:47)
[2020-07-23] MEDS: ZINC SULFATE 220 MG CAP PO SCH (10:16)
[2020-07-23] MEDS: CHOLECALCIFEROL (VIT D3) 5,000 UNIT TAB PO SCH (10:17)
--- NOTE | 2020-07-23 13:53 | Progress Note ---
Assessment and Plan Assessment and plan: 54-year-old male with hypertension who presented to the emergency department on 07/08 with complaints of shortness of breath and generalized weakness. He tested positive for COVID-19 3 days prior to presentation. Upon arrival to the emergency department he was hypotensive, febrile, tachypneic and hypoxic and was placed on 3 L oxygen via nasal cannula. His CXR showed bilateral pneumonia and he had lactic acidosis. Patient was initiated on sepsis protocol, started on antibiotics and steroid therapy. He was admitted to the hospital with pneumonia secondary to COVID-19. Infectious disease and pulmonology were consulted. Today at the time my examination patient is on 5 L nasal cannula and this morning I ordered a ambulatory SPO2. Patient is status post remdesivir and steroid therapy. Possible discharge in the a.m. if ambulatory SPO2 is acceptable. No acute events reported overnight. 07/09/2020; patient is admitted for sepsis secondary to Covid-19 pneumonia versus bacterial pneumonia. Patient is on IV Decadron and ID is consulted for remdesivir treatment. Patient is still short of breath, on 10 L of high flow oxygen. 07/10/2020; patient is on high flow oxygen, hyper etc. secondary to COVID-19 pneumonia versus bacterial pneumonia. Continue with IV antibiotics, remdesivir and Decadron. Pulmonary and ID consult appreciated. Patient is on intermediate dose of Lovenox for COVID-19 pneumonia. 07/11: Continue to wean high flow as tolerated. Continue COVID-19 protocol per [facility] policy. ID and pulmonary input noted. 07/12: Continue current management wean as tolerated. Continues on remdesivir and Decadron. We will give a dose of Lasix today. Continue to monitor I's and O's. Patient wants cough suppressant discussed the effectiveness of good cough to help keep the airways open. Trial of Robitussin for comfort measures. Patient remains critically ill. We will also check a serum muscularity we will add some vitamins supplementation. 07/13; still with fever, unfortunately appears that the oxygen demand went up. Patient received a dose of Lasix yesterday. Cough is slightly improving. We will continue current management. Prognosis remains guarded 07/14: Continue supportive care, will give additional lasix today. Oxygen FIO2 d own to 80% with sat 94% 07/15: Continue supportive care. Will hold off on Lasix today and repeat may be tomorrow. Remains on high flow oxygen at this time. Prognosis is still guarded 07/17; patient is critically ill, on high flow oxygen, worsening inflammatory markers, poor prognosis We will continue current management, consults recommendations followed 07/18: Continues to show some improvement. ID and pulmonary input appreciated Lasix given today. Continue to wean as tolerated 07/19: Stefany on high flow although clinically improving continue to encourage prone positioning. Complete steroid therapy as prescribed. Patient has completed remdesivir. 07/21/20; Clinically improved although still Hypoxic on Room air. Plan was to discharge on oxygen but patients insurance does not cover oxygen at this time, will continue to monitor and wean oxygen as tolerated. Patient completed Remdes ivir and Steroids. 07/22: Continue supportive care. wean oxygen as tolerated. Awaiting home o2 for discharge. can discontinue Tele, no events. 07/23: Continue to wean, patient awaiting Home oxygen. (1) Sepsis Current Visit: Yes Status: Acute Plan to address problem: -Presented with hypotension, acute hypoxic respiratory failure, febrile, leukocytosis and pneumonia on CXR -Infectious disease consulted, appreciate recommendation -Antibiotic therapy -07/08 blood cultures x2 with no growth after 5 days -07/08 urinalysis negative for leukocyte esterase and nitrates (2) Bilateral pneumonia secondary to COVID-19 infection Current Visit: Yes Status: Acute Plan to address problem: -Tested positive for COVID-19 few days prior to presentation -07/09 COVID-19 PCR positive -Infectious disease and pulmonology consulted, appreciate recommendations -Droplet/contact isolation -Supplemental oxygen as needed -Trend inflammatory markers -Prone to sleep as needed -Vitamin D, vitamin C, zinc -S/p remdesivir and steroid therapy -Pulmonary hygiene -OOB 3 times daily -Anticoagulation per protocol (3) Acute hypoxic respiratory failure due to COVID-19 Current Visit: Yes Status: Acute Plan to address problem: -Supplemental oxygen as needed -Pulmonary consult -Pulmonary hygiene -SPO2 monitoring (4) DVT prophylaxis Current Visit: Yes Status: Acute Plan to address problem: -Patient placed on subcutaneous Lovenox. -SCDs to bilateral shins while in bed History Interval history: Patient seen and examined sitting up now on nasal cannula, improving some Hospitalist Physical - Physical exam Narrative exam: no significant distress. On Nasal cannula. Sitting up The patient appeared well nourished and normally developed. Vital signs as documented. Head exam is unremarkable. No scleral icterus . Neck is without jugular venous distension, thyromegaly, or carotid bruits. Lungs are clear to auscultation. Cardiac exam reveals regular rate and Rhythm. Abdominal exam reveals normal bowel sounds, nontender, no organomegaly. Extremities are nonedematous and both femoral and pedal pulses are normal. 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 No focal weakness. - Constitutional Vitals: Temp Pulse Resp BP Pulse Ox 98.4 F 99 H 20 143/83 95 07/23/20 11:23 07/23/20 11:23 07/23/20 11:23 07/23/20 11:23 07/23/20 13:47 General appearance: Present: no acute distress, well-nourished Results - Labs CBC & Chem 7: 07/16/20 08:53 07/20/20 10:09 Labs: Laboratory Last Values WBC 9.3 K/mm3 (4.5-11.0) 07/16/20 08:53 RBC 4.64 M/mm3 (3.65-5.03) 07/16/20 08:53 Hgb 14.5 gm/dl (11.8-15.2) 07/16/20 08:53 Hct 43.7 % (35.5-45.6) 07/16/20 08:53 MCV 94 fl (84-94) 07/16/20 08:53 MCH 31 pg (28-32) 07/16/20 08:53 MCHC 33 % (32-34) 07/16/20 08:53 RDW 12.7 % (13.2-15.2) L 07/16/20 08:53 Plt Count 411 K/mm3 (140-440) 07/16/20 08:53 Lymph % (Auto) 6.7 % (13.4-35.0) L 07/10/20 04:52 [place] % (Auto) 3.8 % (0.0-7.3) 07/10/20 04:52 Eos % (Auto) 0.0 % (0.0-4.3) 07/10/20 04:52 Baso % (Auto) 0.3 % (0.0-1.8) 07/10/20 04:52 Lymph # (Auto) 0.8 K/mm3 (1.2-5.4) L 07/10/20 04:52 [place] # (Auto) 0.4 K/mm3 (0.0-0.8) 07/10/20 04:52 Eos # (Auto) 0.0 K/mm3 (0.0-0.4) 07/10/20 04:52 Baso # (Auto) 0.0 K/mm3 (0.0-0.1) 07/10/20 04:52 Seg Neutrophils % 89.2 % (40.0-70.0) H 07/10/20 04:52 Seg Neutrophils # 10.1 K/mm3 (1.8-7.7) H 07/10/20 04:52 PT 13.3 Sec. (12.2-14.9) 07/09/20 06:00 INR 1.03 (0.87-1.13) 07/09/20 06:00 D-Dimer 1116.17 ng/mlDDU (0-234) H 07/16/20 21:15 Sodium 131 mmol/L (137-145) L 07/20/20 10:09 Potassium 4.2 mmol/L (3.6-5.0) 07/20/20 10:09 Chloride 95.7 mmol/L (98-107) L 07/20/20 10:09 Carbon Dioxide 29 mmol/L (22-30) 07/20/20 10:09 Anion Gap 11 mmol/L 07/20/20 10:09 BUN 16 mg/dL (9-20) 07/20/20 10:09 Creatinine 0.9 mg/dL (0.8-1.3) 07/20/20 10:09 Estimated GFR > 60 ml/min 07/20/20 10:09 BUN/Creatinine Ratio 18 % 07/20/20 10:09 Glucose 155 mg/dL (75-100) H 07/20/20 10:09 Osmolality 288 Mosm/kg 07/12/20 13:42 Lactic Acid 1.00 mmol/L (0.7-2.0) 07/08/20 20:58 Calcium 9.0 mg/dL (8.4-10.2) 07/20/20 10:09 Phosphorus 3.10 mg/dL (2.5-4.5) 07/18/20 11:24 Magnesium 2.10 mg/dL (1.7-2.3) 07/18/20 11:24 Ferritin > 2000.0 ng/mL (30.0-300.0) H 07/16/20 21:15 Total Bilirubin 0.20 mg/dL (0.1-1.2) 07/11/20 04:36 Direct Bilirubin < 0.2 mg/dL (0-0.2) 07/11/20 04:36 Indirect Bilirubin 0.0 mg/dL 07/11/20 04:36 AST 33 units/L (5-40) 07/11/20 04:36 ALT 26 units/L (7-56) 07/11/20 04:36 Alkaline Phosphatase 51 units/L (35-129) 07/11/20 04:36 Lactate Dehydrogenase 337 units/L (91-180) H 07/16/20 21:15 C-Reactive Protein 7.30 mg/dL (0.00-1.30) H 07/16/20 21:15 Total Protein 6.3 g/dL (6.3-8.2) D 07/11/20 04:36 Albumin 3.2 g/dL (3.9-5) L 07/11/20 04:36 Albumin/Globulin Ratio 1.0 % 07/11/20 04:36 Procalcitonin 0.22 ng/mL (<0.15) 07/08/20 17:38 Urine Color [place] (Yellow) 07/08/20 18:30 Urine Turbidity Clear (Clear) 07/08/20 18:30 Urine pH 5.0 (5.0-7.0) 07/08/20 18:30 Ur Specific [place] 1.027 (1.003-1.030) 07/08/20 18:30 Urine Protein >500 mg/dL (Negative) 07/08/20 18:30 Urine Glucose (UA) Neg mg/dL (Negative) 07/08/20 18:30 Urine Ketones Neg mg/dL (Negative) 07/08/20 18:30 Urine Blood Neg (Negative) 07/08/20 18:30 Urine Nitrite Neg (Negative) 07/08/20 18:30 Urine Bilirubin Neg (Negative) 07/08/20 18:30 Urine Urobilinogen 4.0 mg/dL (<2.0) 07/08/20 18:30 Ur Leukocyte Esterase Neg (Negative) 07/08/20 18:30 Urine WBC (Auto) 2.0 /HPF (0.0-6.0) 07/08/20 18:30 Urine RBC (Auto) 2.0 /HPF (0.0-6.0) 07/08/20 18:30 U Epithel Cells (Auto) 1.0 /HPF (0-13.0) 07/08/20 18:30 Urine Mucus Few /HPF 07/08/20 18:30 Nasal Screen MRSA (PCR) Negative (Negative) 07/11/20 18:05 Coronavirus (PCR) Positive (Negative) A 07/09/20 08:38 Qiu/IV: Voiding Method Toilet IV Catheter Type [Right Peripheral IV Antecubital] IV Catheter Type [Left Peripheral IV Antecubital] Active Medications - Current Medications Current Medications: Generic Name Dose Route Start Last Admin Trade Name Freq PRN Reason Stop Dose Admin Acetaminophen 650 mg 07/08/20 21:33 07/12/20 15:29 Acetaminophen 325 Mg Tab PO 650 mg Q4H PRN Administration Pain MILD(1-3)/Fever >100.5/MORENO Ascorbic Acid 1,000 mg 07/12/20 10:00 07/23/20 10:16 Ascorbic Acid 500 Mg Tab PO 1,000 mg BID BRIANNA Administration Cholecalciferol 5,000 unit 07/12/20 10:00 07/23/20 10:17 Cholecalciferol (Vit D3) 5,000 Unit Tab PO 5,000 unit DAILY BRIANNA Administration Enoxaparin Sodium 40 mg 07/10/20 10:00 07/23/20 10:15 Enoxaparin 40 Mg/0.4 Ml Inj SUB-Q 40 mg BID BRIANNA Administration Protocol Guaifenesin 200 mg 07/14/20 22:07 07/22/20 21:31 Guaifenesin 100 Mg/5 Ml Oral Liqd PO 200 mg Q4H PRN Administration Cough Magnesium Hydroxide 30 ml 07/08/20 21:33 07/19/20 13:35 Magnesium Hydroxide (Mom) Oral Liqd Udc PO 30 ml Q4H PRN Administration Constipation Ondansetron HCl 4 mg 07/08/20 21:33 07/16/20 21:00 Ondansetron 4 Mg/2 Ml Inj IV 4 mg Q8H PRN Administration Nausea And Vomiting Oxycodone HCl 5 mg 07/09/20 17:00 07/10/20 17:13 Oxycodone 5 Mg Tab PO 5 mg Q6H PRN Administration Pain, Moderate (4-6) Pseudoephedrine/Acetam/Chlorphenir 15 ml 07/09/20 12:00 07/12/20 15:29 Guaifenesin/Codeine 100-10mg Oral Liqd 5 Ml PO 15 ml Q4H PRN Administration Cough Sodium Chloride 10 ml 07/08/20 22:00 07/23/20 10:17 Sodium Chloride 0.9% 10 Ml Flush Syringe IV 10 ml BID BRIANNA Administration Sodium Chloride 10 ml 07/08/20 21:33 Sodium Chloride 0.9% 10 Ml Flush Syringe IV PRN PRN LINE FLUSH Zinc Sulfate 220 mg 07/12/20 10:00 07/23/20 10:16 Zinc Sulfate 220 Mg Cap PO 220 mg QDAY BRIANNA Administration Nutrition/Malnutrition Assess - Dietary Evaluation Nutrition/Malnutrition Findings: Nutrition Notes Start: 07/12/20 10:48 Freq: Status: Active Protocol: Document 07/19/20 13:23 LM (Rec: 07/19/20 13:26 LM [email or web address]) Nutrition Notes Initial or Follow up Brief Note Weight change and time frame 5% wt loss in 1 week Subjective/Other Information 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 Pt stated he is doing better now. Food preferences noted. Minimum of two criteria No Interpretation of Weight Loss (severe) >2% in 1 week Nutrition Intervention Revisit per MD consult or patient Sign Off request:
[2020-07-23] MEDS: guaiFENesin 100 MG/5 ML ORAL LIQD PO PRN (22:40)
[2020-07-24] MEDS: ENOXAPARIN 40 MG/0.4 ML INJ SUB-Q SCH (09:40)
[2020-07-24] MEDS: ASCORBIC ACID 500 MG TAB PO SCH (09:40)
[2020-07-24] MEDS: ZINC SULFATE 220 MG CAP PO SCH (09:40)
[2020-07-24] MEDS: CHOLECALCIFEROL (VIT D3) 5,000 UNIT TAB PO SCH (09:40)
[2020-07-24 12:59] VITALS: BP 139/97
== END 2020-07-24 14:05 | disposition home or self-care (01) | DRG 871 ==
LOC: ED 17:26 → 3A 21:35
PROVIDERS: ADMIT Internal Medicine Geriatric Medicine; ATTEND Internal Medicine
PROC: 5A09357 Assistance with Respiratory Ventilation, Less than 24 Consecutive Hours, Continuous Positive Airway Pressure (ICD-10-PCS; 2020-07-08)
PROC: 5A09357 Assistance with Respiratory Ventilation, Less than 24 Consecutive Hours, Continuous Positive Airway Pressure (ICD-10-PCS; 2020-07-09)
PROC: XW033E5 Introduction of Remdesivir Anti-infective into Peripheral Vein, Percutaneous Approach, New Technology Group 5 (ICD-10-PCS; principal; 2020-07-10)
DX: A41.89 Other specified sepsis (principal); U07.1 COVID-19; J12.82 Pneumonia due to coronavirus disease 2019; J80 Acute respiratory distress syndrome; N17.9 Acute kidney failure, unspecified; I10 Essential (primary) hypertension; Z79.899 Other long term (current) drug therapy
CPT/HCPCS: 36415; 71045; 71275; 80048; 80053; 80076; 81001; 82140; 82728; 82947; 83615; 83735; 83930; 84100; 84145; 85025; 85027; 85379; 85610; 86140; 87040; 87641; 90471; 93970; 94760; 96365; 96375; G0378; J0456; J0696; J1100; J1650; J1940; J2270; J2405; J7030; J7050; J8540; Q9967; U0003